=== PATIENT | male | born 1960 | race Caucasian/White ===

== ENCOUNTER 2019-08-02 17:05 | Emergency (ER) | payer OTHER, SELFPAY ==
--- NOTE | ~2019-08-02 | XR_ITS ---
EXAMINATION: XR chest 1V portable 08/02/2019 17:53 INDICATION: Chest pressure. Shortness of breath. PROCEDURE: AP portable chest COMPARISON: 11/22/2011 FINDINGS: The lungs are clear. The cardiomediastinal silhouette is within normal limits. There are no pleural effusions. There is no pneumothorax suspected. IMPRESSION: 1: NO ACUTE CARDIOPULMONARY DISEASE. Reviewed, dictated and finalized at location A.
--- NOTE | 2019-08-02 17:23 | ECG_ITS ---
Measurements Intervals Effort Rate: 68 P: -15 IN: 167 QRS: 16 QRSD: 80 T: 37 QT: 317 QTc: 338 Interpretive Statements SINUS RHYTHM ATRIAL PREMATURE COMPLEX NONSPECIFIC T-WAVE ABNORMALITY- LATERAL LEADS BORDERLINE ECG Electronically Signed On 08-03-2019 7:07:27 CDT by Prashanth Kennedy D.O.
[2019-08-02 17:24] VITALS: BP 177/70; PULSE 75; RESP 18; TEMP 37; O2SAT 20
[2019-08-02 17:35] LABS: Basophils Percent Auto 0.4 % (0.2-1.2); Eosinophils Absolute Auto 0.1 K/mm3 (0-0.3); Eosinophils Percent Auto 1.4 % (0-4.4); Hematocrit 44.1 % (42.0-52.0); Hemoglobin 14.2 g/dL (14.0-18.0); Immature Granulocyte Absolute 0.04 K/mm3 (0.00-0.031); Immature Granulocyte Percent A 0.4 % (0-0.5); Lymphocytes Absolute Auto 2.59 K/mm3 (0.9-3.2); Lymphocytes Percent Auto 28.2 % (18.3-44.2); Mean Corpuscular HGB Conc 32.2 g/dl (32-36); Mean Corpuscular Hemoglobin 26.8 pg (26-34); Mean Corpuscular Volume 83.2 fl (80-100); Monocytes Absolute Auto 0.7 K/mm3 (0.1-0.6); Monocytes Percent Auto 7.7 % (2.6-8.5); Neutrophils Absolute Auto 5.7 K/mm3 (1.3-6.7); Neutrophils Percent Auto 61.9 % (45.5-73.1); Platelet Count Result 248 k/mm3 (150-375); Red Cell Distribution Width 14.7 % (11.5-14.5); White Blood Count 9.2 K/mm3 (4.5-10.0)
[2019-08-02 17:44] LABS: INR 0.9; Prothrombin Time 12.3 Seconds (11.1-14.7)
[2019-08-02 17:45] LABS: Partial Thromboplastin Time 29.2 SECONDS (22.3-36.8)
[2019-08-02] MEDS: ASPIRIN 81 MG CHEWABLE TABLET 324 MG PO (17:46)
[2019-08-02 17:52] LABS: Blood Urea Nitrogen 20 mg/dL (9-20); Calcium 9.7 mg/dL (8.4-10.2); Carbon Dioxide 25 mmol/L (22-30); Chloride 106 mmol/L (98-107); Estimated CRCL calculation 86 ml/min; Estimated Glomerular Filt Rate > 60; Glucose 113 mg/dL (75-110); Potassium 4.1 mmol/L (3.4-5.0); Sodium 139 mmol/L (137-145)
[2019-08-02 18:04] LABS: Troponin I < 0.012 ng/mL (0.000-0.034)
--- NOTE | 2019-08-02 18:58 | ED.CHESTPAIN ---
HPI - Chest Pain General Chief Complaint: Chest Pain Stated Complaint: CHEST CONGESTION Time Seen by Provider: 08/02/19 17:32 Related Data Allergies Allergy/AdvReac Type Severity Reaction Status Date / Time No Known Allergies Allergy Unverified 07/06/16 12:13 [facility] Social History Social History Gender identity (if verbalized by the patient): Male Course Vital Signs Vital signs: Vital Signs Temperature 37.0 C 08/02/19 17:24 Pulse Rate 75 08/02/19 17:24 Respiratory Rate 18 08/02/19 17:24 Blood Pressure 177/70 H 08/02/19 17:24 Pulse Oximetry 20 L 08/02/19 17:24 Temperature 37.0 C 08/02/19 17:24 Pulse Rate 66 08/02/19 20:00 Respiratory Rate 20 08/02/19 20:00 Blood Pressure 124/85 08/02/19 20:00 Pulse Oximetry 98 08/02/19 20:00 MDM - Chest Pain Lab Data Result diagrams: 08/02/19 17:28 08/02/19 17:28 Labs: Lab Results 08/02/19 08/02/19 08/02/19 Range/Units 17:28 17:28 17:28 WBC 9.2 (4.5-10.0) K/mm3 RBC 5.30 (4.6-6.20) M/mm3 Hgb 14.2 (14.0-18.0) g/dL Hct 44.1 (42.0-52.0) % MCV 83.2 (80-100) fl MCH 26.8 (26-34) pg MCHC 32.2 (32-36) g/dl RDW 14.7 H (11.5-14.5) % Plt Count 248 (150-375) k/mm3 MPV 10.0 (7.4-10.4) fl Immature Gran % (Auto) 0.4 (0-0.5) % Neut % (Auto) 61.9 (45.5-73.1) % Lymph % (Auto) 28.2 (18.3-44.2) % [place] % (Auto) 7.7 (2.6-8.5) % Eos % (Auto) 1.4 (0-4.4) % Baso % (Auto) 0.4 (0.2-1.2) % Lymph # (Auto) 2.59 (0.9-3.2) K/mm3 [place] # (Auto) 0.7 H (0.1-0.6) K/mm3 Eos # (Auto) 0.1 (0-0.3) K/mm3 Baso # (Auto) 0.0 (0.0-0.1) K/mm3 Abs Immat Gran (auto) 0.04 H (0.00-0.031) K/mm3 Absolute Neuts (auto) 5.7 (1.3-6.7) K/mm3 Absolute Nucleated RBC 0.0 (0.0-0.012) K/mm3 Nucleated RBC % 0.0 (0.0-0.2) % PT 12.3 (11.1-14.7) Seconds INR 0.9 APTT 29.2 (22.3-36.8) SECONDS Sodium 139 (137-145) mmol/L Potassium 4.1 (3.4-5.0) mmol/L Chloride 106 (98-107) mmol/L Carbon Dioxide 25 (22-30) mmol/L BUN 20 (9-20) mg/dL Creatinine 1.00 (0.7-1.3) mg/dL Estim Creat Clear Calc 86 ml/min Estimated GFR > 60 (59 - ) Glucose 113 H (75-110) mg/dL Calcium 9.7 (8.4-10.2) mg/dL Troponin I < 0.012 (0.000-0.034) ng/mL 08/02/19 Range/Units 20:32 WBC (4.5-10.0) K/mm3 RBC (4.6-6.20) M/mm3 Hgb (14.0-18.0) g/dL Hct (42.0-52.0) % MCV (80-100) fl MCH (26-34) pg MCHC (32-36) g/dl RDW (11.5-14.5) % Plt Count (150-375) k/mm3 MPV (7.4-10.4) fl Immature Gran % (Auto) (0-0.5) % Neut % (Auto) (45.5-73.1) % Lymph % (Auto) (18.3-44.2) % [place] % (Auto) (2.6-8.5) % Eos % (Auto) (0-4.4) % Baso % (Auto) (0.2-1.2) % Lymph # (Auto) (0.9-3.2) K/mm3 [place] # (Auto) (0.1-0.6) K/mm3 Eos # (Auto) (0-0.3) K/mm3 Baso # (Auto) (0.0-0.1) K/mm3 Abs Immat Gran (auto) (0.00-0.031) K/mm3 Absolute Neuts (auto) (1.3-6.7) K/mm3 Absolute Nucleated RBC (0.0-0.012) K/mm3 Nucleated RBC % (0.0-0.2) % PT (11.1-14.7) Seconds INR APTT (22.3-36.8) SECONDS Sodium (137-145) mmol/L Potassium (3.4-5.0) mmol/L Chloride (98-107) mmol/L Carbon Dioxide (22-30) mmol/L BUN (9-20) mg/dL Creatinine (0.7-1.3) mg/dL Estim Creat Clear Calc ml/min Estimated GFR (59 - ) Glucose (75-110) mg/dL Calcium (8.4-10.2) mg/dL Troponin I Pending (0.000-0.034) ng/mL ECG Data EKG #1: EKG Interpretation: normal rate, sinus rhythm, no ectopy, no ST changes, normal QT and NL axis Discharge Plan Discharge Clinical Impression: Nonspecific chest pain Patient Disposition: Home, Self-Care Condition: Stable Instructions: Antibiotic Form, Chest Pain (ED) Additional Instructions: follow up in the office in 3-5 days Follow-up/Referrals: Rui,TIGRE Martinez [Primary Care Provider] - [facility]
[2019-08-02 19:00] VITALS: BP 122/75; PULSE 66; PULSE 67; RESP 22; O2SAT 97
--- NOTE | 2019-08-02 19:51 | PC.NURSE ---
Assumed care of pt at this time. report from Gema FLYNN and RINA muniz
[2019-08-02 20:00] VITALS: BP 124/85; PULSE 66; RESP 20; O2SAT 98
[2019-08-02 21:00] LABS: Troponin I < 0.012 ng/mL (0.000-0.034)
[2019-08-02 21:15] VITALS: BP 129/81; PULSE 62; RESP 19; O2SAT 99
== END 2019-08-02 21:15 | disposition home or self-care (01) ==
PROVIDERS: Emergency Medicine; Emergency Provider Emergency Medicine; PCP Nurse Practitioner Adult Health
DX: R07.9 Chest pain, unspecified (principal); I49.1 Atrial premature depolarization; R94.31 Abnormal electrocardiogram [ECG] [EKG]
CPT/HCPCS: 36415; 71045; 80048; 84484; 85025; 85610; 85730; 93005; 99284; A9270

== ENCOUNTER → 2019-10-16 11:29 | Outpatient (REF) | payer OTHER, SELFPAY | LOC: ANHLAB 11:29 | PROVIDERS: PCP Nurse Practitioner Adult Health; Visit Provider Nurse Practitioner | DX: D49.2 Neoplasm of unspecified behavior of bone, soft tissue, and skin (principal) | CPT/HCPCS: 88305 ==

== ENCOUNTER → 2019-11-27 14:53 | Outpatient (REF) | payer OTHER, SELFPAY | LOC: ANHLAB 14:53 | PROVIDERS: PCP Nurse Practitioner Adult Health; Visit Provider Nurse Practitioner | DX: L98.9 Disorder of the skin and subcutaneous tissue, unspecified (principal) | CPT/HCPCS: 88305 ==

== ENCOUNTER → 2019-12-25 08:20 | Outpatient (REF) | payer OTHER, SELFPAY | LOC: ANHLAB 08:20 | PROVIDERS: PCP Nurse Practitioner Adult Health; Visit Provider Nurse Practitioner | DX: C44.619 Basal cell carcinoma of skin of left upper limb, including shoulder (principal) | CPT/HCPCS: 88305; 88331 ==

== ENCOUNTER 2020-03-20 11:22 | Emergency (ER) | payer OTHER, SELFPAY ==
--- NOTE | ~2020-03-20 | CT_ITS ---
EXAMINATION: CT abdomen pelvis wo con EXAM DATE: 03/20/2020 12:38 INDICATION: right flank pain, UTI TECHNIQUE: Spiral CT of the abdomen and pelvis was performed without contrast. Axial, coronal and sag ittal images were reviewed. The dose-length product (DLP) for this examination was 1297.99 mGy-cm. The exposure was tailored according to patient size (auto mA exposure control), and iterative reconst ruction (ASIR) was used as additional dose reduction technique. Comparison is made to prior examinati on from 01/08/2004. FINDINGS: There is no nephrolithiasis or hydronephrosis. There is an exophytic right renal cyst measu ring 2 cm. The prostate is unremarkable. Some diffuse bladder wall thickening, could indicate chroni c cystitis. Acute cystitis not excludable. The liver, spleen, adrenal glands and pancreas are unrema rkable. Gallbladder is unremarkable. No biliary obstruction. There is no retroperitoneal or pelvic lymphadenopathy. There is mild scattered arteriosclerotic disease. The appendix is normal. The stomach and small bowel are unremarkable. There is expected amount of c olonic stool. No free intraperitoneal gas. The heart is normal in size. There are no pericardial or pleural effusions. The lung bases are unremarkable. There are no osteoblastic or osteolytic les ions identified. There is right hip replacement. IMPRESSION: 1. No nephrolithiasis, hydronephrosis or acute intra-abdominal findings. Reviewed, dictated and finalized at location B. [employer] AGENT
[2020-03-20 11:32] VITALS: BP 186/99; PULSE 68; RESP 18; TEMP 36.6; O2SAT 100
--- NOTE | 2020-03-20 11:58 | ED.BACK ---
HPI - Back Pain/Injury General Chief Complaint: Back Pain/Injury <BRITTNEY Mei Last Filed: 03/20/20 14:16> Stated Complaint: right flank pain - sharp <BRITTNEY Mei Last Filed: 03/20/20 14:16> Time Seen by Provider: 03/20/20 11:36 <BRITTNEY Mei Last Filed: 03/20/20 14:16> Source: patient <BRITTNEY Mei Last Filed: 03/20/20 14:16> Mode of arrival: ambulatory <BRITTNEY Mei Last Filed: 03/20/20 14:16> Limitations: no limitations <BRITTNEY Mei Last Filed: 03/20/20 14:16> History of Present Illness HPI Narrative: This is a 60 year old male that presents to the ER for right sided mid back pain since this morning. Reports the pain is sharp in nature and intermittent. No known injury or trauma. Pain is worse with palpation. Reports he recently had a TURP and subsequently developed renal failure and was admitted to [facility] for weeks. Reports he is on dialysis for this. He was just discharged 2 days ago. He had outpatient dialysis today. Denies fever, chest pain, shortness of breath, abdominal pain, nausea, vomiting, dysuria or hematuria. <BRITTNEY Mei Last Filed: 03/20/20 14:16> Related Data Home Medications: Home Medications Medication Instructions Recorded Confirmed atenolol 25 mg tablet 25 mg PO BID tablet 10/16/19 diclofenac sodium 75 mg tablet PO 10/16/19 tablet,delayed release tamsulosin 0.4 mg capsule ea PO 10/16/19 amlodipine 03/20/20 docusate sodium PO 03/20/20 ferrous sulfate mg DAILY 03/20/20 omeprazole 03/20/20 sevelamer carbonate 03/20/20 <BRITTNEY Mei Last Filed: 03/20/20 14:16> Allergies/Adverse Reactions: Allergies Allergy/AdvReac Type Severity Reaction Status Date / Time No Known Allergies Allergy Verified 03/20/20 11:59 <BRITTNEY Mei Filed: 03/20/20 14:16> Review of Systems Review of Systems: Narrative: CONSTITUTIONAL: Denies fever CARDIOVASCULAR: Denies chest pain, or edema. RESPIRATORY: Denies dyspnea. GASTROINTESTINAL: Denies abdominal pain, nausea, vomiting GENITOURINARY: Denies dysuria or hematuria. SKIN: Denies rash MUSCULOSKELETAL: Reports back pain, and myalgia. NEUROLOGIC: Denies numbness, or weakness. <Jodi Dash PA-C - Last Filed: 03/20/20 14:16> All systems reviewed & are unremarkable except as noted in HPI and below <Jodi Dash PA-C - Last Filed: 03/20/20 14:16> PMFSH Past Medical History Medical History: Medical History (Updated 03/20/20 @ 14:13 by Jodi Dash PA-C) History of end stage renal disease History of hypertension <Jodi Dash PA-C - Last Filed: 03/20/20 14:16> Surgical History Surgical History: Surgical History History of back surgery L4/L5 - 2006 & 2017 History of right hip replacement 2018 Hx of cholecystectomy <Jodi Dash PA-C - Last Filed: 03/20/20 14:16> Social History Social History: Social History Gender identity (if verbalized by the patient): Male <Jodi Dash PA-C - Last Filed: 03/20/20 14:16> Exam Narrative: Exam Narrative: GENERAL: Well-appearing, well-nourished, and in no acute distress. HEAD: Normocephalic, atraumatic. EYES: EOMI. CHEST: Clear to auscultation. No respiratory distress. No wheezes rales or rhonchi HEART: Regular rate and rhythm. No murmur heard. Normal peripheral pulses. ABDOMEN: Soft, nontender, nondistended, normal active bowel sounds. No CVA tenderness BACK: No midline spinal tenderness. Tender to palpation of right latissimus dorsi musculature EXTREMITIES: Normal range of motion. No edema. SKIN: Warm, dry, no rash. NEURO: No focal deficits. Alert and oriented x3. PSYCH: Normal mood and affect <Jodi Dash PA-C - Last Filed: 03/20/20 14:16> Course Vital Signs Vital signs:
[2020-03-20 12:16] LABS: Add Urine Microscopic? YES; Appearance Urine Cloudy (Clear); Bacteria Urine Trace /hpf; Bilirubin Urine Negative (Negative); Blood Urine 3+ (Negative); Color Urine Straw (Yellow); Glucose Urine UA Negative (Negative); Ketones Urine Negative (Negative); Leukocyte Esterase Ur 3+ LEU/UL (Negative); Nitrate Urine Negative (Negative); Protein Urine 2+ mg/dL (Negative); RBC Urine >75 /hpf (0-2); Specific Grav Ur 1.009 (1.001-1.035); Urobilinogen Urine Negative mg/dL (<2.0); WBC Urine 31-50 /hpf
[2020-03-20 12:22] LABS: Basophils Absolute Auto 0.1 K/mm3 (0.0-0.1); Basophils Percent Auto 1.2 % (0.2-1.2); Eosinophils Absolute Auto 0.3 K/mm3 (0-0.3); Eosinophils Percent Auto 3.3 % (0-4.4); Hematocrit 33.5 % (42.0-52.0); Immature Granulocyte Absolute 0.05 K/mm3 (0.00-0.031); Immature Granulocyte Percent A 0.6 % (0-0.5); Lymphocytes Absolute Auto 1.41 K/mm3 (0.9-3.2); Lymphocytes Percent Auto 16.5 % (18.3-44.2); Mean Corpuscular HGB Conc 32.8 g/dl (32-36); Mean Corpuscular Hemoglobin 26.3 pg (26-34); Mean Corpuscular Volume 80.1 fl (80-100); Mean Platelet Volume 9.7 fl (7.4-10.4); Monocytes Absolute Auto 0.8 K/mm3 (0.1-0.6); Monocytes Percent Auto 9.6 % (2.6-8.5); Neutrophils Absolute Auto 5.9 K/mm3 (1.3-6.7); Neutrophils Percent Auto 68.8 % (45.5-73.1); Platelet Count Result 318 k/mm3 (150-375); Red Blood Count 4.18 M/mm3 (4.6-6.20); Red Cell Distribution Width 15.6 % (11.5-14.5); White Blood Count 8.6 K/mm3 (4.5-10.0)
[2020-03-20 12:36] LABS: Anion Gap 13 mmol/L (8-16); Blood Urea Nitrogen 29 mg/dL (9-20); Calcium 8.3 mg/dL (8.4-10.2); Carbon Dioxide 28 mmol/L (22-30); Chloride 98 mmol/L (98-107); Estimated CRCL calculation 14 ml/min; Estimated Glomerular Filt Rate 9; Glucose 102 mg/dL (75-110); Potassium 4.6 mmol/L (3.4-5.0); Sodium 139 mmol/L (137-145)
[2020-03-20 13:14] VITALS: BP 117/66; PULSE 58; RESP 16; O2SAT 100
[2020-03-20 13:29] VITALS: BP 135/64; PULSE 63; O2SAT 100
[2020-03-20 14:30] VITALS: BP 133/81; PULSE 88; RESP 16; TEMP 36.6; O2SAT 97
[2020-03-20 14:40] VITALS: BP 133/81; PULSE 88; RESP 16; TEMP 36.6; O2SAT 98
== END 2020-03-20 14:40 | disposition home or self-care (01) ==
PROVIDERS: Physician Assistant; Emergency Provider Emergency Medicine; PCP Nurse Practitioner Adult Health
DX: N39.0 Urinary tract infection, site not specified (principal); I12.0 Hypertensive chronic kidney disease with stage 5 chronic kidney disease or end stage renal disease; N18.6 End stage renal disease; Z99.2 Dependence on renal dialysis; Z96.641 Presence of right artificial hip joint
CPT/HCPCS: 36415; 74176; 80048; 81001; 85025; 87086; 96365; 96375; 99284; J0131; J0696

== ENCOUNTER 2020-04-01 19:26 | Emergency (ER) | payer OTHER, SELFPAY ==
--- NOTE | ~2020-04-01 | CT_ITS ---
EXAMINATION: CT abdomen pelvis wo con DATE: 04/01/2020 20:51 INDICATION: Left-sided abdominal pain TECHNIQUE: Computed tomography (CT) of the abdomen and pelvis was performed without intravenous contr ast. The dose-length product (DLP) was 1225.17 mGy-cm. Automated exposure control and iterative recon struction technique were employed. COMPARISON: 03/20/2020 FINDINGS: The lung bases are clear. The heart size is normal. There is a partially imaged dialysis ca theter ending with its tip in the distal superior vena cava. The gallbladder is surgically absent. Th ere is mild enlargement of the common bile duct and central intrahepatic ducts which is likely due to post cholecystectomy state. The liver, spleen, pancreas, and adrenal glands are normal. Cysts of the kidneys measure up to 2.6 cm on the right. There is no free intraperitoneal gas or evidence of bowel obstruction. No pathologically enlarged abdominal or pelvic lymph nodes are identified. There is mil d inflammatory change seen anterior to the junction of the descending and sigmoid colon. No definite diverticula is noted. There are changes of right total hip arthroplasty. There is moderate lumbar spo ndylosis. IMPRESSION: 1. Left lower quadrant inflammatory change which appears to represent epiploic appendagitis given the absence of a corresponding diverticulum in this region. Reviewed, dictated and finalized at location A. [employer]
[2020-04-01 19:33] VITALS: BP 163/88; PULSE 81; RESP 16; TEMP 36.2; O2SAT 100
[2020-04-01 19:59] LABS: Basophils Absolute Auto 0.1 K/mm3 (0.0-0.1); Basophils Percent Auto 0.7 % (0.2-1.2); Eosinophils Absolute Auto 0.3 K/mm3 (0-0.3); Eosinophils Percent Auto 3.2 % (0-4.4); Hematocrit 35.5 % (42.0-52.0); Hemoglobin 11.3 g/dL (14.0-18.0); Immature Granulocyte Absolute 0.03 K/mm3 (0.00-0.031); Immature Granulocyte Percent A 0.4 % (0-0.5); Lymphocytes Absolute Auto 1.59 K/mm3 (0.9-3.2); Lymphocytes Percent Auto 19.7 % (18.3-44.2); Mean Corpuscular HGB Conc 31.8 g/dl (32-36); Mean Corpuscular Hemoglobin 26.5 pg (26-34); Mean Corpuscular Volume 83.3 fl (80-100); Mean Platelet Volume 8.9 fl (7.4-10.4); Monocytes Absolute Auto 0.7 K/mm3 (0.1-0.6); Monocytes Percent Auto 8.5 % (2.6-8.5); Neutrophils Absolute Auto 5.5 K/mm3 (1.3-6.7); Neutrophils Percent Auto 67.5 % (45.5-73.1); Platelet Count Result 245 k/mm3 (150-375); Red Blood Count 4.26 M/mm3 (4.6-6.20); Red Cell Distribution Width 15.3 % (11.5-14.5); White Blood Count 8.1 K/mm3 (4.5-10.0)
[2020-04-01 20:11] LABS: Alanine Aminotransferase 35 U/L (4-50); Albumin Level 4.5 g/dL (3.5-5.1); Alkaline Phosphatase 86 U/L (38-126); Anion Gap 15 mmol/L (8-16); Aspartate Amino Transferase 24 U/L (17-59); Bilirubin,Total 0.4 mg/dL (0.2-1.3); Blood Urea Nitrogen 63 mg/dL (9-20); Calcium 9.4 mg/dL (8.4-10.2); Carbon Dioxide 25 mmol/L (22-30); Chloride 100 mmol/L (98-107); Estimated CRCL calculation 8 ml/min; Estimated Glomerular Filt Rate 4; Glucose 112 mg/dL (75-110); Lipase 98 U/L (23-300); Potassium 4.7 mmol/L (3.4-5.0); Sodium 140 mmol/L (137-145)
[2020-04-01] MEDS: MORPHINE SULFATE (*CRX) 4 MG/ML INJ IV PUSH (20:13)
--- NOTE | 2020-04-01 20:45 | ED.GENADULT ---
HPI - General Adult General Chief complaint: Abdominal Pain Stated complaint: abdominal pain Time Seen by Provider: 04/01/20 19:47 History of Present Illness HPI narrative: Patient is a 60-year-old male who presents to the ER with left-sided abdominal pain. Ongoing for the last day. Sharp and nonradiating. Worse with palpation. No history of diverticulitis. Reports he has loose stools due to taking a stool softener. He has been having some nausea with this. Reports history of hemodialysis due to developing kidney failure after having a TURP procedure performed at [facility]. Sees nephrology as well as urology at that location. Related Data Home Medications Medication Instructions Recorded Confirmed atenolol 25 mg tablet 25 mg PO BID tablet 10/16/19 diclofenac sodium 75 mg tablet PO 10/16/19 tablet,delayed release tamsulosin 0.4 mg capsule ea PO 10/16/19 amlodipine 03/20/20 docusate sodium PO 03/20/20 ferrous sulfate mg DAILY 03/20/20 omeprazole 03/20/20 sevelamer carbonate 03/20/20 Allergies Allergy/AdvReac Type Severity Reaction Status Date / Time No Known Allergies Allergy Verified 03/20/20 11:59 Review of Systems Review of Systems: All systems reviewed & are unremarkable except as noted in HPI and below Constitutional: Constitutional: Reports chills, Denies fever(s) and Denies weakness Gastrointestinal: Gastrointestinal: Reports abdominal pain, Reports diarrhea, Reports nausea and Denies vomiting Musculoskeletal: Musculoskeletal: Denies back pain and Denies muscle cramps PMFSH Past Medical History Medical History (Updated 04/01/20 @ 21:42 by Adonis Christiansen MD) History of end stage renal disease History of hypertension Surgical History Surgical History (Updated 04/01/20 @ 20:49 by Adonis Christiansen MD) History of back surgery L4/L5 - 2006 & 2017 History of right hip replacement 2018 History of transurethral resection of prostate Hx of cholecystectomy Social History Social History Gender identity (if verbalized by the patient): Male Exam Narrative: Exam Narrative: GENERAL: Well-appearing, well-nourished, and in no acute distress. HEAD: Normocephalic, atraumatic. CHEST: Clear to auscultation. No respiratory distress. HEART: Regular rate and rhythm. Normal peripheral pulses. ABDOMEN: Soft, mild tenderness left mid and upper quadrant of the abdomen, no guarding, nondistended. EXTREMITIES: Normal range of motion. No edema. SKIN: Warm, dry, no rash. NEURO: Alert and oriented x3. PSYCH: Normal mood and affect. Course Course Emergency Course: Informed of results. Discharge home. Vital Signs Vital signs: Vital Signs Temperature 97.1 F L 04/01/20 19:33 Pulse Rate 81 04/01/20 19:33 Respiratory Rate 16 04/01/20 19:33 Blood Pressure 163/88 H 04/01/20 19:33 Pulse Oximetry 100 04/01/20 19:33 Temperature 97.1 F L 04/01/20 19:33 Pulse Rate 81 04/01/20 19:33 Respiratory Rate 16 04/01/20 19:33 Blood Pressure 163/88 H 04/01/20 19:33 Pulse Oximetry 100 04/01/20 19:33 Medical Decision Making Vital Signs Vital Signs: Vital Signs Temperature 97.1 F L 04/01/20 19:33 Pulse Rate 81 04/01/20 19:33 Respiratory Rate 16 04/01/20 19:33 Blood Pressure 163/88 H 04/01/20 19:33 Pulse Oximetry 100 04/01/20 19:33 Temperature 97.1 F L 04/01/20 19:33 Pulse Rate 81 04/01/20 19:33 Respiratory Rate 16 04/01/20 19:33 Blood Pressure 163/88 H 04/01/20 19:33 Pulse Oximetry 100 04/01/20 19:33 Lab Data Result diagrams: 04/01/20 19:53 04/01/20 19:53 Labs: Lab Results 04/01/20 04/01/20 Range/Units 19:53 19:53 WBC 8.1 (4.5-10.0) K/mm3 RBC 4.26 L (4.6-6.20) M/mm3 Hgb 11.3 L (14.0-18.0) g/dL Hct 35.5 L (42.0-52.0) % MCV 83.3 (80-100) fl MCH 26.5 (26-34) pg MCHC 31.8 L (32-36) g/dl RDW 15.3
[2020-04-01 22:00] VITALS: BP 120/75; PULSE 88; RESP 19; O2SAT 100
[2020-04-01] MEDS: MORPHINE SULFATE (*CRX) 2 MG/ML INJ IV PUSH (22:00)
== END 2020-04-01 22:00 | disposition home or self-care (01) ==
PROVIDERS: Emergency Medicine; Emergency Provider Emergency Medicine; PCP Nurse Practitioner Adult Health
DX: K63.89 Other specified diseases of intestine (principal); I12.0 Hypertensive chronic kidney disease with stage 5 chronic kidney disease or end stage renal disease; N18.6 End stage renal disease; Z99.2 Dependence on renal dialysis
CPT/HCPCS: 36415; 74176; 80053; 83690; 85025; 96374; 96376; 99284; J2270

== ENCOUNTER → 2020-11-18 15:13 | Outpatient (REF) | payer OTHER, SELFPAY | LOC: ANHLAB 15:13 | PROVIDERS: PCP Nurse Practitioner Adult Health; Visit Provider Nurse Practitioner | DX: D49.2 Neoplasm of unspecified behavior of bone, soft tissue, and skin (principal) | CPT/HCPCS: 88305 ==

== ENCOUNTER → 2021-01-20 07:16 | Outpatient (REF) | payer OTHER, SELFPAY | LOC: ANHLAB 07:16 | PROVIDERS: PCP Nurse Practitioner Adult Health; Visit Provider Nurse Practitioner | DX: C44.329 Squamous cell carcinoma of skin of other parts of face (principal) | CPT/HCPCS: 88305; 88331 ==

== ENCOUNTER → 2021-02-14 08:08 | Outpatient (CLI) | payer OTHER, SELFPAY ==
[2021-02-14 16:43] LABS: SARS-CoV-2 RNA PCR Negative
== END ==
PROVIDERS: PCP Nurse Practitioner Adult Health; Visit Provider Nurse Practitioner Adult Health
DX: Z20.822 Contact with and (suspected) exposure to COVID-19 (principal); R09.81 Nasal congestion
CPT/HCPCS: C9803; U0003; U0005

== ENCOUNTER → 2021-05-09 00:46 | Outpatient (CLI) | payer OTHER, SELFPAY ==
[2021-05-10 18:18] LABS: SARS-CoV-2 RNA PCR Negative
== END ==
PROVIDERS: PCP Nurse Practitioner Adult Health; Visit Provider Internal Medicine Gastroenterology
DX: Z01.812 Encounter for preprocedural laboratory examination (principal); Z20.822 Contact with and (suspected) exposure to COVID-19
CPT/HCPCS: C9803; U0003; U0005

== ENCOUNTER 2021-05-12 00:28 | Day surgery (SDC) | payer OTHER, SELFPAY ==
[2021-04-30 13:50] VITALS: BMI 32.8
[2021-05-12 06:35] VITALS: BP 139/78; PULSE 60; RESP 18; TEMP 36.1; O2SAT 99
[2021-05-12] MEDS: LACTATED RINGERS 1,000 ML 150 ML IV CONT (06:38)
--- NOTE | 2021-05-12 07:09 | WPDANESEPPF ---
Anes - Initial Pre Proc Eval Procedure: Operation Date: 05/12/21 08:00 Proposed Procedures p Esophagogastroduodenoscopy & Colonoscopy - Mekhi Covington MD Date/Time: 05/12/21 07:09 Surgeon: Mekhi Covington MD Pre Op Diagnosis: abnormal CAT scan Patient Data Age: 61 Gender: M Height: 1.8 m Weight: 106.7 kg Last Vital Signs Temp 36.1 C L 05/12/21 06:35 Pulse 60 05/12/21 06:35 Resp 18 05/12/21 06:35 BP 139/78 05/12/21 06:35 Pulse Ox 99 05/12/21 06:35 Allergies Allergy/AdvReac Type Severity Reaction Status Date / Time No Known Allergies Allergy Verified 05/12/21 06:32 Home Medications Medication Instructions Recorded Confirmed Type atenolol 25 mg tablet 25 mg PO BID tablet 10/16/19 04/30/21 History amlodipine 5 mg PO DAILY 03/20/20 04/30/21 History famotidine 20 mg PO DAILY 04/30/21 04/30/21 History fluoxetine 20 mg PO DAILY 04/30/21 04/30/21 History furosemide 40 mg PO DAILY 04/30/21 04/30/21 History pravastatin 20 mg PO DAILY 04/30/21 04/30/21 History Patient hx anesthesia problems: none Family hx anesthesia problems: none Results Review: All pre-operative results and documents have been reviewed as part of the pre-operative evaluation. [facility] Past Medical History Medical History History of end stage renal disease History of hypertension Surgical History Surgical History History of back surgery L4/L5 - 2006 & 2017 History of right hip replacement 2018 History of transurethral resection of prostate Hx of cholecystectomy Social History Social History Smoking status: Never smoker Alcohol intake: never Substance use: never Substance use type: does not use Living arrangements: with family Gender identity (if verbalized by the patient): Male Spiritual care concerns: No Anes - Eval Final PreProcedure Day of Procedure 05/12/21 07:09 Patient weight: obese Heart: regular rate and rhythm Lungs: clear to auscultation Airway: Mallampati scale class II Neurological: alert and oriented Last oral intake: >/= 8 hours ASA classification: III Emergent: no Anesthetic plan: proceed Anesthesia type and monitoring: general GIVS and standard monitoring Results Review: All pre-operative results and documents have been reviewed as part of the pre-operative evaluation. Informed Consent: The patient's anesthetic plan and its attendant risks and benefits were discussed with the patient/family/POA. Questions were solicited and answers provided to the satisfaction of the patient/family/POA.
--- NOTE | 2021-05-12 08:04 | PM.HPGS ---
History of Present Illness History of Present Illness Consent: Risks, benefits, and alternatives have been discussed and questions answered. Patient agrees to proceed with procedure. Chief complaint: abnormal CAT scan Narrative: Junior Rand II is a 61 year old male with intermittent abdominal pain for 3 months, h/o GERD using omeprazole as needed, last colonoscopy about [address] scan showed thickening rectosigmoid and stomach. Review of Systems Constitutional: Constitutional: Denies headache(s) and Denies weakness Eyes: Eyes: Denies blurry vision ENT: Reports Normal hearing present, Denies headache(s) and Denies neck pain Cardiovascular: Cardiovascular: Denies chest pain and Denies dyspnea Respiratory: Respiratory: Denies dyspnea Gastrointestinal: Gastrointestinal: Reports no additional gastrointestinal complaints Genitourinary: Genitourinary: Denies dysuria Musculoskeletal: Musculoskeletal: Denies neck pain Integumentary/Breasts: Skin/Breast: Denies dry skin Neurologic: Reports Normal hearing present, Denies headache(s) and Denies weakness Psychiatric: Psychiatric: Denies anxiety Endocrine: Endocrine: Denies change in body appearance Hematologic/Lymphatic: Hematologic/Lymphatic: Denies easy bleeding Allergic/Immunologic: Allergic/Immunologic: Denies urticaria PMFSH Past Medical History Medical History (Updated 05/12/21 @ 08:12 by Mekhi Covington MD) Abdominal pain Abnormal CT of the abdomen History of end stage renal disease History of hypertension Surgical History Surgical History History of back surgery L4/L5 - 2006 & 2017 History of right hip replacement 2018 History of transurethral resection of prostate Hx of cholecystectomy Social History Social History Smoking status: Never smoker Alcohol intake: never Substance use: never Substance use type: does not use Living arrangements: with family Gender identity (if verbalized by the patient): Male Spiritual care concerns: No Meds Home Medications and Allergies Home Medications Medication Instructions Recorded Confirmed Type atenolol 25 mg tablet 25 mg PO BID tablet 10/16/19 04/30/21 History amlodipine 5 mg PO DAILY 03/20/20 04/30/21 History famotidine 20 mg PO DAILY 04/30/21 04/30/21 History fluoxetine 20 mg PO DAILY 04/30/21 04/30/21 History furosemide 40 mg PO DAILY 04/30/21 04/30/21 History pravastatin 20 mg PO DAILY 04/30/21 04/30/21 History Allergies Allergy/AdvReac Type Severity Reaction Status Date / Time No Known Allergies Allergy Verified 05/12/21 06:32 Vital Signs Vital Signs - 24 hr 05/12/21 06:35 Temperature 97.0 F L Pulse Rate 60 Respiratory Rate 18 Blood Pressure 139/78 Pulse Oximetry 99 Exam Const: General: comfortable and no acute distress HENMT: General nose exam: Normal nares present Eyes: General: appearance normal, both eyes and all related structures Neck: Neck: no JVD Resp: Auscultation: clear to auscultation bilaterally Cardio: Rate: regular rate Rhythm: regular rhythm GI: Inspection: non-distended GI Palp: Yes Soft to palpation Skin: General skin exam: normal color Neuro: General: gait normal Speech: normal speech Extrem: General: normal to inspection Psych: Mental Status: mental status grossly normal Assessment and Plan Assessment and plan (1) Abnormal CT of the abdomen: Code(s): R93.5 - Abnormal findings on diagnostic imaging of other abdominal regions, including retroperitoneum Status: Acute Assessment and Plan: egd and colonoscopy (2) Abdominal pain: Code(s): R10.9 - Unspecified abdominal pain Status: Acute
--- NOTE | 2021-05-12 08:16 | SUR.OPER ---
EGD end 811 Colonoscopy start 815
[2021-05-12 08:29] VITALS: BP 106/54; BP 107/59; PULSE 60; PULSE 62; RESP 14; RESP 20; O2SAT 100; O2SAT 97
[2021-05-12 08:39] VITALS: BP 102/51; PULSE 58; RESP 18; O2SAT 100
== END 2021-05-12 08:56 | disposition home or self-care (01) ==
PROVIDERS: PCP Nurse Practitioner Adult Health; Visit Provider Internal Medicine Gastroenterology
PROC: 0DJ08ZZ Inspection of Upper Intestinal Tract, Via Natural or Artificial Opening Endoscopic (ICD-10-PCS; CPT 43235; principal; 2021-05-12 08:00)
DX: K63.5 Polyp of colon (principal); D12.0 Benign neoplasm of cecum; R10.84 Generalized abdominal pain; K44.9 Diaphragmatic hernia without obstruction or gangrene; K29.70 Gastritis, unspecified, without bleeding; E66.9 Obesity, unspecified; Z68.32 Body mass index [BMI] 32.0-32.9, adult
CPT/HCPCS: 45385; 45380; 43239; 88305; J2001; J2704; J7120

== ENCOUNTER → 2021-06-17 01:29 | Outpatient (CLI) | payer OTHER, SELFPAY ==
[2021-06-17 11:52] LABS: SARS-CoV-2 RNA PCR Positive
== END ==
PROVIDERS: PCP Nurse Practitioner Adult Health; Visit Provider Internal Medicine Gastroenterology
DX: Z01.812 Encounter for preprocedural laboratory examination (principal); U07.1 COVID-19
CPT/HCPCS: C9803; U0003; U0005

== ENCOUNTER 2021-07-23 09:25 | Outpatient (CLI) | payer OTHER, SELFPAY ==
--- NOTE | ~2021-07-23 | CT_ITS ---
EXAMINATION: CT abdomen pelvis wo con DATE: 07/23/2021 10:07 INDICATION: Retroperitoneal lymphadenopathy. TECHNIQUE: Computed tomography (CT) of the abdomen and pelvis was performed without intravenous contr ast. Automated exposure control and iterative reconstruction technique were employed. The dose-length product was 1128.12 mGy-cm. COMPARISON: CT abdomen and pelvis 04/01/2020 FINDINGS: The visualized portions of the lung bases demonstrate a stable 7 mm nodule in left lower lo be, likely benign. No pleural effusion. The heart size is normal. There are coronary artery calcifica tions. No pericardial effusion. The liver and spleen are normal. There are changes of cholecystectomy . The pancreas and adrenal glands are normal. There is a 3.5 cm cyst in right kidney. Left kidney is normal. There is no urolithiasis. There are no dilated loops of bowel. The appendix is normal. There are no pathologically enlarged lymph nodes. There is a total right hip arthroplasty. There is moderat e thoracolumbar spondylosis. IMPRESSION: 1. No lymphadenopathy. Reviewed, dictated and finalized at location A. IMPRESSION: 1. No lymphadenopathy.
[2021-07-23 09:45] LABS: Estimated Glomerular Filt Rate 26
== END 2021-07-23 09:26 | disposition home or self-care (01) ==
LOC: ANHIMG 09:29
PROVIDERS: PCP Nurse Practitioner Adult Health; Visit Provider Internal Medicine Hematology & Oncology
DX: R59.0 Localized enlarged lymph nodes (principal); I25.10 Atherosclerotic heart disease of native coronary artery without angina pectoris; N28.1 Cyst of kidney, acquired; M47.815 Spondylosis without myelopathy or radiculopathy, thoracolumbar region; Z96.651 Presence of right artificial knee joint
CPT/HCPCS: 74176

== ENCOUNTER 2022-01-21 14:36 | Emergency (ER) | payer OTHER, SELFPAY ==
[2022-01-21 14:42] VITALS: BP 145/79; PULSE 67; RESP 18; TEMP 36.4; O2SAT 98
--- NOTE | 2022-01-21 14:54 | ED.WOUNDLAC ---
HPI - Wound/Laceration General Chief Complaint: Wound/Laceration Stated Complaint: Cut Pinky Finger Lt Hand Time Seen by Provider: 01/21/22 14:54 History of Present Illness HPI narrative: Junior Rand is a 61-year-old male with a PMH of high blood pressure, ADD, GERD, depression, high cholesterol, past kidney disease, who [facility] a fingertip amputation of skin that occurred yesterday at work. Patient cut his tip of left fifth finger with a knife and it has not totally quit bleeding. His tetanus shot is up-to-date Related Data Home Medications Medication Instructions Recorded Confirmed atenolol 25 mg tablet 25 mg PO BID 10/16/19 01/21/22 pravastatin 20 mg tablet 20 mg PO DAILY 04/30/21 01/21/22 dextroamphetamine-amphetamine 10 10 mg PO DAILY 11/21/21 01/21/22 mg tablet fluticasone propionate 50 2 spray intranasal DAILY 01/21/22 01/21/22 mcg/actuation nasal spray,suspension Allergies Allergy/AdvReac Type Severity Reaction Status Date / Time No Known Allergies Allergy Verified 01/21/22 14:38 Review of Systems Review of Systems: CONSTITUTIONAL: Denies fever, chills, sweats. EYES: Denies visual changes, redness, discharge. ENT: Denies rhinorrhea, congestion, sore throat, otalgia. CARDIOVASCULAR: Denies chest pain, palpitations, edema. RESPIRATORY: Denies dyspnea, wheezing, cough GASTROINTESTINAL: Denies abdominal pain, nausea, vomiting, diarrhea. GENITOURINARY: Denies dysuria, hematuria, abnormal discharge SKIN: Denies rash or itching. NEUROLOGIC: Denies numbness, or focal weakness. PSYCHIATRIC: Denies anxiety or depression. Small skin amputation of left fifth finger at the tip PMFSH Past Medical History Medical History Abdominal pain Abnormal CT of the abdomen History of end stage renal disease History of hypertension Surgical History Surgical History History of back surgery L4/L5 - 2006 & 2017 History of right hip replacement 2018 History of transurethral resection of prostate Hx of cholecystectomy Social History Social History Smoking status: Never smoker Alcohol intake: never Substance use: never Substance use type: does not use Gender identity (if verbalized by the patient): Male Spiritual care concerns: No Comments At time of signature, I agree with nursing past medical, surgical, social and family history. There is no relevant family history pertinent to the presenting complaint. Exam Narrative: GENERAL: This is a well-nourished, well-developed patient, in mild distress. HEAD: normocephalic, atraumatic. EYES: . Sclera clear/white. Vision is grossly intact. EARS: External ears normal, Hearing grossly intact. NOSE: External nose normal without nasal discharge, nares without redness, no rhinorrhea. THROAT: Mucous membranes moist, NECK: Neck supple, non-tender CARDIOVASCULAR: Regular rate and rhythm without murmurs, gallops, or rubs. RESPIRATORY: Clear to auscultation. Breath sounds equal bilaterally. No wheezes, rales, or rhonchi. GASTROINTESTINAL: Not done SKIN: warm, intact with no suspicious lesions or rash, good texture and turgor. Has small left fifth finger tip skin amputation that measures about 1 cm around NEURO: awake, alert, and oriented to person, place and time. There were no obvious focal neurologic abnormalities. Steady gait EXTREMITIES: Normal range of motion. BACK: Nontender without deformity Course Course Emergency Course: Patient's finger of the left hand fifth finger fingertip amputated skin yesterday while working Has been unable to get adequate bleeding Patient's hand is cleaned and Surgicel applied and wrapped given directions about how to manage removal Surgicel, keep finger dry, finger plint place. Remove in 1 week Level of Care: Express Care Visit Vital Signs
== END 2022-01-21 15:15 | disposition home or self-care (01) ==
PROVIDERS: Emergency Provider Nurse Practitioner; PCP Nurse Practitioner Adult Health
DX: S61.207A Unspecified open wound of left little finger without damage to nail, initial encounter (principal); W26.0XXA Contact with knife, initial encounter; Y99.0 Civilian activity done for income or pay; I10 Essential (primary) hypertension; K21.9 Gastro-esophageal reflux disease without esophagitis; F98.8 Other specified behavioral and emotional disorders with onset usually occurring in childhood and adolescence; E78.00 Pure hypercholesterolemia, unspecified
CPT/HCPCS: 29130; 99212; G0463

== ENCOUNTER 2022-05-11 08:25 | Outpatient (CLI) | payer OTHER, SELFPAY ==
--- NOTE | ~2022-05-11 | CT_ITS ---
EXAMINATION: CT abdomen pelvis wo con DATE: 05/11/2022 09:26 INDICATION: Enlarged lymph nodes TECHNIQUE: Computed tomography (CT) of the abdomen and pelvis was performed without intravenous contr ast. Automated exposure control and iterative reconstruction technique were employed. Exam dose: 134 8.96 mGy-cm total exam DLP. COMPARISON: 07/23/2021 CT abdomen pelvis FINDINGS: The lung bases are clear of infiltrate or consolidation. Normal heart size. Coronary artery calcifications. Status post cholecystectomy. The liver, spleen, pancreas, and adrenal glands are unremarkable. 3.4 cm lateral lower pole right renal exophytic cyst. The kidneys are otherwise unremarkable on this limited noncontrast examination. No urinary tract calculus or hydroureteronephrosis. Normal caliber of the abdominal aorta. No intraperitoneal or retroperitoneal or pelvic mass lesion or adenopathy or ascites. Normal appendix. No bowel obstruction, bowel wall thickening, pneumatosis or intraperitoneal free air . Urinary bladder and prostate gland appear unremarkable. Small bilateral fat-containing inguinal herni as and small fat-containing umbilical hernia. Status post right total hip arthroplasty Degenerative changes of the lower thoracic and lumbar spine. No suspicious osteolytic or osteoblastic lesions are noted. IMPRESSION: No adenopathy is detected Status post cholecystectomy Right renal cyst Reviewed, dictated and finalized at [facility]. Reviewed, dictated and finalized at [facility]. GNMENT DESK ASSISTANT
[2022-05-11 09:06] LABS: Estimated Glomerular Filt Rate 25
== END 2022-05-11 08:26 | disposition home or self-care (01) ==
PROVIDERS: PCP Family Medicine; Visit Provider Internal Medicine Hematology & Oncology
DX: R59.9 Enlarged lymph nodes, unspecified (principal); N28.1 Cyst of kidney, acquired
CPT/HCPCS: 74176

== ENCOUNTER 2022-05-18 13:38 | Outpatient (CLI) | payer OTHER, SELFPAY ==
[2022-05-18 14:07] LABS: Basophils Absolute Auto 0.1 K/mm3 (0.0-0.1); Basophils Percent Auto 0.6 % (0.2-1.2); Eosinophils Absolute Auto 0.1 K/mm3 (0-0.3); Eosinophils Percent Auto 0.4 % (0-4.4); Hematocrit 41.8 % (42.0-52.0); Hemoglobin 13.5 g/dL (14.0-18.0); Immature Granulocyte Absolute 0.23 K/mm3 (0.00-0.031); Immature Granulocyte Percent A 1.9 % (0-0.5); Lymphocytes Absolute Auto 1.72 K/mm3 (0.9-3.2); Lymphocytes Percent Auto 14.5 % (18.3-44.2); Mean Corpuscular HGB Conc 32.3 g/dl (32-36); Mean Corpuscular Hemoglobin 27.8 pg (26-34); Mean Corpuscular Volume 86.2 fl (80-100); Mean Platelet Volume 9.2 fl (7.4-10.4); Monocytes Absolute Auto 0.7 K/mm3 (0.1-0.6); Monocytes Percent Auto 6.1 % (2.6-8.5); Neutrophils Absolute Auto 9.1 K/mm3 (1.3-6.7); Neutrophils Percent Auto 76.5 % (45.5-73.1); Platelet Count Result 279 k/mm3 (150-375); Red Blood Count 4.85 M/mm3 (4.6-6.20); Red Cell Distribution Width 14.9 % (11.5-14.5); White Blood Count 11.9 K/mm3 (4.5-10.0)
[2022-05-18 15:38] LABS: Alanine Aminotransferase 28 U/L (6-50); Albumin Level 4.1 g/dL (3.5-5.1); Alkaline Phosphatase 77 U/L (38-126); Anion Gap 10 mmol/L (8-16); Aspartate Amino Transferase 21 U/L (17-59); Bilirubin,Total 0.3 mg/dL (0.2-1.3); Blood Urea Nitrogen 41 mg/dL (9-20); Calcium 8.5 mg/dL (8.4-10.2); Carbon Dioxide 18 mmol/L (22-30); Chloride 112 mmol/L (98-107); Estimated Glomerular Filt Rate 29; Glucose 135 mg/dL (65-110); Lactate Dehydrogenase 165 U/L (120-246); Sodium 140 mmol/L (137-145)
== END 2022-05-18 13:39 | disposition home or self-care (01) ==
LOC: ANHLAB 13:39
PROVIDERS: PCP Family Medicine; Visit Provider Internal Medicine Hematology & Oncology
DX: R59.0 Localized enlarged lymph nodes (principal)
CPT/HCPCS: 36415; 80053; 83615; 85025

== ENCOUNTER 2022-07-16 11:00 | Emergency (ER) | payer OTHER, SELFPAY ==
--- NOTE | ~2022-07-16 | XR_ITS ---
Clinical Indication: Shortness of breath PA and lateral views of the chest: Comparison: 08/02/2019 Findings: The lungs are clear, without evidence of focal consolidation or pleural effusion. Cardiome diastinal silhouette is within normal limits. Bones and soft tissues are unremarkable. Impression: Normal chest. Reviewed, dictated and finalized at [facility]. Impression: Normal chest.
--- NOTE | 2022-07-16 11:16 | ECG_ITS ---
Measurements Intervals [place] Rate: 72 P: 34 CO: 166 QRS: 11 QRSD: 86 T: 84 QT: 348 QTc: 383 Interpretive Statements SINUS RHYTHM ATRIAL PREMATURE COMPLEX NONSPECIFIC T-WAVE ABNORMALITY- LAT/HIGH LAT LEADS BASELINE ARTIFACT- I, II, III, AVR, AVL, AVF BORDERLINE ECG COMPARED TO ECG 08/02/2019 17:41:50 T-WAVE ABNORMALITY NOW PRESENT Electronically Signed On 07-16-2022 11:53:26 CDT by Prashanth Kennedy D.O.
[2022-07-16 11:17] VITALS: BP 140/96; PULSE 73; RESP 20; TEMP 36.6; O2SAT 98
[2022-07-16 11:38] LABS: Basophils Absolute Auto 0.1 K/mm3 (0.0-0.1); Basophils Percent Auto 0.9 % (0.2-1.2); Eosinophils Absolute Auto 0.2 K/mm3 (0-0.3); Eosinophils Percent Auto 1.9 % (0-4.4); Hematocrit 43.3 % (42.0-52.0); Hemoglobin 14.3 g/dL (14.0-18.0); Immature Granulocyte Absolute 0.47 K/mm3 (0.00-0.031); Immature Granulocyte Percent A 4.1 % (0-0.5); Lymphocytes Absolute Auto 2.71 K/mm3 (0.9-3.2); Lymphocytes Percent Auto 23.4 % (18.3-44.2); Mean Corpuscular Hemoglobin 28.7 pg (26-34); Mean Corpuscular Volume 86.8 fl (80-100); Mean Platelet Volume 9.2 fl (7.4-10.4); Monocytes Absolute Auto 0.8 K/mm3 (0.1-0.6); Monocytes Percent Auto 6.8 % (2.6-8.5); Neutrophils Absolute Auto 7.3 K/mm3 (1.3-6.7); Neutrophils Percent Auto 62.9 % (45.5-73.1); Platelet Count Result 289 k/mm3 (150-375); Red Blood Count 4.99 M/mm3 (4.6-6.20); Red Cell Distribution Width 15.6 % (11.5-14.5); White Blood Count 11.6 K/mm3 (4.5-10.0)
[2022-07-16 12:01] LABS: Alanine Aminotransferase 29 U/L (6-50); Albumin Level 4.3 g/dL (3.5-5.1); Alkaline Phosphatase 73 U/L (38-126); Anion Gap 10 mmol/L (8-16); Aspartate Amino Transferase 21 U/L (17-59); Bilirubin,Total 0.5 mg/dL (0.2-1.3); Blood Urea Nitrogen 47 mg/dL (9-20); Calcium 8.7 mg/dL (8.4-10.2); Carbon Dioxide 20 mmol/L (22-30); Chloride 111 mmol/L (98-107); Estimated CRCL calculation 30 ml/min; Estimated Glomerular Filt Rate 32; Glucose 148 mg/dL (65-110); Potassium 3.7 mmol/L (3.4-5.0); Sodium 141 mmol/L (137-145)
--- NOTE | 2022-07-16 14:30 | ED.SOB ---
HPI - SOB/Dyspnea General Chief Complaint: Shortness of Breath/Dyspnea Stated Complaint: shortness breath Time Seen by Provider: 07/16/22 14:16 History of Present Illness HPI Narrative: Patient is a 62-year-old male with a history of CKD here for evaluation of dyspnea over the past month. Patient states he seen his primary care doctor for this issue, has been placed on 2 rounds of steroids, 1 round of antibiotics. These interventions have transiently improved his symptoms but he states they have gradually returned over the past several days. Reports a productive cough and wheezing. No history of COPD or asthma. Contacted his PCP about his symptoms today who recommended ED evaluation. He denies any leg swelling, chest pain, syncope, palpitations, sick contacts. Reportedly he has not been tested for COVID or flu yet. Related Data Home Medications Medication Instructions Recorded Confirmed atenolol 25 mg tablet 25 mg PO BID 10/16/19 01/21/22 pravastatin 20 mg tablet 20 mg PO DAILY 04/30/21 01/21/22 fluticasone propionate 50 2 spray intranasal DAILY 01/21/22 01/21/22 mcg/actuation nasal spray,suspension sodium bicarbonate-sodium chloride ea miscellaneous 06/01/22 powder cholecalciferol (vitamin D3) 25 25 mcg PO DAILY 06/25/22 mcg (1,000 unit) capsule Allergies Allergy/AdvReac Type Severity Reaction Status Date / Time No Known Allergies Allergy Verified 06/01/22 10:05 Review of Systems Review of Systems: Gen.: Denies fevers or chills Eyes: Denies eye pain or visual change ENT: Denies congestion Respiratory: Reports shortness of breath and cough CV: Denies chest pain or palpitations GI: Denies abdominal pain nausea, emesis or diarrhea denies burning, urgency, frequency or hematuria Musculoskeletal: Denies back pain or muscle pain Neuro: Denies numbness, tingling, weakness or focal weakness Skin: Denies rash Except as documented, all other systems reviewed and negative [facility] Past Medical History Medical History Abdominal pain Abnormal CT of the abdomen History of end stage renal disease History of hypertension Surgical History Surgical History History of back surgery L4/L5 - 2006 & 2017 History of right hip replacement 2018 History of transurethral resection of prostate Hx of cholecystectomy Social History Social History Smoking status: Never smoker Alcohol intake: never Substance use: never Substance use type: does not use Lack of Transportation: No Lack of Food: Never True Current Housing: I Have Housing Concerned About Future Housing: No Difficulty Paying Gas/Electric Bills: No Difficulty Paying for Meds: YES Currently Unemployed: No Education: Trade/Vocational Certificate Living arrangements: with family Gender identity (if verbalized by the patient): Male Spiritual care concerns: No Exam Narrative: APPEARANCE: Well appearing, no pain in distress, well-nourished. Head: Normocephalic and atraumatic. EYES: PERRLA/EOMI, conjunctivae clear NOSE: No nasal drainage EARS: External ear normal in appearance THROAT: Oropharynx is clear. Mucous membranes are moist. NECK: Supple. No adenopathy, no masses. RESPIRATORY: Airway patent, respirations nonlabored. Clear to auscultation bilaterally, no rales, rhonchi, wheezing. CARDIOVASCULAR: Regular rate and rhythm without murmurs, rubs, or gallops. ABDOMINAL: Normoactive bowel sounds. Soft, nontender, nondistended. No rebound tenderness or guarding. MUSCULOSKELETAL: Extremities are warm and well-perfused. Moves all extremities well. No edema. NEURO: Normal speech. No focal neurologic deficits. SKIN: Skin is warm and dry. No rashes. PSYCHIATRIC: Normal affect/mood. Course Vital Signs Vital signs: Vital Signs Temperature 97.8 F
[2022-07-16 15:29] LABS: D Dimer 0.39 ug/mL (<0.48)
[2022-07-16 16:33] VITALS: BP 145/70; PULSE 90; RESP 12; O2SAT 98
[2022-07-16 16:34] VITALS: O2SAT 98
[2022-07-16 17:06] LABS: NT Pro B Type Natriuretic Pept 48 pg/mL (19.9-100)
[2022-07-16 17:22] LABS: Influenza A QL RT-PCR Negative (Negative); Influenza B QL RT-PCR Negative (Negative); SARS-CoV-2 RNA PCR Negative
[2022-07-16 17:34] VITALS: BP 152/72; PULSE 78; RESP 12; O2SAT 98
== END 2022-07-16 17:35 | disposition home or self-care (01) ==
PROVIDERS: Emergency Medicine; Emergency Provider Physician Assistant; PCP Family Medicine
DX: R06.02 Shortness of breath (principal); Z20.822 Contact with and (suspected) exposure to COVID-19; I12.0 Hypertensive chronic kidney disease with stage 5 chronic kidney disease or end stage renal disease; N18.6 End stage renal disease
CPT/HCPCS: 36415; 71046; 80053; 83880; 85025; 85380; 87636; 93005; 99283

== ENCOUNTER 2024-07-04 08:32 | Outpatient (CLI) | payer MEDICARE, SELFPAY ==
--- NOTE | ~2024-07-04 | CT_ITS ---
EXAMINATION: CT chest abdomen pelvis wo con DATE: 07/04/2024 09:17 INDICATION: Lymphadenopathy. TECHNIQUE: Computed tomography (CT) of the chest, abdomen, and pelvis was performed without intraveno us contrast. Automated exposure control and iterative reconstruction technique were employed. The dos e-length product was 1796.09 mGy-cm. COMPARISON: CT abdomen pelvis 05/11/2022 FINDINGS: CHEST CT: The lungs demonstrate minimal atelectasis. No pleural effusion. The heart size is normal. There are c oronary artery calcifications. No pericardial effusion. There is ectasia of ascending aorta measuring 4.7 cm. There are no pathologically enlarged lymph nodes. There is mild chronic height loss of mult iple vertebral bodies. There is moderate thoracic spondylosis. ABDOMEN/PELVIS CT: There is diffuse hepatic steatosis. There are changes of cholecystectomy. The spleen, pancreas, adren al glands, and left kidney are normal. There is a 3.4 cm cyst in right kidney. There is an umbilical hernia containing fat. The prostate is mildly enlarged. There is a left inguinal hernia containing fa t. There are no dilated loops of bowel. The appendix is normal. There are no pathologically enlarged lymph nodes. There is no free intraperitoneal fluid. There is a total right hip arthroplasty. There i s severe lumbar spondylosis. IMPRESSION: 1. No lymphadenopathy. Reviewed, dictated and finalized at location B. IMPRESSION: 1. No lymphadenopathy.
--- OUTSIDE RECORDS SUMMARY | 2024-07-04 08:54 | XMS_ITS | Clinical Summary ---
Author Organization [facility] [employer] Address [address] [place] [address] Care Team Providers Care Distillery Miller Name Role Phone Elliscesar Michelle JARAD-FRENCH TUTOR Primary Care Provider + Source Comments [facility],non-owned Affiliates and Associated Physician Practices is amultiple site organization consisting of ambulatory clinics and hospital sitesin [place], [place], [place] and [place]. This disclosure is being madepursuant to the Care Everywhere program and may not contain all information available regarding this patient. Last updated 18.[facility] [employer] Allergies No known active allergies Medications * Be aware that medications may not be up to date on this document. Alwaysverify current medications with the patient. Medication Sig Dispensed Refills Start Date End Date Status atenolol (TENORMIN) 25 MG tablet Take 25 mg by mouth 2 times daily 09/02/2014 Active omeprazole (PRILOSEC) 20 MG capsule Take 20 mg by mouth as needed 10/16/2019 Active ferrous sulfate 325 (65 FE) MG tabletIndications: Iron Deficiency Anemia Take 1 tablet by mouth once daily Reasons: Anemia From Inadequate Iron in the Body 100 tablet 4 03/16/2020 Active neomycin-bacitraci n-polymyxin (NEOSPORIN) 400-5-5000 topical ointment Apply to affected area 3 times daily Affected area: opening of your urethra 30 g 2 03/16/2020 Active Additional Information Patient not taking.Reported on 04/09/2020 cephalexin (KEFLEX) 500 MG tablet Take 1 (one) tablet by mouth 2 times daily 14 tablet 06/25/2020 Active Active Problems Problem Noted Date Diagnosed Date Acute kidney injury 04/01/2020 Left lower quadrant abdominal pain 04/01/2020 Essential hypertension, benign 04/01/2020 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 Family History Medical History Relation Name Comments Emphysema Brother 2 Lung Cancer Father Breast Cancer after age 50 or unknown Mother X3 Relation Name Status Comments Brother 1 (Age 51) Brother 2 Father (Age 74) Mother (Age 72) Social History Tobacco Use Types Packs/Day Years Used Date Smoking Tobacco: Former Smokeless Tobacco: Never Tobacco Cessation:Counseling Given: Yes Alcohol Use Standard Drinks/Week Comments Not Currently 1.7 (1 standard drink = 0.6 oz p ure alcohol) Sex and Gender Information Value Date Recorded Sex Assigned at Not on file Gender Identity Not on file Sexual Orientation Not on file Last Filed Vital Signs Vital Sign Reading Time Taken Comments Blood Pressure 151/90 04/09/2020 10:46 AM HOTEL MAINTENANCE WORKER Pulse 74 04/09/2020 10:46 AM HOTEL MAINTENANCE WORKER Temperature 36.1 C (97 F) 04/09/2020 10:46 AM HOTEL MAINTENANCE WORKER Respiratory Rate 18 04/09/2020 10:4 6 AM HOTEL MAINTENANCE WORKER Oxygen Saturation 99% 04/09/2020 10: 46 AM HOTEL MAINTENANCE WORKER Inhaled Oxygen Concentration - - Weight 107.2 kg (236 lb 6.4 oz) 020 10:46 AM HOTEL MAINTENANCE WORKER Height 180.3 cm (5' 11 ) 04/09/2020 10: 46 AM HOTEL MAINTENANCE WORKER Body Mass Index 32.97 04/09/2020 10:46 AM HOTEL MAINTENANCE WORKER Plan of Treatment Health Maintenance Due Date Last Done Comments COLOGUARD (AGES 45-75) - COLON CA SCREENING [address] COLONOGRAPHY - COLON CA SCREENING 1960 FIT - COLON CA SCREENING 1960 FLEX SIG - COLON CA SCREENING 1958 LIPID TESTING 1958 DTAP/TDAP/TD VACCINES (1 - Tdap) 1977 PNEUMOCOCCAL VACCINE 50+ (1 of 1 - PCV) 2008 ZOSTER VACCINE (1 of 2) 2008 AAA SCREENING 2023 SCREENING FOR DIABETES 04/15/2023 0, 04/01/2020, 03/16/2020, Additional history exists COVID-19 VACCINE ( - 2023- season) 2023 INFLUENZA VACCINE (#1) 2023 0, 02/13/2020, 03/04/2018, Additional history exists DEPRESSION SCREENING 04/26/2024 COLONOSCOPY - COLON CA SCREENING 09/09/2028 09/09/2018 Colorectal Cancer Screening 09/09/2028 Respiratory Syncytial Virus (RSV) Vaccine Pt: or over 60 yrs (1 - 1-dose 75+ series) 2033 HEPATITIS C SCREENING Completed 03/12/2020, 020 HEPATITIS B VACCINE Aged Out No longe r eligible based on patient's age to complete this topic HIB VACCINE Aged Out No longer eligi ble based on patient's age to complete this topic HPV VACCINE Aged Out No longer eligi ble based on patient's age to complete this topic MENINGOCOCCAL (Group B) VACCINE Aged Out No longer eligible based on patient's age to complete this topic MENINGOCOCCAL VACCINE Aged Out No pravin ulysses eligible based on patient's age to complete this topic Medical Devices Implanted Type Area Model Maker Plastic Device Identifier Shelf Expiration Date Model / Serial / Lot Kit Nima Drflw Embosafe Chrnc Dlys Implanted:Qty: 1 on 03/07/2020 at [facility] [employer] 03/25/2022 [id number] / / [id number] Procedures Procedure Name Priority Date/Time Associated Diagnosis Comments RENAL FUNCTION PANEL Routine 04/15/2020 12:54 PM HOTEL MAINTENANCE WORKER Acute kidney injury (HCC) HEPATITIS C AB SCREEN RFLX NAAT QUANT Routine 03/12/2020 1:33 PM HOTEL MAINTENANCE WORKER from Last 3 Months or Most Recently Relevant to Health Maintenance Results * (ABNORMAL) RENAL FUNCTION PANEL (04/15/2020 12:54 PM HOTEL MAINTENANCE WORKER) Glucose 96 65 - 99 mg/dL [facility] Comment: Fasting reference interval BUN 58(H) 7 - 25 mg/dL [facility] Creatinine 7.29(H) 0.70 - 1.25 mg/dL [facility] Comment: For patients >49 years of age, the reference limit for Creatinine is approximately 13% higher for people identified as -[place]. eGFR by MDRD 7(L) > OR = 60 mL/min/1. 73m2 [facility] eGFR by MDRD 8(L) > OR = 60 mL/min/1. 73m2 [facility] BUN/Creatinine Ratio 8 6 - 22 (calc) [facility] Sodium 141 135 - 146 mmol/L [facility] Potassium 3.9 3.5 - 5.3 mmol/L [facility] Chloride 101 98 - 110 mmol/L [facility] CO2 28 20 - 32 mmol/L [facility] Calcium 9.6 8.6 - 10.3 mg/dL [facility] Phosphorus 5.8(H) 2.5 - 4.5 mg/dL [facility] Albumin 4.5 3.6 - 5.1 g/dL [facility] Comment: Test Performed at: [facility] [address] [place] [address] HAMLET LAU DO,MPH Blood BLOOD SPECIMEN / Unknown 04/15/2020 12:54 PM HOTEL MAINTENANCE WORKER 04/15/2020 12:56 PM HOTEL MAINTENANCE WORKER Jermaine Yost MD LAB - CHEMISTRY AYW SIDDIQUI Performing Organization Address City/[facility]/ZIP Co de Phone Number [facility] [address] [place] [phone] * HEPATITIS C AB SCREEN RFLX NAAT QUANT (03/12/2020 1:33 PM HOTEL MAINTENANCE WORKER) Hepatitis C Antibody Non-react viji Non-reac tive 03/12/2020 2:53 PM HOTEL MAINTENANCE WORKER [facility] Comment:Hepatitis C Antibody screen indicates no serologic evidence of past or current infection with Hepatitis C Virus. Patients with unexplained liver disease who are immunocompromised or suspected of having acute Hepatitis C infection may benefit from Nucleic Acid Test (ZAID) for Hepatitis C Viral RNA to confirm Hepatitis C status. Blood BLOOD SPECIMEN / Unknown Lab Venipuncture / Unknown 03/12/2020 1:33 PM HOTEL MAINTENANCE WORKER 03/12/2020 2:53 PM HOTEL MAINTENANCE WORKER Jose Garcia MD LAB - CHEMISTRY YAW SIDDIQUI [facility] [id number] [place] [address], [facility] [phone] from Last 3 Months or Most Recently Relevant to Health Maintenance Advance Directives * Full Code (Latest Code Status on File) Date Activated Date Inactivated Comments 03/04/2020 4:49 PM 03/16/2020 4:19 PM Care Teams Distillery Miller Relationship Specialty Start Date End Date Michelle Fabian APRN-FRENCH TUTOR [address] [phone] PCP - General 03/29/19
--- OUTSIDE RECORDS SUMMARY | 2024-07-04 08:54 | XMS_ITS | Clinical Summary ---
Author Organization [facility] Rashard Bhatti Address [address] [place] [address] Care Team Providers Care Sludge Filtration Operator Name Role Phone Michelle Fabian Primary Care Provider [phone] Allergies No known active allergies Medications atenoloL (TENORMIN) 25 mg tablet Take by mouth 2 times daily. 9 Active omeprazole (PriLOSEC) 20 mg Capsule, Delayed Release(E.C.) Take by mouth. 9 Active pravastatin (PRAVACHOL) 20 mg tablet pravastatin 20 mg tablet Active azithromycin (ZITHROMAX) 250 mg tablet 3 Active predniSONE (DELTASONE) 10 mg tablet 3 Active benzonatate (TESSALON) 200 mg capsule every 8 hours. Acti ve Active Problems Problem Noted Date Diagnosed Date Lymphadenopathy, retroperitoneal 06/04/2021 Encounters Date Type Department Care Team Description 05/24/2024 External Device Data [facility] ABSTRACTION Provider, Abstract 05/18/2024 External Device Data [facility] ABSTRACTION Provider, Abstract from Last 3 Months Family History Medical History Relation Name Comments Prostate Cancer Brother 2 Colon Cancer Father Breast Cancer Mother Liver Disease Sister 1 Relation Name Status Comments Brother 1 Brother 2 Alive Daughter Alive Father Mother Sister 1 Sister 2 Alive Sister 3 Alive Son Alive Social History Tobacco Use Types Packs/Day Years Used Date Smoking Tobacco: Never Smokeless Tobacco: Never Tobacco Cessation:Counseling Given: Not Answered Alcohol Use Standard Drinks/Week Comments Never 0 (1 standard drink = 0.6 oz pur e alcohol) Sex and Gender Information Value Date Recorded Sex Assigned at Not on file Legal Sex Male 10:56 AM VALET PARKER Gender Identity Not on file Sexual Orientation Not on file Last Filed Vital Signs Vital Sign Reading Time Taken Comments Blood Pressure 158/78 05/18/2022 2:11 PM VALET PARKER Pulse 78 05/18/2022 2:08 PM VALET PARKER Temperature 36.4 C (97.6 F) 05/18/2022 2:08 PM VALET PARKER Respiratory Rate 16 05/18/2022 2:08 PM VALET PARKER Oxygen Saturation 96% 05/18/2022 2:08 PM VALET PARKER Inhaled Oxygen Concentration - - Weight 112.7 kg (248 lb 6.4 oz) 05/18/2022 2:08 PM VALET PARKER Height 180.3 cm (5' 11 ) 02/16/2022 11: 19 AM CDT Body Mass Index 34.64 02/16/2022 11:19 AM CDT Plan of Treatment Upcoming Encounters Date Type Department Care Team (Late st Contact Info) Description 07/11/2024 2:45 PM CDT Office Visit [facility] Oncology and Hematology [facility] [address] [facility] [facility] [address] [place] [address] Fito Guerra MD [address] [place] [address] Health Maintenance Due Date Last Done Comments Pre-Diabetes and Diabetes Screening 1958 COLORECTAL SCREENING 2003 Colorectal Cancer Screening 2003 FIT-DNA Q 3 years 2003 FIT/FOBT Q 1 year 2003 Flex Sig/CT Colonography Q 5 years 2003 PNEUMOCOCCAL VACCINE 50+ YEA RS (1 of 1 - PCV) 2008 ZOSTER VACCINE (1 of 2) 2008 RSV VACCINE (60+ or ) (1 - Risk 60-74 years 1-dose series) 2018 INFLUENZA VACCINE (#1) 2023 2, 02/11/2021, 02/25/2020, Additional history exists DTAP/TDAP/TD VACCINES (3 - T d or Tdap) 10/06/2025 10/07/2015, 12/04/2014 Insurance [facility] MEDICAID Care Teams Sludge Filtration Operator Relationship Specialty Start Date End Date Michelle Fabian ANP [address] [phone] PCP - General Nurse Practitioner Adult Health 06/04/21
--- OUTSIDE RECORDS SUMMARY | 2024-07-04 08:54 | XMS_ITS | Referral Summary ---
Author Organization [facility] [employer] Address [address] [facility] [place] [address] Care Team Providers Care Regulatory Compliance Coordinator Name Role Phone Elliscesar Michelle ABRAHAM-PHOTOGRAPHIC MACHINE OPERATOR Primary Care Provider + Source Comments [facility],non-owned Affiliates and Associated Physician Practices is amultiple site organization consisting of ambulatory clinics and hospital sitesin [place], [place], [place] and [place]. This disclosure is being madepursuant to the Care Everywhere program and may not contain all information available regarding this patient. Last updated 18.[facility] [employer] Allergies No known active allergies Medications * [...] with obstruction/lower urinary tract symptom s 03/04/2020 Social History Tobacco Use Types Packs/Day Years [...] Comments Blood Pressure 151/90 04/09/2020 10:46 AM ACCOUNT ADVISOR Pulse 74 04/09/2020 10:46 AM ACCOUNT ADVISOR Temperature 36.1 C (97 F) 04/09/2020 10:46 AM ACCOUNT ADVISOR Respiratory Rate 18 04/09/2020 10:4 6 AM ACCOUNT ADVISOR Oxygen Saturation 99% 04/09/2020 10: 46 AM ACCOUNT ADVISOR Inhaled Oxygen Concentration - - Weight 107.2 kg (236 lb 6.4 oz) 020 10:46 AM ACCOUNT ADVISOR Height 180.3 cm (5' 11 ) 04/09/2020 10: 46 AM ACCOUNT ADVISOR Body Mass Index 32.97 04/09/2020 10:46 AM ACCOUNT ADVISOR Functional Status Functional Status Response Date of Assess ment Is person deaf or have serious hearing difficult y? No 03/16/2020 Is person blind or have serious difficulty seein g? No 03/16/2020 Does person have serious dif ficulty walking/climbing stairs? No 03/16/2020 Does person have difficulty dressing/bathing? No 03/16/2020 Does person have difficulty doing errands alone? No 03/16/2020 Cognitive Status Response Date of Assessm ent Does person have difficulty concentrating/remembering/making decisions? No 03/16/2020 Plan of Treatment Not on file Medical Devices Implanted Type Area Manager Philosophy Device Identifier Shelf Expiration Date Model / Serial / Lot Kit Durathane Drflw Embosafe Chrnc Dlys Implanted:Qty: 1 on 03/07/2020 at [facility] [employer] 03/25/2022 [id number] / / [id number] Procedures Procedure Name Priority Date/Time Associated Diagnosis Comments RENAL FUNCTION PANEL Routine 04/15/2020 12:54 PM ACCOUNT ADVISOR Acute kidney injury (HCC) HEPATITIS C AB SCREEN RFLX NAAT QUANT Routine 03/12/2020 1:33 PM ACCOUNT ADVISOR from Last 3 Months or Most Recently Relevant to Health Maintenance Results * (ABNORMAL) RENAL FUNCTION PANEL (04/15/2020 12:54 PM ACCOUNT ADVISOR) Glucose 96 65 - 99 mg/dL [facility] Comment: Fasting reference interval BUN 58(H) 7 - 25 mg/dL [facility] Creatinine 7.29(H) 0.70 - 1.25 mg/dL [facility] Comment: For patients >49 years of age, the reference limit for Creatinine is approximately 13% higher for people identified as -Macedonian. eGFR by MDRD 7(L) > OR = [...] 5.1 g/dL [facility] Comment: Test Performed at: [facility] [address] [place] [address] HAMLET LAU DO,MPH Blood BLOOD SPECIMEN / Unknown 04/15/2020 12:54 PM ACCOUNT ADVISOR 04/15/2020 12:56 PM ACCOUNT ADVISOR Jermaine Yost MD LAB - CHEMISTRY ORDE [facility] [address] [place] [address] * HEPATITIS C AB SCREEN RFLX NAAT QUANT (03/12/2020 1:33 PM ACCOUNT ADVISOR) Hepatitis C Antibody Non-react viji Non-reac tive 03/12/2020 2:53 PM ACCOUNT ADVISOR [facility] Comment:Hepatitis C Antibody screen indicates [...] Lab Venipuncture / Unknown 03/12/2020 1:33 PM ACCOUNT ADVISOR 03/12/2020 2:53 PM ACCOUNT ADVISOR Jose Garcia MD LAB - CHEMISTRY YAW [facility] [address] [place] [address], [facility] [phone] from Last 3 Months or Most Recently Relevant to Health Maintenance Advance Directives * Full Code (Latest Code Status on File) Date Activated Date Inactivated Comments 03/04/2020 4:49 PM 03/16/2020 4:19 PM Care Teams Regulatory Compliance Coordinator Relationship Specialty Start Date End Date Michelle Fabian APRN-MIHAI [address] [phone] PCP - General 03/29/19
--- OUTSIDE RECORDS SUMMARY | 2024-07-04 08:54 | XMS_ITS | Clinical Summary ---
Author Organization [facility] Address [address] [place] [address] Care Team Providers Care Insulation Mechanic Name Role Phone Andre Rosales MD Unavailable [phone] Foster Padilla MD Primary Care Provider [phone] Allergies No known active allergies Medications atenoloL (TENORMIN) 25 mg tabletIndicatio ns:hypertension Take 25 mg by mouth 2 (two) times a day 0 Active pravastatin (PRAVACHOL) 20 mg tablet 2 Active losartan (COZAAR) 25 mg tablet TAKE 1 TABLET BY MOUTH 1 TIME EACH DAY. 2 Active omeprazole (PriLOSEC) 20 mg capsule Take by mouth daily 9 Active fluticasone propionate (FLONASE) 50 mcg/actuation nasal spray Administer 2 sprays into each nostril daily 3 Active fluorouraciL (EFUDEX) 5 % cream Apply once daily to pre-cancers for 2-3 weeks 40 g 1 3 Active Active Problems Problem Noted Date Diagnosed Date Chronic midline thoracic back pain 08/07/2021 CKD (chronic kidney disease) stage 4, GFR 15-29 ml/min 11/01/2020 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 urethral s tricture 08/21/2020 Overview (08/21/2020): Added automatically from request for surgery [id number] Lower urinary tract symptoms (LUTS) 07/24/2020 Stricture of anterior urethra in male 07/24/2020 Immunizations Immunization Administration Dates Next Due Influenza, Quadrivalent, Split, Intramuscular Influenza, Trivalent, IM (MDV) 02/25/2020 Surgical History Surgery Date Site/Laterality Comments TRANSURETHRAL RESECTION OF PROSTATE 03/04/2020 BACK SURGERY KNEE SURGERY CHOLECYSTECTOMY COLONOSCOPY TOTAL HIP ARTHROPLASTY Right PROSTATE BIOPSY 02/16/2020 OTHER SURGICAL HISTORY 07/14/2020 IR Central Line Removal Medical History Medical History Date Comments Skin cancer Hypertension Chronic kidney disease Delayed emergence from gener al anesthesia 2017 Slow to wake up after Spine surgery (L4-L5) at [facility] Postoperative delirium 02/2020 Wild act ing waking up from anesthesia given for TURP (SLU) Family History Medical History Relation Name Comments Alcohol abuse Father Family history of alcoholism - (Added by TW Conv) Cancer Father Family history of malignant neoplasm - (Added by TW Conv) Breast cancer Mother Cancer Mother Family history of malignant neoplasm - (Added by TW Conv) Hypertension Mother Family history of hypertension - (Added by TW Conv) Kidney disease Mother Family histor y of kidney disease - (Added by TW Conv) Relation Name Status Comments Father Mother Social History Tobacco Use Types Packs/Day Years Used Date Smoking Tobacco: Former Cigarettes Q uit: 09/05/1980 Smokeless Tobacco: Never Alcohol Use Standard Drinks/Week Comments Not Currently 0 (1 standard drink = 0.6 oz pur e alcohol) Very Rare AUDIT-C Answer Date Recorded Q1: How often do you have a drink containing alc ohol? 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 Gender Identity Not on file Sexual Orientation Not on file Obstetrics History Last Filed Vital Signs Vital Sign Reading Time Taken Comments Blood Pressure 128/79 08/07/2021 9:59 AM CDT Pulse 59 08/07/2021 9:59 AM CDT Temperature 36.3 C (97.4 F) 09/18/2020 9:00 AM CDT Respiratory Rate 12 09/10/2020 2:30 PM CDT Oxygen Saturation 97% 09/10/2020 2:30 PM CDT Inhaled Oxygen Concentration - - Weight 108.9 kg (240 lb) 08/04/2022 9:44 AM CDT Height 180.3 cm (5' 11 ) 08/04/2022 9:44 AM CDT Body Mass Index 33.47 08/04/2022 9:44 AM CDT Plan of Treatment Health Maintenance Due Date Last Done Comments Colon Cancer Screening-Colonoscopy 1960 Depression Screening 1960 Hepatitis C Screening 1960 DTaP/Tdap/Td Vaccine (1 - Tdap) 1969 Hepatitis B Screening 1976 Pneumococcal vaccine 65+ (1 of 1 - PCV) 2008 Zoster Vaccine (1 of 2) 2008 Fall Risk Assessment 09/10/2021 09/10/2020 Abdominal Aortic Aneurysm (A AA) Screen 2023 09/08/2012 Well Visit 65+ 2023 Influenza Vaccine (#1) 2023 2, 02/11/2021, 02/25/2020, Additional history exists Prostate Cancer Screening-PSA 08/27/2024 08/27/2022, 05/06/2020 Procedures Procedure Name Priority Date/Time Associated Diagnosis Comments PSA SCREEN Routine 08/27/2022 9:[address] ABDOMEN W CONTRAST Routine 09/08/2012 3:30 PM CDT from Last 3 Months or Most Recently Relevant to Health Maintenance Results * PSA screen (08/27/2022 9:42 AM CDT) PSA 0.77 < OR = 4.00 ng/mL [facility] Comment: The total PSA value from this assay system is standardized against the WHO standard. The test result will be approximately 20% lower when compared to the equimolar-standardized total PSA ([place]). Comparison of serial PSA results should be interpreted with this fact in mind. This test was performed using the Siemens chemiluminescent method. Values obtained from different assay methods cannot be used interchangeably. PSA levels, regardless of value, should not be interpreted as absolute evidence of the presence or absence of disease. 08/27/2022 9:42 AM CDT 08/27/2022 9:43 AM CDT Jose Gusman MD LAB BLOOD ORDERABLES Final Resul t [facility] [employer] [facility] [address] [place] [phone] * CT Abdomen W Contrast (09/08/2012 3:30 PM CDT) Anatomical Region Laterality Modality Body N/A Computed Tomogra phy 09/08/2012 3:30 PM CDT Narrative 09/10/2012 1:59 PM CDT EXAMINATION: CT CHEST AND ABDOMEN WITH CONTRAST HISTORY: Right-sided chest pain. Abdominal pain. Status post cholecystectomy January 05, 2012. TECHNIQUE: Contrast enhanced helical CT of the chest and abdomen was performed. 100 mL of Omnipaque-350 was administered uneventfully via the right antecubital vein. COMPARISON: None available CT CHEST FINDINGS: Support Devices: None. Heart/Pericardium/Great Vessels: Cardiac size is normal. There is no pericardial effusion. The great vessels of the chest are normal in caliber. Pleural Spaces: The pleural spaces are clear. Mediastinum/Promise: There is no mediastinal or hilar lymph node enlargement. Neck Base/Chest Wall/Diaphragm: There is no supraclavicular or axillary lymph node enlargement. Mild degenerative spondylosis is present in the spine. Lungs/Central Airways: The central airways are patent. Minimal dependent atelectasis is present in the lung bases. There is no evidence of focal consolidation, mass or pneumothorax. CT ABDOMEN FINDINGS: Liver/Gallbladder/Bile Ducts: No focal liver lesions are identified. There is diffuse hepatic hypoattenuation compatible with hepatic steatosis. The gallbladder is surgically absent. There is no bile duct dilatation. Spleen/Pancreas/Kidneys/Adrenal Glands: The spleen, pancreas, kidneys, and adrenal glands are normal. A sub-centimeter cyst is seen off the inferior pole of the right kidney exophytically. Vasculature: Calcific aortoiliac atherosclerosis is present. Lymph Nodes/Peritoneum/Mesentery/Omentum: There is no upper abdominal free fluid, free air, or lymph node enlargement. Stomach and Bowel: There are no dilated small bowel loops to suggest small bowel obstruction. Body Wall: Degenerative disc disease is present in the spine. Support Devices: None. COMBINED CONCLUSIONS: 1. No acute findings identified within the chest or abdomen to suggest etiology at the patient's abdominal pain. 2. Diffuse hepatic steatosis. 3. Cholecystectomy. THIS IS AN ELECTRONICALLY VERIFIED REPORT 09/10/2012 1:52 PM: Kenyon Suero M.D. Kenyon Suero M.D. JA:merna D: 01:33 PM [EOD] Procedure Note Provider, MD Baldo - 09/09/2020 EXAMINATION: CT CHEST AND ABDOMEN WITH CONTRAST HISTORY: Right-sided chest pain. Abdominal pain. Status post cholecystectomy January 05, 2012. TECHNIQUE: Contrast enhanced helical CT of the chest and abdomen was performed. 100 mL of Omnipaque-350 was administered uneventfully via theright antecubital vein. COMPARISON: None available CT CHEST FINDINGS: Support Devices: None. Heart/Pericardium/Great Vessels: Cardiac size is normal. There is no pericardial effusion. The great vessels of the chest are normal incaliber. Pleural Spaces: The pleural spaces are clear. Mediastinum/Promise: There is no mediastinal or hilar lymph nodeenlargement. Neck Base/Chest Wall/Diaphragm: There is no supraclavicular or axillarylymph node enlargement. Mild degenerative spondylosis is present in the spine. Lungs/Central Airways: The central airways are patent. Minimal dependent atelectasis is present in the lung bases. There is no evidence of focal consolidation, mass or pneumothorax. CT ABDOMEN FINDINGS: Liver/Gallbladder/Bile Ducts: No focal liver lesions are identified.There is diffuse hepatic hypoattenuation compatible with hepatic steatosis. The gallbladder is surgically absent. There is no bile duct dilatation. Spleen/Pancreas/Kidneys/Adrenal Glands: The spleen, pancreas, kidneys,and adrenal glands are normal. A sub-centimeter cyst is seen off the inferiorpole of the right kidney exophytically. Vasculature: Calcific aortoiliac atherosclerosis is present. Lymph Nodes/Peritoneum/Mesentery/Omentum: There is no upper abdominalfree fluid, free air, or lymph node enlargement. Stomach and Bowel: There are no dilated small bowel loops to suggestsmall bowel obstruction. Body Wall: Degenerative disc disease is present in the spine. Support Devices: None. COMBINED CONCLUSIONS: 1. No acute findings identified within the chest or abdomen to suggest etiology at the patient's abdominal pain. 2. Diffuse hepatic steatosis. 3. Cholecystectomy. THIS IS AN ELECTRONICALLY VERIFIED REPORT 09/10/2012 1:52 PM: Kenyon Suero M.D. Kenyon Suero M.D. JA:merna D: 01:33 PM [EOD] Stacey Kimble MD IMG CT PROCEDURES Final Result from Last 3 Months or Most Recently Relevant to Health Maintenance Insurance [facility] Care Teams Insulation Mechanic Relationship Specialty Start Date End Date Foster Padilla MD [address] [facility] [place] [place] [address] PCP - General Family Medicine 04/29/22 Andre Rosales MD Referring Physician Nephrology 05/06/20
--- OUTSIDE RECORDS SUMMARY | 2024-07-04 08:54 | XMS_ITS | CONTINUITY OF CARE DOCUMENT ---
Author Name ilan talavera Address Unknown Organization [facility] Address [address] [place] [address] Phone [phone] Care Team Providers Care Director Consumer Affairs Name Role Phone Waldo Caicedo MD Unavailable [phone] JAMAR HOOPER Unavailable [phone] JAMAR HOOPER Unavailable PROBLEMS Condition Status Date Provider Notes Cardiology examination active Waldo Caicedo MD Family History of Hypertension: active Emilia Caicedo MD Palpitations active Waldo Caicedo MD PAT active Waldo Caicedo MD ENCOUNTERS Date Type Provider Location Encounter Diag nosis - In-person encounter Office Visit Waldo Caicedo MD [place] [facility] - In-person encounter Office Visit Waldo Caicedo MD [place] [facility] Cardiology examinationFamily History of Hypertension:Palpitation sPAT VITAL SIGNS Date Observation Value Provider Body Mass Index (Ratio) 35.87 kg/m2 Emilia Caicedo MD blood pressure, resting No Calvin a Caitlin blood pressure, diastolic 78 mm[Hg] Er ica Caitlin blood pressure, systolic 130 mm[Hg] Rachel ca Caitlin oxygen saturation, oximetry 97 % Maegan Tucker pulse rate 69 /min Maegan Mcknight weight E&M 250 [lb_av] Maegan Mcknight height E&M 70 [in_i] Maegan Mcknight Body Mass Index (Ratio) 35.44 kg/m2 Emilia Caicedo MD blood pressure, cuff size regular Cy maricel Osuna blood pressure, diastolic 82 mm[Hg] Bill connelly Osuna blood pressure, systolic 134 mm[Hg] Gilma Osuna oxygen saturation, oximetry 97 % Destiny Osuna respiratory rate E&M 16 /min Destiny Osuna pulse rate 74 /min Destinybaudilio Crockerbe martinez height E&M 70 [in_i] Destinydavid martinez weight E&M 247 [lb_av] Destiny martinez ALLERGIES No Known Drug Allergies HISTORY OF MEDICATION USE Medication Status Instructions Dates Provider Indications Com ments OMEPRAZOLE 20 MG ORAL CAPSULE DELAYED RELEASE active take 1 cap daily Destiny Osuna GABAPENTIN 300 MG ORAL CAPSULE active take 1 tab three times daily Destiny Osuna DICLOFENAC SODIUM 75 MG ORAL TABLET DELAYED RELEASE active take 1 tab twice a day as needed Destiny Osuna ATENOLOL 25 MG ORAL TABLET active take 1 tab twice a day Destiny Osuna SOCIAL HISTORY Date Observation Value Provider social history E&M S moking History: Francisca gallagher has never smoked. Waldo Caicedo MD smoking status Never smoker Maegan King social history reviewed E&M revi ewed - no changes required Maegan Tucker number of grandchildren Waldo Caicdeo MD U laila Caicedo MD drug use, illicit, d rug of choice marijuana Waldo Caicedo MD drug use yes Waldo Caicedo MD alcohol use, average drinks per day social Waldo Caicedo MD alcohol use yes Waldo Caicedo MD social history E&M S moking History: Francisca gallagher has never smoked. Waldo Caicedo MD social history reviewed E&M revi ewed - no changes required Waldo Caicedo MD smoking status Never smoker Destiny flores FAMILY HISTORY Family Member Condition Mother Family History of Hy pertension: INSURANCE PROVIDERS Payer name Policy type / Coverage type [employer]ad red green party ID [employer] MEDICAID (2) Medicaid [id number] ADVANCE DIRECTIVES Name Date POWER OF [employer] CONSULTANT TREATMENT PLAN Date Name Performer Cardiology:Continue atenolol. Us odalis Caicedo MD Cardiology:32 short runs of AT noted on 48 Hr Holter monitor 12/2018. Continue atenolol. Will repeat 48 hour Holter prior to next visit. Waldo Caicedo MD Cardiology New Patient : above . Waldo Caicedo MD Cardiology New Patie nt :32 short runs of AT noted on 48 Hr Holter monitor 12/2018. Is already on atenolol 25 mg BID and see if that reduces the number of SVE's. Will also check an echo. Waldo Caicedo MD Date Name Holter Monitor 48 hr Complete Echo HISTORY OF PROCEDURES Procedure Date Procedure Name Provider Procedure Notes S tatus EKG Waldo Caicedo MD completed
--- OUTSIDE RECORDS SUMMARY | 2024-07-04 08:54 | XMS_ITS ---
Author Organization [facility] ([facility] Address [address] [place] [address] Care Team Providers Care Stationary Engineer Supervisor Name Role Phone Unavailable Unavailable Unavailable Allergies, Adverse Reactions, Alerts This patient has no known allergies or adverse reactions. Problems This patient has no known problems.
--- OUTSIDE RECORDS SUMMARY | 2024-07-04 08:54 | XMS_ITS | Patient Health Summary ---
Author Organization [facility] Address [address] [place] [address] Care Team Providers Care Community Health Worker Name Role Phone Michelle Fabian JARAD-LINER REROLL TENDER Primary Care Provider + Note from [facility],non-owned Affiliates and Associated Physician Practices is amultiple site organization consisting of ambulatory clinics and hospital sitesin [place], [place], [place] and [place]. This disclosure is being madepursuant to the Care Everywhere program and may not contain all information available regarding this patient. Last updated 18.[facility] Allergies No known active allergies Medications * Be aware that medications may not be up to date on this document. Alwaysverify current medications with the patient. * atenolol (TENORMIN) 25 MG tablet(Started 09/02/2014) Take 25 mg by mouth 2 times daily * omeprazole (PRILOSEC) 20 MG capsule(Started 10/16/2019) Take 20 mg by mouth as needed * ferrous sulfate 325 (65 FE) MG tablet(Started 03/16/2020) Take 1 tablet by mouth once daily Reasons: Anemia From Inadequate Iron in the Body 4 refills by 03/16/2021 * mzxifmhu-pzdjrvlpcp-wejggjejl (NEOSPORIN) 400-5-5000 topical ointment(Started 03/16/2020) Apply to affected area 3 times daily Affected area: opening of your urethra 2 refills by 03/16/2021 * cephalexin (KEFLEX) 500 MG tablet(Started 06/25/2020) Take 1 (one) tablet by mouth 2 times daily Active Problems Problem Noted Date Diagnosed Date [...] Comments Blood Pressure 151/90 04/09/2020 10:46 AM GASKET FORMER Pulse 74 04/09/2020 10:46 AM GASKET FORMER Temperature 36.1 C (97 F) 04/09/2020 10:46 AM GASKET FORMER Respiratory Rate 18 04/09/2020 10:4 6 AM GASKET FORMER Oxygen Saturation 99% 04/09/2020 10: 46 AM GASKET FORMER Inhaled Oxygen Concentration - - Weight 107.2 kg (236 lb 6.4 oz) 020 10:46 AM GASKET FORMER Height 180.3 cm (5' 11 ) 04/09/2020 10: 46 AM GASKET FORMER Body Mass Index 32.97 04/09/2020 10:46 AM GASKET FORMER Medical Devices Implanted Type Area Library Acquisitions Technician Device Identifier Shelf Expiration Date Model / Serial / Lot Kit Durathane Drflw Embosafe Chrnc Dlys Implanted:Qty: 1 on 03/07/2020 at [facility] [employer] 03/25/2022 [id number] Procedures * IR CENTRAL LINE REMOVAL(Performed 06/25/2020) Performed for End stage renal disease (HCC) * RENAL FUNCTION PANEL(Performed 04/15/2020) Performed for Acute kidney injury (HCC) * LIPASE BLOOD(Performed 04/01/2020) * COMPREHENSIVE METABOLIC PANEL(Performed 04/01/2020) * CBC W AUTO DIFFERENTIAL(Performed 04/01/2020) * HIV-1 HIV-2 ANTIGEN/ANTIBODY(Performed 04/01/2020) * MAGNESIUM BLOOD(Performed 03/16/2020) * RENAL FUNCTION PANEL(Performed 03/16/2020) * CBC W/O DIFFERENTIAL(Performed 03/16/2020) Performed for BPH with obstruction/lower urinary tract symptoms * MAGNESIUM BLOOD(Performed 03/15/2020) * RENAL FUNCTION PANEL(Performed 03/15/2020) * CBC W/O DIFFERENTIAL(Performed 03/15/2020) Performed for BPH with obstruction/lower urinary tract symptoms * HEMODIALYSIS INPATIENT(Performed 03/14/2020) * RENAL FUNCTION PANEL(Performed 03/14/2020) * CBC W/O DIFFERENTIAL(Performed 03/14/2020) Performed for BPH with obstruction/lower urinary tract symptoms * ALBUMIN BLOOD(Performed 03/13/2020) * URIC ACID BLOOD(Performed 03/13/2020) * CK BLOOD(Performed 03/13/2020) * PHOSPHORUS BLOOD(Performed 03/13/2020) * FOLATE(Performed 03/13/2020) * VITAMIN B12(Performed 03/13/2020) * TRANSFERRIN(Performed 03/13/2020) * FERRITIN(Performed 03/13/2020) * IRON BLOOD(Performed 03/13/2020) * CBC W/O DIFFERENTIAL(Performed 03/13/2020) Performed for BPH with obstruction/lower urinary tract symptoms * BASIC METABOLIC PANEL (CALCIUM TOTAL)(Performed 03/13/2020) Performed for BPH with obstruction/lower urinary tract symptoms * HEMODIALYSIS INPATIENT(Performed 03/12/2020) * XR CHEST 2VW(Performed 03/12/2020) Performed for Dependence on renal dialysis (HCC) * HEPATITIS B CORE ANTIBODY TOTAL(Performed 03/12/2020) * HEPATITIS B CORE ANTIBODY IGM(Performed 03/12/2020) * HEPATITIS B SURFACE ANTIGEN W RFLX CONFIRMATION(Performed 03/12/2020) * HEPATITIS B SURFACE ANTIBODY(Performed 03/12/2020) * HEPATITIS C RNA QUANTITATIVE(Performed 03/12/2020) * HEPATITIS C AB SCREEN RFLX NAAT QUANT(Performed 03/12/2020) * PT EVAL AND TREAT(Performed 03/12/2020) * OT EVAL AND TREAT(Performed 03/12/2020) * CBC W/O DIFFERENTIAL(Performed 03/12/2020) Performed for BPH with obstruction/lower urinary tract symptoms * BASIC METABOLIC PANEL (CALCIUM TOTAL)(Performed 03/12/2020) Performed for BPH with obstruction/lower urinary tract symptoms * CBC W/O DIFFERENTIAL(Performed 03/11/2020) Performed for BPH with obstruction/lower urinary tract symptoms * BASIC METABOLIC PANEL (CALCIUM TOTAL)(Performed 03/11/2020) Performed for BPH with obstruction/lower urinary tract symptoms * HEMODIALYSIS INPATIENT(Performed 03/10/2020) * CBC W/O DIFFERENTIAL(Performed 03/10/2020) Performed for BPH with obstruction/lower urinary tract symptoms * BASIC METABOLIC PANEL (CALCIUM TOTAL)(Performed 03/10/2020) Performed for BPH with obstruction/lower urinary tract symptoms * CBC W/O DIFFERENTIAL(Performed 03/09/2020) Performed for BPH with obstruction/lower urinary tract symptoms * BASIC METABOLIC PANEL (CALCIUM TOTAL)(Performed 03/09/2020) Performed for BPH with obstruction/lower urinary tract symptoms * HEMODIALYSIS INPATIENT(Performed 03/08/2020) * GLUCOSE - POINT OF CARE(Performed 03/08/2020) * HEMODIALYSIS INPATIENT(Performed 03/08/2020) * HEMODIALYSIS INPATIENT(Performed 03/08/2020) * CBC W/O DIFFERENTIAL(Performed 03/08/2020) Performed for BPH with obstruction/lower urinary tract symptoms * BASIC METABOLIC PANEL (CALCIUM TOTAL)(Performed 03/08/2020) Performed for BPH with obstruction/lower urinary tract symptoms * HEPATITIS B SURFACE ANTIBODY QUANT(Performed 03/07/2020) * HEPATITIS B SURFACE ANTIGEN W RFLX CONFIRMATION(Performed 03/07/2020) * IR CENTRAL LINE INSERT TUNNEL(Performed 03/07/2020) Performed for Acute kidney injury (HCC) * CK BLOOD(Performed 03/07/2020) * US KIDNEY WITH DOPPLER(Performed 03/07/2020) Performed for Acute kidney injury (HCC) * HEMODIALYSIS INPATIENT(Performed 03/07/2020) * CBC W/O DIFFERENTIAL(Performed 03/07/2020) Performed for BPH with obstruction/lower urinary tract symptoms * BASIC METABOLIC PANEL (CALCIUM TOTAL)(Performed 03/07/2020) Performed for BPH with obstruction/lower urinary tract symptoms * OSMOLALITY URINE(Performed 03/06/2020) * POTASSIUM URINE RANDOM(Performed 03/06/2020) Performed for Acute kidney injury (HCC) * SODIUM URINE RANDOM(Performed 03/06/2020) Performed for Acute kidney injury (HCC) * CREATININE URINE RANDOM(Performed 03/06/2020) Performed for Acute kidney injury (HCC) * UREA NITROGEN URINE RANDOM(Performed 03/06/2020) Performed for Creatinine elevation * CULTURE URINE(Performed 03/06/2020) * CT CYSTOGRAM(Performed 03/06/2020) Performed for Creatinine elevation * CT ABDOMEN PELVIS WO CONTRAST(Performed 03/06/2020) Performed for BPH with obstruction/lower urinary tract symptoms, Creatinine elevation, Acute kidneyinjury (HCC) * CREATININE URINE RANDOM(Performed 03/06/2020) Performed for Creatinine elevation * SODIUM URINE RANDOM(Performed 03/06/2020) Performed for Creatinine elevation * BASIC METABOLIC PANEL (CALCIUM TOTAL)(Performed 03/06/2020) Performed for Creatinine elevation * CBC W/O DIFFERENTIAL(Performed 03/06/2020) Performed for BPH with obstruction/lower urinary tract symptoms * BASIC METABOLIC PANEL (CALCIUM TOTAL)(Performed 03/06/2020) Performed for BPH with obstruction/lower urinary tract symptoms * US RETROPERITONEAL COMPLETE(Performed 03/05/2020) Performed for Creatinine elevation * BASIC METABOLIC PANEL (CALCIUM TOTAL)(Performed 03/05/2020) Performed for BPH with obstruction/lower urinary tract symptoms * CBC W/O DIFFERENTIAL(Performed 03/05/2020) Performed for BPH with obstruction/lower urinary tract symptoms * CBC W/O DIFFERENTIAL(Performed 03/05/2020) Performed for BPH with obstruction/lower urinary tract symptoms * BASIC METABOLIC PANEL (CALCIUM TOTAL)(Performed 03/05/2020) Performed for BPH with obstruction/lower urinary tract symptoms * POTASSIUM WHOLE BLD(Performed 03/04/2020) Performed for BPH with obstruction/lower urinary tract symptoms * BASIC METABOLIC PANEL (CALCIUM TOTAL)(Performed 03/04/2020) Performed for BPH with obstruction/lower urinary tract symptoms * PATHOLOGY TISSUE(Performed 03/04/2020) Performed for BPH with obstruction/lower urinary tract symptoms * DIFFERENTIAL MANUAL(Performed 03/04/2020) * CBC W AUTO DIFFERENTIAL(Performed 03/04/2020) * TRANSURETHRAL RESECTION PROSTATE (TURP)(Performed 03/04/2020) Performed for BPH with obstruction/lower urinary tract symptoms * AR CYSTOURETHROSCOPY(Performed 03/04/2020) Performed for BPH with obstruction/lower urinary tract symptoms * ENDOTRACHEAL TUBE NOTE(Performed 03/04/2020) * SARS-COV-2 (COVID-19) IN HOUSE(Performed 03/01/2020) Performed for Pre-op testing * CULTURE URINE(Performed 02/17/2020) * AR US GUIDED NEEDLE PLACEMENT(Performed 02/16/2020) Performed for Elevated PSA * AR BIOPSY OF PROSTATE,NEEDLE/PUNCH(Performed 02/16/2020) Performed for Elevated PSA * PATHOLOGY TISSUE(Performed 02/16/2020) Performed for Elevated PSA * URINALYSIS AUTO - POINT OF CARE (AMB) [facility]U(Performed 02/16/2020) Performed for Elevated PSA * MRI PELVIS RECTAL PROTOCOL WWO CONT(Performed 01/21/2020) Performed for Elevated PSA * CREATININE - POCT INTERFACED(Performed 01/21/2020) * LAB RESULTS ORDER(Performed 11/24/2019) * LAB RESULTS ORDER(Performed 11/22/2019) * LAB RESULTS ORDER(Performed 11/10/2019) * AR CYSTOURETHROSCOPY(Performed 11/06/2019) Performed for Benign prostatic hyperplasia without lower urinary tract symptoms * CULTURE URINE(Performed 11/01/2019) Performed for Benign prostatic hyperplasia without lower urinary tract symptoms * URINALYSIS AUTO - POINT OF CARE (AMB) [facility](Performed 11/01/2019) Performed for Benign prostatic hyperplasia without lower urinary tract symptoms * URINALYSIS AUTO - POINT OF CARE (AMB) [facility](Performed 10/17/2019) Performed for Benign prostatic hyperplasia without lower urinary tract symptoms * STREP A SCREEN - POINT OF CARE (AMB) [facility](Performed 06/25/2019) Performed for Upper respiratory tract infection, unspecified type * AR MSR PVR U&/BLADD CAPCTY US NON(Performed 03/31/2019) Performed for Benign prostatic hyperplasia with weak urinary stream * URINALYSIS AUTO - POINT OF CARE (AMB) [facility](Performed 03/30/2019) Performed for Benign prostatic hyperplasia with weak urinary stream * DERMATOPATHOLOGY(Performed 01/27/2012) Results * IR CENTRAL LINE REMOVAL (06/25/2020 11:34 AM GASKET FORMER) Anatomical Region Laterality Modality X-Ray Angiograph y Narrative 06/25/2020 6:30 PM GASKET FORMER Gibson Cancino MD 06/25/2020 6:48 PM Junior Palm II [id number] Interventional Nephrology Procedure Date: 06/25/2020 Attending Surgeon and performing the procedure: Gibson Cancino MD Brief history and physical and medical indication for the procedure: This is a 60-year-old man with acute kidney injury secondary to obstructive kidney disease status post TURP. The patient was renal replacement therapy dependent and was dialyzing through a right internal jugular vein tunneled dialysis catheter. EXAM: There were no vitals taken for this visit. General appearance: alert, cooperative, no distress Chest: As the patient has a 19 cm tip to cuff, Duraflow hemodialysis catheter. The exit site is in the subclavicular space along the right midclavicular line. The tunnel is nontender, the exit site is without drainage or erythema. Heart: Regular rate, normal S1 and S2, without murmurs Lungs: breath sounds normal and symmetric; no wheezes Extremities: no cyanosis or edema Indications for the procedure: 1. Acute kidney injury is resolved is on CKD. Procedures Performed: 1. CATHETER PLACEMENT: REMOVAL OF TUNNELED CENTRALLY INSERTED CVC; 79246 2. ANGIOGRAPHIC PROCEDURES: VASCULAR MAPPING OF THE UPPER EXTREMITY FOR HEMODIALYSIS ACCESS; 16606 Findings: 1. A 19 cm tip to cuff glide path catheter was recovered in its entirety and intact. 2. See detailed description of the vascular mapping using ultrasound with rosas scale and color below. Description of the procedure: After informed consent was obtained the patient was placed in the supine position. Prior to beginning the procedure, universal protocol and time-out were performed to confirm the patient's identity and the planned procedure. Maximum sterile barriers including cap, mask, hand hygiene, sterile gloves, sterile gown, large sterile drape, sterile gel, sterile ultrasound probe cover, and 2% chlorhexidine for cutaneous antisepsis were used.The chest, neck, and catheter were prepared with chlorhexadine and draped in appropriate sterile fashion. The cuff was located by palpation. The exit site and tunnel tract up to the cuff were infiltrated with 1% lidocaine. Blunt dissection was used to release the cuff from the fibrous sheath and the catheter was removed. Pressure was applied for 5 min over the right internal jugular vein venotomy and hemostasis obtained. Mr. Junior Palm II tolerated the procedure well with 1% lidacaine for local anesthesia. EXAMINATION: Attention was turned to the left upper extremity vein mapping Date: 06/25/2020 History: Junior Palm II is a 60 year old male with history of acute kidney injury due to obstructive nephropathy on CKD. The patient's precision honer is Dr. Andre Rosales MD. Technique: Limited grayscale, color, and spectral images of the left upper extremity vasculature were obtained for the purposes of endovascular arteriovenous fistula creation. Findings: Within the left upper arm, the cephalic vein diameter/depth measurements are 6.5 mm/4 mm proximally, 5.7 mm/5.4 mm within the midportion, and 8 mm/3.7 mm distally. The perforating vein extending from the cephalic vein is present and measures 4.8 mm in diameter. The perforating vein communicates with the deep venous system, has straight shot to the lateral radial vein. On the longitudinal view the radial artery below the perforating vein is 2.9 mm in diameter. A the left upper arm basilic in general the basilic vein appeared without stenosis and greater than 4 mm in diameter along the upper. The medial brachial vein at the mid upper arm he is very small in caliber. The lateral brachial vein at the mid upper arm measures 4.2 mm in diameter. The brachial artery diameter within the mid upper arm is 4.2 mm. The brachial artery bifurcates below the elbow and demonstrates a triphasic waveform. Flow volume within the brachial artery is 93 mL/min. At the target zone, the common ulnar arterial diameter is 5.4 mm. The medial ulnar vein is very small in caliber and the lateral ulnar vein diameter is 4.2 mm at the target zone. The the cephalic vein along the forearm measures 2.8 mm at the wrist and is 3.5 mm from the skin surface, at the snuffbox the cephalic vein measures 3.1 mm and; in the mid forearm it measures 3.1 mm history is/4.9 mm; in the proximal forearm the the cephalic vein measures 3.1 mm/4.1 mm. The radial artery measures at the wrist 3.4 mm at the snuffbox 2.4 mm. The ulnar artery measures 3.2 mm at the wrist. IMPRESSION: Limited left upper extremity vein mapping, as described above. This patient is a candidate for left upper extremity the reason for dialysis AV fistula creation with either technology Ellipsys or Wavelinq. However the patient is also good candidate for a distal radial artery cephalic vein AV fistula creation. PLAN: There is no indication for creation at this time. I discussed the findings with the patient have given him a wrist band in order to avoid any blood draws, blood pressure measurements, and IV lines along the left upper extremity. Zahraa Cancino M.D. Interventional Neprology [facility] [phone] Dr. Andre Rosales MD Andre Rosales MD IR ORDERABLES * (ABNORMAL) RENAL FUNCTION PANEL (04/15/2020 12:54 PM GASKET FORMER) Only the most recent of4 resultswithin the time period is included. Pathologist [facility] Glucose 96 65 - 99 mg/dL [facility] Comment: Fasting reference interval BUN 58(H) 7 - 25 mg/dL [facility] Creatinine 7.29(H) 0.70 - 1.25 mg/dL [facility] Comment: For patients >49 years of age, the reference limit for Creatinine is approximately 13% higher for people identified as -Peruvian. eGFR by MDRD 7(L) > OR = [...] 5.1 g/dL [facility] Comment: Test Performed at: [facility] [address] [place] [address] HAMLET LAU DO,MPH Blood BLOOD SPECIMEN / Unknown 04/15/2020 12:54 PM GASKET FORMER 04/15/2020 12:56 PM GASKET FORMER Jermaine Yost MD LAB - CHEMISTRY YAW S[facility]DI[facility] [address] [place] [address] * HIV-1 HIV-2 ANTIGEN/ANTIBODY (04/01/2020 1:10 PM GASKET FORMER) [facility] HIV Antigen/Antibod y 1 & 2 Non-reacti ve Non-react viji 04/01/2020 2:11 PM [facility] Comment:Neither HIV-1 p24 An tigen nor HIV-1/HIV-2 Antibodies are detected. Blood BLOOD SPECIMEN / Unknown Venipuncture / Unknown 04/01/2020 1:10 PM GASKET FORMER 04/01/2020 1:20 PM GASKET FORMER Matt Eng MD LAB - HEMATOLOGY ORD ERABLES [facility] [address] [place] [address], [facility] [phone] * (ABNORMAL) CBC W AUTO DIFFERENTIAL (04/01/2020 1:10 PM GASKET FORMER) Only the most recent of2 resultswithin the time period is included. WBC 9.4 3.5 - 10.5 10 3/uL 04/01/2020 1:28 PM [facility] RBC 4.36 4.30 - 5.70 10 6/uL 04/01/2020 1:28 PM [facility] Hemoglobin 11.3(L) 13.5 - 17.5 g/dL 04/01/2020 1:28 PM [facility] Hematocrit 36.4(L) 39.0 - 50.0 % 04/01/2020 1:28 PM [facility] MCV 83.5 81.0 - 97.0 fL 04/01/2020 1:28 PM [facility] MCH 25.9(L) 28.0 - 34.0 pg 04/01/2020 1:28 PM [facility] MCHC 31.0(L) 32.0 - 36.0 g/dL 04/01/2020 1:28 PM [facility] Platelet Count 311 150 - 400 10 3/uL 04/01/2020 1:28 PM [facility] RDW-SD 45.9 36.0 - 50.0 fL 04/01/2020 1:28 PM [facility] RDW-CV 15.3(H) 11.2 - 14.8 % 04/01/2020 1:28 PM [facility] MPV 9.5 9.3 - 12.8 fL 04/01/2020 1:28 PM [facility] nRBC Absolute 0.00 0 10 3/uL 04/01/2020 1:28 PM [facility] nRBC Auto 0.0 0 /100 WBC 04/01/2020 1:28 PM [facility] Neutrophils % 67.2 35.0 - 70.0 % 04/01/2020 1:28 PM [facility] Lymphocytes % 18.1(L) 19.7 - 55.1 % 04/01/2020 1:28 PM [facility] Monocytes % 9.4 3.0 - 15.0 % 04/01/2020 1:28 PM [facility] Eosinophils % 3.8 0.0 - 6.0 % 04/01/2020 1:28 PM [facility] Basophil % 1.0 0.0 - 1.5 % 04/01/2020 1:28 PM [facility] Neutrophils Absolute 6.3 1.6 - 7.0 10 3/uL 04/01/2020 1:28 PM [facility] Lymphocyte Absolute 1.7 0.8 - 2.9 10 3/uL 04/01/2020 1:28 PM [facility] Monocytes Absolute 0.89(H) 0.14 - 0.66 10 3/uL 04/01/2020 1:28 PM [facility] Eosinophils Absolute 0.36 0.00 - 0.45 10 3/uL 04/01/2020 1:28 PM [facility] Basophils Absolute 0.09(H) 0.00 - 0.06 10 3/uL 04/01/2020 1:28 PM [facility] Immature Granulocytes % 0.5 0.0 - 1.0 % 04/01/2020 1:28 PM [facility] Blood BLOOD SPECIMEN / Unknown Venipuncture / Unknown 04/01/2020 1:10 PM GASKET FORMER 04/01/2020 1:20 PM GASKET FORMER Matt Eng MD LAB - HEMATOLOGY ORD ERABLES [facility] [address] [place] [address], [facility] [phone] * (ABNORMAL) COMPREHENSIVE METABOLIC PANEL (04/01/2020 1:10 PM GASKET FORMER) BUN 63(H) 7 - 26 mg/dL 04/01/2020 1:51 PM [facility] Creatinine 10.8(H) 0.6 - 1.2 mg/dL 04/01/2020 1:51 PM [facility] Sodium 141 136 - 145 mmol/L 04/01/2020 1:51 PM [facility] Potassium 4.4 3.5 - 4.5 mmol/L 04/01/2020 1:51 PM [facility] Chloride 102 98 - 107 mmol/L 04/01/2020 1:51 PM [facility] CO2 23 22 - 29 mmol/L 04/01/2020 1:51 PM [facility] Glucose 89 70 - 115 mg/dL 04/01/2020 1:51 PM [facility] Calcium 9.2 8.4 - 10.2 mg/dL 04/01/2020 1:51 PM [facility] Protein Total 8.0 6.0 - 8.3 g/dL 04/01/2020 1:51 PM [facility] Albumin 4.0 3.4 - 5.0 g/dL 04/01/2020 1:51 PM [facility] Bilirubin Total 0.4 0.2 - 1.2 mg/dL 04/01/2020 1:51 PM [facility] Alkaline Phosphatase 96 40 - 150 Units/L 04/01/2020 1:51 PM [facility] ALT 33 0 - 55 Units/L 04/01/2020 1:51 PM [facility] AST 18 5 - 34 Units/L 04/01/2020 1:51 PM [facility] Anion Gap 20(H) 8 - 18 04/01/2020 1:51 PM [facility] BUN/Creatinine Ratio 6(L) 7 - 23 04/01/2020 1:51 PM [facility] Osmolality Calculated 309(H) 270 - 300 mOsm/kg 04/01/2020 1:51 PM [facility] Albumin/Globulin Ratio 1.0(L) 1.1 - 2.3 04/01/2020 1:51 PM [facility] eGFR 5(L) >60 mL/min/1.7 3 m2 04/01/2020 1:51 PM [facility] Blood BLOOD SPECIMEN / Unknown Venipuncture / Unknown 04/01/2020 1:10 PM GASKET FORMER 04/01/2020 1:20 PM GASKET FORMER Matt Eng MD LAB - CHEMISTRY YAW SIDDIQUI [address] [address], [facility] [phone] * LIPASE BLOOD (04/01/2020 1:10 PM GASKET FORMER) Pathologist [facility] Lipase 38 8 - 78 Units/L 04/01/2020 1:51 PM [facility] Blood BLOOD SPECIMEN / Unknown Venipuncture / Unknown 04/01/2020 1:10 PM GASKET FORMER 04/01/2020 1:20 PM GASKET FORMER Matt Eng MD LAB - CHEMISTRY YAW SIDDIQUI Performing Organization Address [facility]/ZIP Co de Phone Number [address] [address], [facility] [phone] * (ABNORMAL) CBC W/O DIFFERENTIAL (03/16/2020 4:15 AM GASKET FORMER) Only the most recent of13 resultswithin the time period is included. [facility] WBC 10.3 3.5 - 10.5 10 3/uL 03/16/2020 5:44 AM [facility] RBC 4.00(L) 4.30 - 5.70 10 6/uL 03/16/2020 5:44 AM [facility] Hemoglobin 10.3(L) 13.5 - 17.5 g/dL 03/16/2020 5:44 AM [facility] Hematocrit 32.8(L) 39.0 - 50.0 % 03/16/2020 5:44 AM [facility] MCV 82.0 81.0 - 97.0 fL 03/16/2020 5:44 AM [facility] MCH 25.8(L) 28.0 - 34.0 pg 03/16/2020 5:44 AM [facility] MCHC 31.4(L) 32.0 - 36.0 g/dL 03/16/2020 5:44 AM [facility] Platelet Count 293 150 - 400 10 3/uL 03/16/2020 5:44 AM [facility] RDW-SD 46.6 36.0 - 50.0 fL 03/16/2020 5:44 AM [facility] RDW-CV 15.6(H) 11.2 - 14.8 % 03/16/2020 5:44 AM [facility] MPV 9.9 9.3 - 12.8 fL 03/16/2020 5:44 AM [facility] nRBC Absolute 0.00 0 10 3/uL 03/16/2020 5:44 AM [facility] nRBC Auto 0.0 0 /100 WBC 03/16/2020 5:44 AM [facility] Blood BLOOD SPECIMEN / Unknown Lab Venipuncture / Unknown 03/16/2020 4:15 AM GASKET FORMER 03/16/2020 5:36 AM GASKET FORMER Colton Nguyen MD LAB - HEMATOLOGY ORD ERABLES [address] [address], [place] [phone] * MAGNESIUM BLOOD (03/16/2020 4:15 AM GASKET FORMER) Only the most recent of2 resultswithin the time period is included. Magnesium 2.1 1.6 - 2.6 mg/dL 03/16/2020 6:06 AM [facility] Blood BLOOD SPECIMEN / Unknown Lab Venipuncture / Unknown 03/16/2020 4:15 AM GASKET FORMER 03/16/2020 5:36 AM GASKET FORMER Areli Dixon MD LAB - CHEMISTRY [facility]AW [facility]I [address] [address], [place] [phone] * (ABNORMAL) URIC ACID BLOOD (03/13/2020 5:11 AM GASKET FORMER) Uric Acid 8.0(H) 2.6 - 7.2 mg/dL 03/13/2020 6:07 AM [facility] Blood BLOOD SPECIMEN / Unknown Lab Venipuncture / Unknown 03/13/2020 5:11 AM GASKET FORMER 03/13/2020 5:33 AM GASKET FORMER Ladarius Mcmahon MD LAB - CHEMISTRY YAW SIDDIQUI Performing Organization Address City/[facility]/ZIP Co de Phone Number [facility] [address] [place] [address], [place] [phone] * (ABNORMAL) TRANSFERRIN (03/13/2020 5:11 AM GASKET FORMER) Transferrin 156(L) 174 - 382 mg/dL 03/13/2020 5:57 AM [facility] Transferrin Saturation % 19 16 - 50 % 03/13/2020 5:57 AM [facility] Blood BLOOD SPECIMEN / Unknown Lab Venipuncture / Unknown 03/13/2020 5:11 AM GASKET FORMER 03/13/2020 5:31 AM GASKET FORMER Ladarius Mcmahon MD LAB - CHEMISTRY YAW SIDDIQUI Performing Organization Address [facility]/ZIP Co de Phone Number [address] [address], [place] [phone] * (ABNORMAL) BASIC METABOLIC PANEL (CALCIUM TOTAL) (03/13/2020 5:11 AM GASKET FORMER) Only the most recent of12 resultswithin the time period is included. BUN 56(H) 7 - 26 mg/dL 03/13/2020 6:07 AM [facility] Creatinine 10.9(H) 0.6 - 1.2 mg/dL 03/13/2020 6:07 AM [facility] Sodium 140 136 - 145 mmol/L 03/13/2020 6:07 AM [facility] Potassium 4.4 3.5 - 4.5 mmol/L 03/13/2020 6:07 AM [facility] Chloride 100 98 - 107 mmol/L 03/13/2020 6:07 AM [facility] CO2 24 22 - 29 mmol/L 03/13/2020 6:07 AM [facility] Glucose 102 70 - 115 mg/dL 03/13/2020 6:07 AM [facility] Calcium 8.8 8.4 - 10.2 mg/dL 03/13/2020 6:07 AM [facility] Anion Gap 20(H) 8 - 18 03/13/2020 6:07 AM [facility] BUN/Creatinine Ratio 5(L) 7 - 23 03/13/2020 6:07 AM [facility] Osmolality Calculated 306(H) 270 - 300 mOsm/kg 03/13/2020 6:07 AM [facility] eGFR 5(L) >60 mL/min/1.7 3 m2 03/13/2020 6:07 AM [facility] Blood BLOOD SPECIMEN / Unknown Lab Venipuncture / Unknown 03/13/2020 5:11 AM GASKET FORMER 03/13/2020 5:33 AM GASKET FORMER Colton Nguyen MD LAB - CHEMISTRY YAW SIDDIQUI Performing Organization Address City/[facility]/ZIP Co de Phone Number [address] [address], [facility] [phone] * (ABNORMAL) PHOSPHORUS BLOOD (03/13/2020 5:11 AM GASKET FORMER) Phosphorus 7.0(H) 2.3 - 4.7 mg/dL 03/13/2020 6:07 AM [facility] Blood BLOOD SPECIMEN / Unknown Lab Venipuncture / Unknown 03/13/2020 5:11 AM GASKET FORMER 03/13/2020 5:33 AM GASKET FORMER Ladarius Mcmahon MD LAB - CHEMISTRY YAW ISDDIQUI [address] [address], [facility] [phone] * (ABNORMAL) IRON BLOOD (03/13/2020 5:11 AM GASKET FORMER) Iron 37(L) 50 - 175 mcg/dL 03/13/2020 5:57 AM [facility] Blood BLOOD SPECIMEN / Unknown Lab Venipuncture / Unknown 03/13/2020 5:11 AM GASKET FORMER 03/13/2020 5:31 AM GASKET FORMER Ladarius Mcmahon MD LAB - CHEMISTRY YAW SIDDIQUI [address] [address], [place] [phone] * (ABNORMAL) FOLATE (03/13/2020 5:11 AM GASKET FORMER) Folate 4.8(L) 7.0 - 31.4 ng/mL 03/13/2020 6:37 AM GASKET FORMER [facility] Blood BLOOD SPECIMEN / Unknown Lab Venipuncture / Unknown 03/13/2020 5:11 AM GASKET FORMER 03/13/2020 5:33 AM GASKET FORMER Ladarius Mcmahon MD LAB - CHEMISTRY YAW SIDDIQUI Performing Organization Address City/[facility]/ZIP Co de Phone Number [address] [address], [place] [phone] * CK BLOOD (03/13/2020 5:11 AM GASKET FORMER) Only the most recent of2 resultswithin the time period is included. CK Total 30 30 - 200 Units/L 03/13/2020 6:07 AM GASKET FORMER [facility] Blood BLOOD SPECIMEN / Unknown Lab Venipuncture / Unknown 03/13/2020 5:11 AM GASKET FORMER 03/13/2020 5:33 AM GASKET FORMER Ladarius Mcmahon MD LAB - CHEMISTRY YAW SIDDIQUI [address] [address], [place] [phone] * VITAMIN B12 (03/13/2020 5:11 AM GASKET FORMER) Vitamin B12 448 213 - 816 pg/mL 03/13/2020 6:37 AM [facility]ET FORMER [facility] Blood BLOOD SPECIMEN / Unknown Lab Venipuncture / Unknown 03/13/2020 5:11 AM GASKET FORMER 03/13/2020 5:33 AM GASKET FORMER Ladarius Mcmahon MD LAB - CHEMISTRY ORDE RABLES Performing Organization Address City/[facility]/ZIP Co de Phone Number [address] [address], [place] [phone] * (ABNORMAL) ALBUMIN BLOOD (03/13/2020 5:11 AM GASKET FORMER) Albumin 2.5(L) 3.4 - 5.0 g/dL 03/13/2020 6:07 AM [facility]ET FORMER [facility] Blood BLOOD SPECIMEN / Unknown Lab Venipuncture / Unknown 03/13/2020 5:11 AM GASKET FORMER 03/13/2020 5:33 AM GASKET FORMER Ladarius Mcmahon MD LAB - CHEMISTRY YAW SIDDIQUI Performing Organization Address [facility] Co de Phone Number [address] [address], [place] [phone] * FERRITIN (03/13/2020 5:11 AM GASKET FORMER) Pathologist [facility] Ferritin 186 22 - 275 ng/mL 03/13/2020 6:15 AM GASKET FORMER [facility] Blood BLOOD SPECIMEN / Unknown Lab Venipuncture / Unknown 03/13/2020 5:11 AM GASKET FORMER 03/13/2020 5:31 AM GASKET FORMER Ladarius Mcmahon MD LAB - CHEMISTRY YAW SIDDIQUI Performing Organization Address [facility] Co de Phone Number [address] [address], [place] [phone] * XR CHEST 2VW (03/12/2020 3:22 PM GASKET FORMER) Anatomical Region Laterality Modality Chest Radiographic Daniela ging 03/12/2020 3:26 PM GASKET FORMER Impressions 03/12/2020 3:50 PM GASKET FORMER FINDINGS/IMPRESSION: Right IJ approach hemodialysis catheter, tip terminates in the cavoatrial junction. There is no focal consolidation, pleural effusion, or pneumothorax. The cardiomediastinal silhouette is normal. The visible bony thorax is intact. Report dictated by Tatianna Rowe MD (radiology asst). I, Dr. YVROSE DALY have personally reviewed and interpreted this examination/study. This report was electronically signed by YVROSE DALY on 03/12/2020 3:50 PM . Narrative 03/12/2020 3:50 PM GASKET FORMER EXAMINATION: XR CHEST 2VW, 03/12/2020 3:23 PM HISTORY: Z99.2: Dependence on renal dialysis COMPARISON: No prior study is available for comparison. Procedure Note Yvrose Daly MD - 03/12/2020 EXAMINATION: XR CHEST 2VW, 03/12/2020 3:23 PM HISTORY: Z99.2: Dependence on renal dialysis COMPARISON: No prior study is available for comparison. FINDINGS/IMPRESSION: Right IJ approach hemodialysis catheter, tip terminates in thecavoatrial junction. There is no focal consolidation, pleural effusion, or pneumothorax. The cardiomediastinal silhouette is normal. The visiblebony thorax is intact. Report dictated by Tatianna Rowe MD (radiology asst). I, Dr. YVROSE DALY have personally reviewed and interpreted this examination/study. This report was electronically signed by YVROSE DALY on 03/12/2020 3:50 PM . Jose Garcia MD DIAGNOSTIC IMAGING O RDERABLES * HEPATITIS C AB SCREEN RFLX NAAT QUANT (03/12/2020 1:33 PM GASKET FORMER) Hepatitis C Antibody Non-react viji Non-reac tive 03/12/2020 2:53 PM GASKET FORMER [facility] Comment:Hepatitis C Antibody screen [...] Lab Venipuncture / Unknown 03/12/2020 1:33 PM GASKET FORMER 03/12/2020 2:53 PM GASKET FORMER Jose Garcia MD LAB - CHEMISTRY YAW SIDDIQUI [address] [address], [facility] [phone] * HEPATITIS C RNA QUANTITATIVE (03/12/2020 1:33 PM GASKET FORMER) Pathologist [facility] Hepatitis C RNA PCR, Interp Not Detected Not Detected 03/15/2020 5:24 PM GASKET FORMER [facility] Blood BLOOD SPECIMEN / Unknown Lab Venipuncture / Unknown 03/12/2020 1:33 PM GASKET FORMER 03/12/2020 2:08 PM GASKET FORMER Narrative [facility] - 03/15/2020 5:24 PM GASKET FORMER The Hepatitis C viral (HCV) RNA analysis utilized a serum sample, real-time reverse senior grant writer PCR, and is reported as Not Detected, Detected (<12 IU/mL), Quantity (IU/mL) or >100,000,000 IU/mL. The limit of quantitation of the assay is 12 IU/mL (100% of samples with this HCV RNA level were detected). The linear range is from 12 IU/mL to 100,000,000 IU/mL. Values less than 12 IU/mL are reported as Detected (<12 IU/mL). Values greater than 100,000,000 IU/mL are reported as > 100,000,000 IU/mL. The detection/quantitation of HCV RNA in serum is based on the isolation of HCV RNA with reverse senior grant writer of genomic HCV RNA followed by real-time PCR in the presence of an unrelated RNA internal control. The internal control ensures that RNA is isolated, and that no general significant inhibitors of the RT-PCR process are present. The analysis was performed using a U.S. FDA approved test methodology (Dhaliwal Real Time HCV). Jose Garcia MD LAB - CHEMISTRY YAW SIDDIQUI [facility] Organization Address City/State/ZIP Co de Phone Number [facility] [address] [facility] [place], [place] [id number] [place] [address] * HEPATITIS B SURFACE ANTIBODY (03/12/2020 1:33 PM GASKET FORMER) [facility] Hepatitis B Virus Surface Antibody Non-react viji Non-react viji 03/12/2020 2:54 PM GASKET FORMER [facility] Comment: < 8 mIU/mL Hepatitis B surface Antibody (HBsAb). Nonreactive for HBsAb - individual is considered not immune to Hepatitis B Virus infection. Hepatitis B Surface Antibody Quantitative 0.1 <8.0 mIU/mL 03/12/2020 2:54 PM GASKET FORMER [facility] Comment: Hepatitis B Surface Antibody Numeric Result Interpretation: Nonreactive: <8.0 mIU/mL Indeterminate: 8.0 - 12.0 mIU/mL Reactive: >12.0 mIU/mL Blood BLOOD SPECIMEN / Unknown Lab Venipuncture / Unknown 03/12/2020 1:33 PM GASKET FORMER 03/12/2020 2:03 PM GASKET FORMER Jose Garcia MD LAB - CHEMISTRY YAW SIDDIQUI [address] [address], [place] [phone] * HEPATITIS B CORE ANTIBODY (03/12/2020 1:33 PM GASKET FORMER) HBc Antibody Total Non-reacti ve Non-reacti ve 03/12/2020 2:53 PM GASKET FORMER [facility] Blood BLOOD SPECIMEN / Unknown Lab Venipuncture / Unknown 03/12/2020 1:33 PM GASKET FORMER 03/12/2020 2:53 PM GASKET FORMER Jose Garcia MD LAB - CHEMISTRY YAW SIDDIQUI Performing Organization Address [facility] Co de Phone Number [address] [address], [place] [phone] * HEPATITIS B SURFACE ANTIGEN W RFLX CONFIRMATION (03/12/2020 1:33 PM GASKET FORMER) Only the most recent of2 resultswithin the time period is included. Hepatitis B Virus Surface Antigen Non-reacti ve Non-reacti ve 03/12/2020 2:53 PM GASKET FORMER [facility] Blood BLOOD SPECIMEN / Unknown Lab Venipuncture / Unknown 03/12/2020 1:33 PM GASKET FORMER 03/12/2020 2:53 PM GASKET FORMER Jose Garcia MD LAB - CHEMISTRY YAW SIDDIQUI Performing Organization Address City/[facility]/ZIP Co de Phone Number [address] [address], [place] [phone] * HEPATITIS B CORE ANTIBODY IGM (03/12/2020 1:33 PM GASKET FORMER) Pathologist [facility] Hepatitis B Core Virus Antibody IgM Non-reacti ve Non-reacti ve 03/12/2020 2:54 PM GASKET FORMER [facility] Blood BLOOD SPECIMEN / Unknown Lab Venipuncture / Unknown 03/12/2020 1:33 PM GASKET FORMER 03/12/2020 2:03 PM GASKET FORMER Jose Garcia MD LAB - CHEMISTRY YAW SIDDIQUI [facility] [address] [place] [address], [place] [phone] * (ABNORMAL) GLUCOSE - POINT OF CARE (03/08/2020 11:28 AM GASKET FORMER) [facility] Glucose WB/POC 117(H) 70 - 115 mg/dL 03/08/2020 11:28 AM GASKET FORMER [facility] Specimen Type Venous 03/08/2020 11:28 AM GASKET FORMER [facility] Blood BLOOD SPECIMEN / Unknown 03/08/2020 11:28 AM GASKET FORMER 03/08/2020 11:28 AM GASKET FORMER Lacey Medrano DO LAB - POINT OF CAR E ORDERABLES Performing Organization Address [facility]/ZIP Co de Phone Number [address] [address], [place] [phone] * HEPATITIS B SURFACE ANTIBODY QUANT (03/07/2020 3:15 PM GASKET FORMER) [facility] Hepatitis B Virus Surface Antibody <3.10 IU/L 03/09/2020 11:12 AM GASKET FORMER [facility] ([facility]) Comment: The anti-HBs is less than 10 IU/L and is therefore negative. There is no evidence of recovery from hepatitis B infection or evidence of antibody response to HBV vaccination. An anti-HBs result greater than or equal to 10 IU/L implies immunity. For post-vaccination antibody testing guidelines for the general public refer to MMWR April 17, 2005/Vol. 54(No. 16);-23, and for healthcare workers refer to MMWR April 14, 2013/Vol. 62(No. 10);1-19. Reference Interval: anti-HBs 9.99 IU/L or less ....... Negative 10.00 IU/L or greater .... Positive Results greater than 1,000.00 IU/L are reported as greater than 1,000.00 IU/L. This assay should not be used for blood donor screening, associated re-entry protocols, or for screening Human Cell, Tissues and Cellular and Tissue-Based Products (HCT/P). Performed By: [employer] [address] [place] [address] Cable Stretcher And Tester: Laly Shelton MD Blood BLOOD SPECIMEN / Unknown Lab Venipuncture / Unknown 03/07/2020 3:15 PM GASKET FORMER 03/07/2020 3:24 PM GASKET FORMER Ladarius Mcmahon MD LAB - SEROLOGY ORDER CATE [facility] ([facility]) [address] [place] [address], [facility] * IR CENTRAL LINE INSERT TUNNEL (03/07/2020 1:41 PM GASKET FORMER) Anatomical Region Laterality Modality Chest, Upper Extremity X-Ray Ang iography 03/07/2020 3:22 PM GASKET FORMER Narrative 03/07/2020 3:23 PM GASKET FORMER This is an Interventional Nephrology procedure performed on March 07, 2020 Acoustic Engineer: Javy Burk Attending: Javy Burk Procedures performed: 1. Insertion of tunneled dialysis access catheter 2. Fluoroscopic guidance for central venous catheter procedure. 3. Ultrasound guidance for vascular access with permanent recording. 4. Conscious sedation Following informed consent the patient was taken to the angiography suite and placed on the fluoroscopy table. The skin of the right neck and chest was prepared with chlorhexidine and sterile drapes were applied. Moderate sedation on this adult patient was ordered by me, administered intravenously in my presence, and monitored by the procedure nurse as an independent trained observer who was present throughout the procedure. The following parameters were monitored: oxygen saturation, heart rate, blood pressure, and response to care. Intra-service sedation start time was 13:23 and end time was 18:45 during which I was present. Total physician intra-service sedation time was 22 minutes. For details on pre-moderate sedation and post-moderate sedation patient evaluation, please review the evaluation forms in EPIC. For details on monitored clinical parameters during the intra-service sedation time, please review the procedure nurse documentation in [facility]. Under real time ultrasound guidance, the right internal jugular vein was accessed with a micropuncture needle, a lindsey scale image was recorded and a microfilament wire was advanced to the central veins under fluoroscopic guidance. This allowed the placement of a 5 Bahraini trocar which in turn allowed the placement of a 0.035 guidewire which was manipulated into the IVC. An exit site was chosen on the chest wall and anesthetized with lidocaine. Using a metal tunneling device, a 28 cm Duraflow 2 dialysis access catheter was brought through a subcutaneous tunnel to the venotomy incision and prepared for insertion. Serial dilators were utilized to create a track to the jugular vein sufficient to accommodate a peel-away sheath which was inserted over the guidewire and the inner stylet was removed. The catheter was inserted through the sheath which was then removed. The catheter was adjusted for length under fluoroscopy such that the tip was at the junction of the SVC and RA. Both lumens flushed easily and were locked with heparin. The catheter was sutured in place with 2-0 nylon and a CHG dressing was placed. The venotomy incision was closed with a 2-0 nylon suture. I was present for the entire procedure. This report was electronically signed by JAVY BURK M.D. on 03/07/2020 3:23 PM . Procedure Note Javy Burk MD - 03/07/2020 This is an Interventional Nephrology procedure performed on March 07, 2020 Acoustic Engineer: Javy Burk Attending: Javy Burk Procedures performed: 1. Insertion of tunneled dialysis access catheter 2. Fluoroscopic guidance for central venous catheter procedure. 3. Ultrasound guidance for vascular access with permanent recording. 4. Conscious sedation Following informed consent [facility] table. The skin of the right neck andchest was prepared with chlorhexidine and sterile drapes were applied. Moderate sedation on this adult patient was ordered by me, administered intravenously in my presence, and monitored by the procedure nurse as an independent trained observer who was present throughout the procedure.The following parameters were monitored: oxygen saturation, heart rate,blood pressure, and response to care. Intra-service sedation start time was 13:23 and end time was 18:45 during which I was present. Totalphysician intra-service sedation time was 22 minutes. For details on pre-moderate sedation and post-moderate sedation patient evaluation, please reviewthe evaluation forms in [facility]. For details on monitored clinical parameters during the intra-service sedation time, please review the procedurenurse documentation in [facility]. Under real time ultrasound guidance, the right internal jugular vein was accessed with a micropuncture needle, a lindsey scale image was recordedand a microfilament wire was advanced to the central veins underfluoroscopic guidance. This allowed the placement of a 5 Bahraini trocar which in turn allowed the placement of a 0.035 guidewire which was manipulated intothe IVC. An exit site was chosen on the chest wall and anesthetized with lidocaine. Using a metal tunneling device, a 28 cm Duraflow 2 dialysis access catheter was brought through a subcutaneous tunnel to thevenotomy incision and prepared for insertion. Serial dilators were utilized to create a track to the jugular vein sufficient to accommodate a peel-away sheath which was inserted over the guidewire and the inner stylet was removed. The catheter was inserted through the sheath which was then removed. The catheter was adjusted for length under fluoroscopy suchthat the tip was at the junction of the SVC and RA. Both lumens flushedeasily and were locked with heparin. The catheter was sutured in place with2-0 nylon and a CHG dressing was placed. The venotomy incision was closed with a 2-0 nylon suture. I was present for the entire procedure. This report was electronically signed by JAVY BURK M.D. on03/07/2020 3:23 PM . Ladarius Mcmahon MD IR ORDERABLES * US KIDNEY WITH DOPPLER COMPLETE (03/07/2020 11:02 AM GASKET FORMER) Anatomical Region Laterality Modality Abdomen Ultrasound 03/07/2020 10:3 4 AM GASKET FORMER Impressions 03/07/2020 11:28 AM GASKET FORMER IMPRESSION: 1. Normal renal size. No evidence of nephrolithiasis, hydronephrosis, or solid renal mass. 2. Increased resistive indices, which may be due to renal parenchymal disease. Dictated by Yanna Yeager MD (resident). I, Dr. CHIKIS SAMULES M.D. have personally reviewed and interpreted this examination/study. This report was electronically signed by CHIKIS SAMUELS M.D. on 03/07/2020 11:28 AM . Narrative 03/07/2020 11:28 AM GASKET FORMER EXAMINATION: 1. Complete retroperitoneal sonogram 2. Color and spectral Doppler evaluation of the renal vasculature HISTORY: N17.9: Acute kidney injury COMPARISON: Renal ultrasound dated 03/05/[address] abdomen pelvis dated 03/06/2020 FINDINGS: Retroperitoneum: Right kidney: 12.6 x 6.4 x 6.0 cm Left kidney: 11.9 x 6.3 x 5.1 cm Renal parenchymal echogenicity is normal. The right kidney cyst is again seen. There is no evidence of a solid renal mass, renal calculi, or hydronephrosis. The bladder is decompressed with a Lawson catheter in place.. Renal Doppler: Arcuate and segmental arterial waveforms in both kidneys demonstrate brisk systolic upstrokes. While the renal arteries were not interrogated in their entirety, the visible portions display normal arterial waveforms and velocities. Resistive indices: Right superior kidney: 0. 77 Right mid kidney: 0. 75 Right inferior kidney: 0. 79 Right renal artery: 0. 87 Left superior kidney: 0. 70 Left mid kidney: 0. 72 Left inferior kidney: 0. 85 Left renal artery: 0.89 Procedure Note Chikis Samuels MD - 03/07/2020 EXAMINATION: 1. Complete retroperitoneal sonogram 2. Color and spectral Doppler evaluation of the renal vasculature HISTORY: N17.9: Acute kidney injury COMPARISON: Renal ultrasound dated 03/05/[address] abdomen pelvisdated 03/06/2020 FINDINGS: Retroperitoneum: Right kidney: 12.6 x 6.4 x 6.0 cm Left kidney: 11.9 x 6.3 x 5.1 cm Renal parenchymal echogenicity is normal. The right kidney cyst is again seen. There is no evidence of a solid renal mass, renal calculi, or hydronephrosis. The bladder is decompressed with a Lawson catheter in place.. Renal Doppler: Arcuate and segmental arterial waveforms in both kidneys demonstratebrisk systolic upstrokes. While the renal arteries were not interrogated in their entirety, the visible portions display normal arterial waveformsand velocities. Resistive indices: Right superior kidney: 0. 77 Right mid kidney: 0. 75 Right inferior kidney: 0. 79 Right renal artery: 0. 87 Left superior kidney: 0. 70 Left mid kidney: 0. 72 Left inferior kidney: 0. 85 Left renal artery: 0.89 IMPRESSION: 1. Normal renal size. No evidence of nephrolithiasis, hydronephrosis, or solid renal mass. 2. Increased resistive indices, which may be due to renal parenchymal disease. Dictated by Yanna Yeager MD (resident). I, Dr. CHIKIS SAMUELS M.D. have personally reviewed and interpreted this examination/study. This report was electronically signed by CHIKIS SAMUELS M.D. on03/07/2020 11:28 AM . Ladarius Mcmahon MD US ORDERABLES * CULTURE URINE (03/06/2020 5:28 PM GASKET FORMER) Only the most recent of3 resultswithin the time period is included. Culture Urine No growth (<100 CFU/mL) FLORENCIO 03/08/2020 12:28 PM GASKET FORMER [facility]CRO[facility] Urine URINE SPECIMEN OBTAINED VIA [employer]WELL[employer] URINARY CATHETER / Unknown Collection / Unknown 03/06/2020 5:28 PM GASKET FORMER 03/06/2020 6:59 PM GASKET FORMER Chelsi Trujillo APRN-LINER REROLL TENDER LAB - MICROBIOL OGY ORDERABLES [facility]CRO[facility] [address] [place] [address], [facility] [phone] * SODIUM URINE RANDOM (03/06/2020 5:28 PM GASKET FORMER) Only the most recent of2 resultswithin the time period is included. Sodium Urine 141 Not Established mmol/L 03/06/2020 6:41 PM GASKET FORMER [facility] Urine URINE SPECIMEN OBTAINED BY CLEAN CATCH PROCEDURE / Unknown Collection / Unknown 03/06/2020 5:28 PM GASKET FORMER 03/06/2020 5:34 PM GASKET FORMER Adilene Peralta MD LAB - URINE CHEMISTR Y ORDERABLES Performing Organization Address City/[facility]/ZIP Co de Phone Number [facility] [address] [place] [address], [place] [phone] * UREA NITROGEN URINE RANDOM (03/06/2020 5:28 PM GASKET FORMER) Urea Nitrogen Random Urine <5 Not Established mg/dL 03/06/2020 6:41 PM GASKET FORMER [facility] Urine URINE SPECIMEN OBTAINED BY CLEAN CATCH PROCEDURE / Unknown Collection / Unknown 03/06/2020 5:28 PM GASKET FORMER 03/06/2020 5:34 PM GASKET FORMER Adilene Peralta MD LAB - URINE CHEMISTR Y ORDERABLES [address] [address], [place] [phone] * POTASSIUM URINE RANDOM (03/06/2020 5:28 PM GASKET FORMER) Potassium Urine 1 Not Established mmol/L 03/06/2020 6:41 PM GASKET FORMER [facility] Urine URINE SPECIMEN OBTAINED BY CLEAN CATCH PROCEDURE / Unknown Collection / Unknown 03/06/2020 5:28 PM GASKET FORMER 03/06/2020 5:34 PM GASKET FORMER Adilene Peralta MD LAB - URINE CHEMISTR Y ORDERABLES Performing Organization Address [facility]/ZIP Co de Phone Number [address] [address], [place] [phone] * OSMOLALITY URINE (03/06/2020 5:28 PM GASKET FORMER) Osmolality Urine 301 50-1,200 mOsm/kg 03/06/2020 7:38 PM GASKET FORMER [facility] Urine URINE SPECIMEN OBTAINED BY CLEAN CATCH PROCEDURE / Unknown Collection / Unknown 03/06/2020 5:28 PM GASKET FORMER 03/06/2020 5:34 PM GASKET FORMER Chelsi Trujillo APRN-[employer]ER REROLL TENDER LAB - URINE LANCE GOPI ORDERABLES Performing Organization Address City/[facility] [facility]ZIP Co de Phone Number [address] [address], [place] [phone] * CREATININE URINE RANDOM (03/06/2020 5:28 PM GASKET FORMER) Only the most recent of2 resultswithin the time period is included. Creatinine Urine <3 Not Established mg/dL 03/06/2020 6:41 PM GASKET FORMER [facility] Urine URINE SPECIMEN OBTAINED BY CLEAN CATCH PROCEDURE / Unknown Collection / Unknown 03/06/2020 5:28 PM GASKET FORMER 03/06/2020 5:34 PM GASKET FORMER Adilene Peralta MD LAB - URINE CHEMISTR Y ORDERABLES [facility] [address] [place] [id number], [facility] [phone] * CT CYSTOGRAM (03/06/2020 3:36 PM GASKET FORMER) Anatomical Region Laterality Modality Pelvis Computed Tomogra phy 03/06/2020 3:11 PM GASKET FORMER Impressions 03/06/2020 4:19 PM GASKET FORMER Impression: 1.No filling defect is seen within the opacified urinary bladder. 2.The kidneys appear normal. No hydronephrosis or hydroureter. 3.Prostatectomy. Report dictated by João Portillo MD (radiology asst). I, Dr. TANJA COLBERT have personally reviewed and interpreted this examination/study. This report was electronically signed by TANJA COLBERT on 03/06/2020 4:19 PM . Narrative 03/06/2020 4:19 PM GASKET FORMER Procedure Information DATE: 03/06/2020 3:12 PM EXAMINATION: Computed tomography (CT) of the abdomen and pelvis without contrast TECHNIQUE: CT of the abdomen and pelvis was performed without contrast according to standard protocol. CT cystogram following the uneventful administration of 100 mL mixture of 40mL Isovue-370 contrast with normal saline via the urinary catheter according to a cystography protocol. 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 Lower Chest: The lung bases are clear. Liver: Normal. Gallbladder and Bile Ducts: The gallbladder is surgically absent. The bile ducts are nondilated. Kidneys: Aside from a right renal cyst, the kidneys are normal. No hydronephrosis or hydroureter. Adrenals: Normal. Spleen: Normal. Pancreas: Normal. Gastrointestinal: The distal esophagus and stomach are normal. The small and large bowel are nondilated without wall thickening. The appendix appears normal. Mesentery/Peritoneum: No intra-abdominal free fluid or pneumoperitoneum. Retroperitoneum: Normal. Pelvic Structures: The pelvic structures are obscured by a right hip arthroplasty. No filling defect is seen within the urinary bladder while distended with contrast. A small amount contrast is seen in the urinary outflow tract. The prostate is surgically absent. Nodes: Scattered small nodes but no adenopathy. Vasculature: Scattered atherosclerotic vasculature changes. Bones: Bone windows demonstrate no suspicious lytic or blastic lesions. Postoperative appearance of right hip arthroplasty. The visible osseous structures are otherwise intact. Degenerative changes are seen in the spine. Soft tissues: Normal. Procedure Note Tanja Colbert MD - 03/06/2020 Procedure Information DATE: 03/06/2020 3:12 PM EXAMINATION: Computed tomography (CT) of the abdomen and pelvis without contrast TECHNIQUE: CT of the abdomen and pelvis was performed without contrast according to standard protocol. CT cystogram following the uneventful administrationof 100 mL mixture of 40mL Isovue-370 contrast with normal saline via the urinary catheter according to a cystography protocol. Clinical Information HISTORY: N40.1: BPH with obstruction/lower urinary tract symptoms N13.8: BPH with obstruction/lower urinary tract symptoms R79.89: Creatinine elevation N17.9: Acute kidney injury COMPARISON: MRI Pelvis 01/21/2020 Findings Evaluation of visceral and vascular structures is degraded due to lackof intravenous contrast administration. Lower Chest: The lung bases are clear. Liver: Normal. Gallbladder and Bile Ducts: The gallbladder is surgically absent. The bile ducts are nondilated. Kidneys: Aside from a right renal cyst, the kidneys are normal. No hydronephrosis or hydroureter. Adrenals: Normal. Spleen: Normal. Pancreas: Normal. Gastrointestinal: The distal esophagus and stomach are normal. The small and large bowelare nondilated without wall thickening. The appendix appears normal. Mesentery/Peritoneum: No intra-abdominal free fluid or pneumoperitoneum. Retroperitoneum: Normal. Pelvic Structures: The pelvic structures are obscured by a right hip arthroplasty. Nofilling defect is seen within the urinary bladder while distended with contrast.A small amount contrast is seen in the urinary outflow tract. The prostate is surgically absent. Nodes: Scattered small nodes but no adenopathy. Vasculature: Scattered atherosclerotic vasculature changes. Bones: Bone windows demonstrate no suspicious lytic or blastic lesions. Postoperative appearance of right hip arthroplasty. The visible osseous structures are otherwise intact. Degenerative changes are seen in the spine. Soft tissues: Normal. Impression: 1.No filling defect is seen within the opacified urinary bladder. 2.The kidneys appear normal. No hydronephrosis or hydroureter. 3.Prostatectomy. Report dictated by João Portillo MD (radiology asst). Dr. TANJA Lawson have personally reviewed and interpreted this examination/study. This report was electronically signed by TANJA COLBERT on 03/06/20204:19 PM . Chelsi Trujillo HOUSE PIPING INSPECTOR-LINER REROLL TENDER CT ORDERABLES * CT ABDOMEN PELVIS WO CONTRAST (03/06/2020 3:36 PM GASKET FORMER) Anatomical Region Laterality Modality Abdomen, Pelvis Computed Tomogra phy 03/06/2020 3:11 PM GASKET FORMER Impressions 03/06/2020 4:19 PM GASKET FORMER Impression: 1.No filling defect is seen within the opacified urinary bladder. 2.The kidneys appear normal. No hydronephrosis or hydroureter. 3.Prostatectomy. Report dictated by João Portillo MD (radiology asst). Dr. TANJA Lawson have personally reviewed and interpreted this examination/study. This report was electronically signed by TANJA COLBERT on 03/06/2020 4:19 PM . Narrative 03/06/2020 4:19 PM GASKET FORMER Procedure Information DATE: 03/06/2020 3:12 PM EXAMINATION: Computed tomography (CT) of the abdomen and pelvis without contrast TECHNIQUE: CT of the abdomen and pelvis was performed without contrast according to standard protocol. CT cystogram following the uneventful administration of 100 mL mixture of 40mL Isovue-370 contrast with normal saline via the urinary catheter according to a cystography protocol. 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 Lower Chest: The lung bases are clear. Liver: Normal. Gallbladder and Bile Ducts: The gallbladder is surgically absent. The bile ducts are nondilated. Kidneys: Aside from a right renal cyst, the kidneys are normal. No hydronephrosis or hydroureter. Adrenals: Normal. Spleen: Normal. Pancreas: Normal. Gastrointestinal: The distal esophagus and stomach are normal. The small and large bowel are nondilated without wall thickening. The appendix appears normal. Mesentery/Peritoneum: No intra-abdominal free fluid or pneumoperitoneum. Retroperitoneum: Normal. Pelvic Structures: The pelvic structures are obscured by a right hip arthroplasty. No filling defect is seen within the urinary bladder while distended with contrast. A small amount contrast is seen in the urinary outflow tract. The prostate is surgically absent. Nodes: Scattered small nodes but no adenopathy. Vasculature: Scattered atherosclerotic vasculature changes. Bones: Bone windows demonstrate no suspicious lytic or blastic lesions. Postoperative appearance of right hip arthroplasty. The visible osseous structures are otherwise intact. Degenerative changes are seen in the spine. Soft tissues: Normal. Procedure Note Tanja Colbert MD - 03/06/2020 Procedure Information DATE: 03/06/2020 3:12 PM EXAMINATION: Computed tomography (CT) of the abdomen and pelvis without contrast TECHNIQUE: CT of the abdomen and pelvis was performed without contrast according to standard protocol. CT cystogram following the uneventful administrationof 100 mL mixture of 40mL Isovue-370 contrast with normal saline via the urinary catheter according to a cystography protocol. Clinical Information HISTORY: N40.1: BPH with obstruction/lower urinary tract symptoms N13.8: BPH with obstruction/lower urinary tract symptoms R79.89: Creatinine elevation N17.9: Acute kidney injury COMPARISON: MRI Pelvis 01/21/2020 Findings Evaluation of visceral and vascular structures is degraded due to lackof intravenous contrast administration. Lower Chest: The lung bases are clear. Liver: Normal. Gallbladder and Bile Ducts: The gallbladder is surgically absent. The bile ducts are nondilated. Kidneys: Aside from a right renal cyst, the kidneys are normal. No hydronephrosis or hydroureter. Adrenals: Normal. Spleen: Normal. Pancreas: Normal. Gastrointestinal: The distal esophagus and stomach are normal. The small and large bowelare nondilated without wall thickening. The appendix appears normal. Mesentery/Peritoneum: No intra-abdominal free fluid or pneumoperitoneum. Retroperitoneum: Normal. Pelvic Structures: The pelvic structures are obscured by a right hip arthroplasty. Nofilling defect is seen within the urinary bladder while distended with contrast.A small amount contrast is seen in the urinary outflow tract. The prostate is surgically absent. Nodes: Scattered small nodes but no adenopathy. Vasculature: Scattered atherosclerotic vasculature changes. Bones: Bone windows demonstrate no suspicious lytic or blastic lesions. Postoperative appearance of right hip arthroplasty. The visible osseous structures are otherwise intact. Degenerative changes are seen in the spine. Soft tissues: Normal. Impression: 1.No filling defect is seen within the opacified urinary bladder. 2.The kidneys appear normal. No hydronephrosis or hydroureter. 3.Prostatectomy. Report dictated by João Portillo MD (radiology asst). Dr. TANJA Lawson have personally reviewed and interpreted this examination/study. This report was electronically signed by TANJA COLBERT on 03/06/20204:19 PM . Ladarius Mcmahon MD CT ORDERABLES * US RETROPERITONEAL COMPLETE (03/05/2020 7:58 PM GASKET FORMER) Anatomical Region Laterality Modality Abdomen Ultrasound 03/06/2020 8:10 AM GASKET FORMER Impressions 03/06/2020 8:55 AM GASKET FORMER IMPRESSION: 1. No hydronephrosis. 2. There is trace perihepatic fluid, of uncertain etiology. Dictated by Yanna Yeager MD (resident). Dr. MARGO Laswon have personally reviewed and interpreted this examination/study. This report was electronically signed by MARGO GONZALEZ on 03/06/2020 8:55 AM . Narrative 03/06/2020 8:55 AM GASKET FORMER EXAMINATION: Complete retroperitoneal sonogram HISTORY: R79.89: Creatinine elevation COMPARISON: None FINDINGS: Right kidney: 10.5 x 5.5 x 5.3 cm Left kidney: 11.3 x 6.3 x 5.2 cm Renal parenchymal echogenicity is normal. There is a 2.7 cm cyst in the right kidney. There is no evidence of hydronephrosis. There is no evidence of a solid renal mass or stone. Blood flow is seen within the renal arteries and veins. The bladder is decompressed with a Lawson catheter in place.. There is trace perihepatic fluid. Procedure Note Margo Gonzalez MD - 03/06/2020 EXAMINATION: Complete retroperitoneal sonogram HISTORY: R79.89: Creatinine elevation COMPARISON: None FINDINGS: Right kidney: 10.5 x 5.5 x 5.3 cm Left kidney: 11.3 x 6.3 x 5.2 cm Renal parenchymal echogenicity is normal. There is a 2.7 cm cyst in the right kidney. There is no evidence of hydronephrosis. There is noevidence of a solid renal mass or stone. Blood flow is seen within the renal arteries and veins. The bladder is decompressed with a Lawson catheter in place.. There is trace perihepatic fluid. IMPRESSION: 1. No hydronephrosis. 2. There is trace perihepatic fluid, of uncertain etiology. Dictated by Yanna Yeager MD (resident). I, Dr. MARGO GONZALEZ have personally reviewed and interpreted this examination/study. This report was electronically signed by MARGO OGNZALEZ on 03/06/2020 8:55 AM . Chelsi Trujillo HOUSE PIPING INSPECTOR-LINER REROLL TENDER US ORDERABLES * POTASSIUM WHOLE BLD (03/04/2020 10:18 PM GASKET FORMER) Potassium Whole Blood 4.9 3.5 - 5.5 mmol/L 03/04/2020 10:23 PM GASKET FORMER [facility] Blood WHOLE BLOOD SPECIMEN / Unknown Lab Venipuncture / Unknown 03/04/2020 10:18 PM GASKET FORMER 03/04/2020 10:21 PM GASKET FORMER Lacey Medrano DO LAB - CHEMISTRY OR DERABLES [facility] [address] [place] [id number], [place] [phone] * PATHOLOGY TISSUE (03/04/2020 3:00 PM GASKET FORMER) Only the most recent of2 resultswithin the time period is included. Case Report Surgical Pathology Report Case: [id number] Authorizing Provider: Lacey Medrano DO Collected: 03/04/2020 03:00 PM Ordering Location: [facility] OP Received: 03/04/2020 03:38 PM Pathologist: Charisse Powell MD Specimen: Prostate TUR, Prostate Chips 03/06/2020 6:11 PM [facility] Final Diagnosis Prostate, transurethral resection (TURP) (A): - Stromal and glandular hyperplasia with focal calcification 03/06/2020 6:11 PM [facility] Microscopic Description and Comment Microscopic examination substantiates the final diagnosis. 03/06/2020 6:11 PM [facility] Clinical History 60 yo M with symptomatic BPH. Negative prostate bx's 01/2020 ([id number]) 03/06/2020 6:11 PM [facility] Gross Description The requisition and specimen label(s) are identified with the patient's name, Junior Palm II. Received in formalin, specimen A , are multiple henderson-pink fragments ranging in size from 0.2-1.5 cm with an aggregate measurement 3.5 x 2.5 x 0.2 cm and weighing 14 g. The specimen is entirely submitted in cassette A1-A4. 03/06/2020 6:11 PM [facility] Disclaimer The performance characteristics of all immunohistochemical and indirect immunofluorescence stains (if any) cited in this report were determined by the Histopathology Laboratory of [facility]. Some of these tests were developed by our own laboratory and have not been cleared or approved by the US Food and Drug Administration. The FDA does not require this test to go through premarket FDA review. These tests are used for clinical purposes. They should not be regarded as investigational or for research. This laboratory is certified under the Clinical Laboratory Improvement Amendments (CLIA) as qualified to perform high complexity clinical laboratory testing. This case has been personally reviewed and interpreted by the attending (teaching) pathologist. 03/06/2020 6:11 PM [facility] Embedded Images 03/06/2020 6:11 PM [facility] Gross only TRANSURETHRAL PROSTATECTOMY / Unknown 03/04/2020 3:00 PM GASKET FORMER 03/04/2020 3:38 PM GASKET FORMER Comment:Pre-op diagnosis: BPH with obstruction/lower urinary tract symptoms Lacey Montes Marcela RICCI LAB - PATHOLOGY/IRASEMA CARDENASY ORDERABLES [facility] [address] [place] [address], [facility] [phone] * (ABNORMAL) DIFFERENTIAL MANUAL (03/04/2020 2:20 PM GASKET FORMER) WBC (corrected for NRBC) 20.9 10 3/uL 03/04/2020 3:22 PM [facility] Total Cell Count 100 03/04/20 20 3:22 PM [facility] Neutrophils Absolute Manual 14.00(H) 1.60 - 7.00 10 3/uL 03/04/2020 3:22 PM [facility] Comment:(BANDS+SEGS) x WBC = NEUT # (ANC) Lymphocyte Absolute Manual 5.64(H) 0.80 - 2.90 10 3/uL 03/04/2020 3:22 PM [facility] Monocytes Absolute Manual 0.63 0.14 - 0.66 10 3/uL 03/04/2020 3:22 PM [facility] Eosinophils Absolute Manual 0.63(H) 0.00 - 0.22 10 3/uL 03/04/2020 3:22 PM [facility] Neutrophil % Manual 67(H) 30 - 60 % 03/04/2020 3:22 PM [facility] Lymphocyte % Manual 27 20 - 45 % 03/04/2020 3:22 PM [facility] Monocytes % Manual 3 2 - 10 % 03/04/2020 3:22 PM [facility] Eosinophils % Manual 3 1 - 6 % 03/04/2020 3:22 PM [facility] Platelet Estimate Adequate Adequate 03/04/2020 3:22 PM [facility] Anisocytosis 1+(A) None 03/04/2020 3:22 PM [facility] Target Cells 1+(A) None 03/04/2020 3:22 PM [facility] [place] Cells 1+(A) None 03/04/2020 3:22 PM GASKET FORMER [facility] Blood BLOOD SPECIMEN / Unknown Venipuncture / Unknown 03/04/2020 2:20 PM GASKET FORMER 03/04/2020 2:37 PM GASKET FORMER Colton Nguyen MD LAB - HEMATOLOGY ORD ERABLES [facility] [address] [place] [address], [facility] [phone] * ETT LINE PERFORMABLE (03/04/2020 12:29 PM GASKET FORMER) Narrative Harini Rodriguez MD - 03/04/2020 12:29 PM GASKET FORMER Dianelys Morel APRN-CRNA 03/04/2020 12:30 PM Endotracheal Tube Placement: Patient Location: OR. Intubation Event Date/Time: 03/04/2020 12:24 PM Procedure: intubation ([id number]). Procedure Section: Sedation: under general anesthesia. Indications for Airway Management: anesthesia Induction: standard IV Patient Position: supine Mask Ventilation: easy with oral airway. Blade Type: Jennifer Blade Size: 4 Laryngoscopy View: grade 1 (full cords) Intubation Adjuncts: cricoid pressure Tube: endotracheal tube Placement: oral Tube type: cuff - inflated Tube Size (MM): 8 Depth of Insertion (CM): 23 Measured From: teeth Cuff volume (mL): 5 Cuff Inflated With: air Number of Attempts: 1. Ventilation between attempts: No. Placement Verified By: direct visualization, bilateral breath sounds, chest auscultation and CO2 monitor Tube secured with: adhesive tape. Dentition unchanged? Yes Difficult Airway? No. Procedure Start Time: 03/04/2020 12:24 PM. Staff Section Anesthesia Provider: Dianelys Morel APRN-CRNA, Performed the procedure Harini Rodriguez MD GENERAL ANESTHESIA ORDERABLES * SARS-COV-2 (COVID-19) PRE-SURICAL/PROCEDURE (03/01/2020 2:19 PM GASKET FORMER) COVID-19 PCR Not detected Not detected 03/01/2020 9:23 PM GASKET FORMER [facility] Microbiology SPECIMEN FROM NASOPHARYNGEAL STRUCTURE / Unknown Collection / Unknown 03/01/2020 2:19 PM GASKET FORMER 03/01/2020 2:19 PM GASKET FORMER Narrative [facility] - 03/01/2020 9:23 PM GASKET FORMER This nucleic acid amplification assay performance was validated by [facility]. This test has been authorized by the Food and Drug administration (FDA)under an Emergency Use Authorization (EUA). This test has been validated in accordance with the FDA's guidance document Policy for Diagnostic Testing in Laboratories Certified to perform High Complexity Testing under CLIA prior to Emergency Use Authorization for Coronavirus Disease-2019 during the Public Health Emergency issued on June 24, 2019. FDA independent review of this validation is pending. This test is only authorized for the duration of time the declaration that circumstances exist justifying the authorization of emergency use of in vitro diagnostic tests for detection of SARS-CoV-2 virus and/or diagnosis of COVID-19 infection under section 564(b)(1) of the Act, 21 U.S.C 360bbb-3 (b)(1), unless the authorization is terminated or revoked sooner. Fact Sheets for this EUA assay are available upon request. Lacey Medrano DO LAB - MICROBIOLOGY ORDERABLES [facility] [address] [place], [place] [address], [facility] [phone] * AR BIOPSY OF PROSTATE,NEEDLE/PUNCH, AR US GUIDED NEEDLE PLACEMENT (02/16/2020 10:23 AM CDT) Narrative Lacey Medrano DO - 02/16/2020 10:23 AM CDT Lacey Medrano DO 02/16/2020 5:43 PM DATE OF PROCEDURE: 02/16/2020 DIAGNOSIS: Elevated PSA PROCEDURE: TransRectal UltraSound and Prostate Needle Biopsy x 13 SURGEON/ATTENDING: Marcela ANESTHESIA: 1% lidocaine injected FINDINGS: Testes bilaterally descended and of normal contour and consistency. ANIBAL is 40 grams with no nodules, slight induration on right side. PSA: 11/22/2019: 6.1 11/09/2019: 21.3 (patient had infection at this time) TRUS prostate measurements: Width: 5.13cm Height: 2.6cm Length: 4.72cm Volume: 32.85 grams EBL: Minimal COMPLICATIONS: None apparent. SPECIMEN: 12 needle cores of approximately 1cm each with 2 from each site as: - Right lateral base, right lateral mid, right lateral apex - Right medial base, right medial mid, right medial apex - Left lateral base*, left lateral mid, left lateral apex - Left medial base, left medial mid, left medial apex *This core was repeated as first specimen did not appear to contain much prostatic tissue. DRAINS: None COUNTS: Not applicable. INDICATIONS: The patient is a 59 yo male with a h/o an elevated PSA of 6.1. Had an MRI which showed a PI-RADS 3 lesion (more diffuse than focal). Given lack of focal ATILIO, TRUS Bx was recommended. He provided consent understanding the risks of: blood loss, pain and infection as well as apossibility of seeing blood in his urine and stool for 3 weeks and this may include clots as well as having hemoejaculate up to 30 times. He received a Fleets enema and gentamicin 80mg IM with ciprofloxacin preoperatively x two doses. He wishes to proceed. He has confirmed cessation of NSAIDs for at least one week. PROCEDURE: The patient was brought into the TRUS suite and placed into the left lateral decubitus position. The rectral ultrasound probe was gently inserted into the rectum until the prostate was visualized. Lidocaine was injected. Measurements were taken. Under ultrasound guidance the twelve cores were taken. The patient tolerated the procedure well and was dispositioned to use the washroom, cleanse and change clothes. He was warned of signs and symptoms of sepsis and told to come directly to ER if he experiences them. PLAN: See progress note from today's date. Colton Nguyen MD Urology PGY3 02/16/2020 10:23 AM I was present and assisted and performed portions of the procedure. Lacey Medrano DO 02/16/2020 5:43 PM Colton Nguyen MD PROCEDURE/MINOR SURG ICAL ORDERABLES * URINALYSIS AUTO - POINT OF CARE (AMB) [facility] (02/16/2020 8:34 AM CDT) Only the most recent of4 resultswithin the time period is included. Glucose UA neg Bilirubin UA POCT neg Ketones UA POCT neg Specific [place] UA 1.030 Blood Urine POCT neg pH UA 5.0 Protein UA 0.15 g/L Urobilinogen UA 3.5 umol/L Nitrite UA neg WBC UA neg Urine URINE / Unknown 02/16/2020 8 :34 AM CDT Lacey Medrano DO LAB - POINT OF CAR E ORDERABLES * MRI PELVIS MALE WWO CONTRAST (01/21/2020 11:58 AM CDT) Anatomical Region Laterality Modality Pelvis Magnetic Resonan ce 01/22/2020 8:19 AM CDT Impressions 01/22/2020 10:51 AM CDT IMPRESSION: Diffuse patchy low T2 signal and mild diffusion restriction throughout the transition zone that is nonspecific, but could represent multifocal cancer (PI-RADS 3). This report was approved by Leonides Mendosa Dr on 01/22/2020 9:24 AM . I, Dr. ANAM BUCK M.D. have personally reviewed and interpreted this examination/study. This report was electronically signed by ANAM BUCK M.D. on 01/22/2020 10:51 AM . Narrative 01/22/2020 10:51 AM CDT Exam: MRI prostate with and without contrast History: 59-year-old male with past medical history significant for symptomatic benign prostatic hypertrophy, presenting for preoperative evaluation for transurethral prostatectomy. Noted elevated PSA 21.3 and family history of prostate cancer. Comparison: No prior imaging is available for comparison at this time. Technique: Multiplanar multiecho MR sequences of the prostate gland were performed with and without contrast using a pelvic phased array coil at 3 [place], according to PI-RADS v2 criteria prior to and after the uneventful administration of 20 ml MultiHance intravenous contrast. Legend for Prostate Lesion Location (delete before signing report) Anterior stroma : refers to the anterior fibrous tissue of the prostate Base, mid-gland, and apex : refer to craniocaudal position, with apex being the most inferior and base being the most superior. Anterior and Posterior : refer to the anterior and posterior within the sites listed above (anterior is from 9:00 12:00, and 12:00-3:00) FINDINGS: Prostate gland measurements Max AP Dimension (T2 midline sagittal): 3.1 cm Max TV Dimension (T2 axial): 4.3 cm Max CC Dimension (T2 midline sagittal): 3.9 cm Prostatic Volume: -Ellipsoid volume: 35.29 mL -Bulla volume: 44.11 mL Lesion 0.8 cm simple cyst in the right anterior transition zone. Patchy diffusion restriction seen throughout the transition zone without substantial corresponding diffusion restriction. No focal lesion is seen in the prostate that is concerning for prostate cancer, however, there is diffuse patchy low T2 signal and mild diffusion restriction throughout the transition zone that is nonspecific, but could represent multifocal cancer. Invasion Right seminal vesicle invasion: No Left seminal vesicle invasion: No Bladder neck invasion: No Membranous urethra invasion: No PI-RADS Category PI-RADS: 3 There is moderate benign prostatic hypertrophy (BPH). The median lobe is not substantially enlarged. The length of the membranous urethra is 14 mm on coronal sequences. Lymph Nodes: No pelvic or inguinal lymphadenopathy is identified. Marrow Signal: Marrow signal is within normal limits. Extraprostatic Findings: Susceptibility artifact from a right total hip arthroplasty is present. Procedure Note Anam Buck MD - 01/22/2020 Exam: MRI prostate with and without contrast History: 59-year-old male with past medical history significant for symptomatic benign prostatic hypertrophy, presenting for preoperative evaluation for transurethral prostatectomy. Noted elevated PSA 21.3 and family history of prostate cancer. Comparison: No prior imaging is available for comparison at this time. Technique: Multiplanar multiecho MR sequences of the prostate gland were performed with and without contrast using a pelvic phased array coil at3 [place], according to PI-RADS v2 criteria prior to and after theuneventful administration of 20 ml MultiHance intravenous contrast. Legend for Prostate Lesion Location (delete before signing report) Anterior stroma : refers to the anterior fibrous tissue of the prostate Base, mid-gland, and apex : refer to craniocaudal position, with apex being the most inferior and base being the most superior. Anterior and Posterior : refer to the anterior and posterior within the sites listed above (anterior is from 9:00 12:00, and 12:00-3:00) FINDINGS: Prostate gland measurements Max AP Dimension (T2 midline sagittal): 3.1 cm Max TV Dimension (T2 axial): 4.3 cm Max CC Dimension (T2 midline sagittal): 3.9 cm Prostatic Volume: -Ellipsoid volume: 35.29 mL -Bulla volume: 44.11 mL Lesion 0.8 cm simple cyst in the right anterior transition zone. Patchy diffusion restriction seen throughout the transition zone without substantial corresponding diffusion restriction. No focal lesion is seen in the prostate that is concerning for prostate cancer, however, there is diffuse patchy low T2 signal and milddiffusion restriction throughout the transition zone that is nonspecific, butcould represent multifocal cancer. Invasion Right seminal vesicle invasion: No Left seminal vesicle invasion: No Bladder neck invasion: No Membranous urethra invasion: No PI-RADS Category PI-RADS: 3 There is moderate benign prostatic hypertrophy (BPH). The median lobe is not substantially enlarged. The length of the membranous urethra is 14 mm on coronal sequences. Lymph Nodes: No pelvic or inguinal lymphadenopathy is identified. Marrow Signal: Marrow signal is within normal limits. Extraprostatic Findings: Susceptibility artifact from a right total hip arthroplasty is present. IMPRESSION: Diffuse patchy low T2 signal and mild diffusion restriction throughoutthe transition zone that is nonspecific, but could represent multifocalcancer (PI-RADS 3). This report was approved by Leonides Mendosa Dr on 01/22/2020 9:24 AM . IDr. ANAM M.D. have personally reviewed and interpreted this examination/study. This report was electronically signed by ANAM BUCK M.D. on01/22/2020 10:51 AM . Lacey Medrano DO MR ORDERABLES * CREATININE - POCT INTERFACED (01/21/2020 10:36 AM CDT) Creatinine POCT 0.75 0.30 - 1.30 mg/dL 01/21/2020 1:08 PM CDT [facility] eGFR >60 >60 mL/min/1.7 3 m2 01/21/2020 1:08 PM CDT [facility] Blood BLOOD SPECIMEN / Unknown 01/21/2020 10:36 AM CDT 01/21/2020 1:08 PM CDT Lacey Medrano DO LAB - POINT OF CAR E ORDERABLES [facility] [address] [address], [facility] [phone] * LAB RESULTS ORDER (11/24/2019 11:40 AM CDT) Only the most recent of3 resultswithin the time period is included. Narrative 11/24/2019 11:40 AM CDT Ordered by an unspecified provider. Scanned Document LAB - THERAPEUTIC DR UG MONITORING ORDERABLES * AR CYSTOURETHROSCOPY (11/06/2019 9:54 PM CDT) Narrative Lacey Medrano DO - 11/06/2019 9:54 PM CDT Lacey Medrano DO 11/06/2019 9:57 PM DOS:11/01/2019 Cystoscopy: The urethral meatus was cleaned with betadine and the patient was draped. Lidocaine urojet was injected into the urethra and given sufficient time to take effect. The flexible cystoscope was passed through the urethral meatus and carried proximally to reveal a normal urethra. There was a well coapting sphincter. Prostate showed obstructing lateral lobe hyperplasia with the prostatic urethra measuring 4cm in length and the lateral lobes coapting in the midline. He had no significant median lobe. The bladder was entered and carefully inspected. Bladder wall was minimally trabeculated. Bladder mucosa was normal with no tumors, polyps, inflammatory changes or other abnormalities. No bladder stones or bladder diverticuli. The ureteral orifices were easily identified. There was no bloody efflux appreciated from either ureteral orifice. I retroflexed the scope and looked at the bladder outlet and saw no abnormal lesions. I removed the cystoscope. The patient tolerated the procedure well. Lacey Medrano DO Lacey Medrano DO PROCEDURE/MINOR YOU RGICAL ORDERABLES * STREP A SCREEN (06/25/2019) Strep A Rapid POCT Negative Negative Strep A Internal Control Present Lot # [id number] Expiration Date 01/23/21 Throat ENTIRE THROAT (SURFACE REGION OF NECK) / Unknown 06/25/2019 Tona Santos HOUSE PIPING INSPECTOR-LINER REROLL TENDER LAB - POINT OF CARE ORDERABLES * AR MSR PVR U&/BLADD CAPCTY US NON (03/31/2019 2:12 PM GASKET FORMER) Narrative Shashi Goddard - 03/31/2019 2:12 PM GASKET FORMER Shashi Goddard 03/31/2019 2:42 PM PVR per bladder scanner 56 ml Patriciagila Knightjaycee COLINDRES PROCEDURE/MINOR SURGICAL ORDERABLES * PATHOLOGY TISSUE FOR DERMATOLOGY (01/27/2012 12:00 AM CDT) Result CASE: [id number] PATIENT: JUNIOR PALM PATHOLOGIC DIAGNOSIS: Right forerarm: HYPERPLASTIC (HYPERTROPHIC) ACTINIC KERATOSIS CLINICAL DATA: R/O SCC, LSC GROSS DESCRIPTION: Received is one formalin filled container labeled with the patient's name and designated right forearm. The specimen consists of a punch biopsy measuring [id number], bisected. Jar 0. MICROSCOPIC DESCRIPTION: There is hyperkeratosis alternating with parakeratosis. There is epidermal hyperplasia with disorderly maturation of keratinocytes with nuclear pleomorphism confined to the lower half of the epidermis. There is associated human papilloma virus changes. Final Diagnosis performed by Josie Morris M.D. Electronically signed 01/29/2012 4:30:52PM [facility] Comment: Performed at: Dermatopathology Laboratory [facility] - Department of Dermatology [address] [place] [address], [address] [place] [address] Phone number: [phone] Toll Free: [phone] FAX: [phone] 01/27/2012 01/28/2012 Jonathan Navarro MD LAB - PATHOLOGY/CYTO LOGY ORDERABLES [facility] [address] [place] [address]. 5[address] Floor Lab [address] [phone] Care Teams Community Health Worker Relationship Specialty Start Date End Date Michelle Fabian APRN-CNP [address] [address] PCP - General 03/29/19
--- OUTSIDE RECORDS SUMMARY | 2024-07-04 08:54 | XMS_ITS | Referral Summary ---
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 Immunizations Immunization Administration Dates Next Due Influenza, Quadrivalent, Split, Intramuscular Influenza, Trivalent, IM (MDV) 02/25/2020 Social History Tobacco Use Types Packs/Day Years [...] on file 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 The test result will be approximately 20% lower when compared to the equimolar-standardized total PSA (Keely Montez). Comparison of serial PSA results should be interpreted with this fact in mind. This test was performed using the Siemens chemiluminescent method. Values obtained from different assay methods cannot be used interchangeably. PSA levels, regardless of value, should not be interpreted as absolute evidence of the presence or absence of disease. 08/27/2022 9:42 AM CDT 08/27/2022 9:43 AM CDT us Jose Gusman MD LAB BLOOD ORDERABLES Final Resul t [facility] [address] [place] [address] * CT Abdomen W Contrast (09/08/2012 3:30 [...] Most Recently Relevant to Health Maintenance Insurance [facility] [employer] [facility] Care Teams Perforator Operator Oil Well Relationship Specialty Start Date End Date Foster Padilla MD [address] [facility] [place] [address] PCP - General Family Medicine 04/29/22 Andre Rosales MD Referring Physician Nephrology 05/06/20
--- OUTSIDE RECORDS SUMMARY | 2024-07-04 08:54 | XMS_ITS | Patient Health Record ---
Author Organization [facility] Address [address] [place] [address] Care Team Providers Care Warehouse Distribution Manager Name Role Phone Javy Kennedy Primary Care Provider [phone] Allergies No Known Allergies Reason For Referral No Information Medications Medication SIG (Take, Route, Frequency, Duration) Notes Start Date End Date Status Lisinopril 10 MG 1 tablet Orally Once a day for 30 day(s) Active Pravastatin Sodium 20 MG 1 tablet Orally Once a day for 30 day(s) Active Atenolol 25 MG 1 tablet Orally Once a day for 30 day(s) Active Problems Problem Type SNOMED Code ICD Code Onset Dates Problem Status W/U Status Risk Notes Problem Attention deficit hyperactivity disorder, predominantly inattentive type (disorder) (16983368) Attention and concentration deficit (R41.840) Active confirmed Plan Of Treatment No Information Insurance Providers Payer Name Payer Address Payer Phone Subscriber Number Group Number Insured Name Patient Relationship to Insured Coverage Start Date Coverage End Date [facility] Claims Department [address] [facility] [place] [address] [phone] [id number] Junior Rand Self - patient is the insured 2 Medical (General) History Medical History History ICD Code HTN HLD Decreased GFR Surgical History Surgery Date(Month/Year) Hip replacement Cholecysectomy 3 back surgeries 2 knee arthroplasties Hospitalization History Reason Date(Month/Year) Kidneys
--- OUTSIDE RECORDS SUMMARY | 2024-07-04 08:54 | XMS_ITS | Encounter Summary ---
Author Organization [facility] Address [facility] [place] [address] Care Team Providers Care Electronic Sales And Service Technician Name Role Phone Bteh Chaparro DO Primary Care Provider Encounter Details Date Type Department Care Team (Late st Contact Info) Description 04/21/2024 [employer] Message Enc [facility] Family Medicine [facility] [address] [facility], [address] [place] [address] Beth Chaparro DO [address] [place], [place] [phone] blood pressure Social History Tobacco Use Types Packs/Day Years Used Date Smoking Tobacco: Former Cigarettes Passive Smoke Exposure: Never Smokeless Tobacco: Never Alcohol Use Standard Drinks/Week Comments Yes 0 (1 standard drink = 0.6 oz pur e alcohol) 1 drink weekly PHQ-2 Answer Date Recorded Patient Health Questionnaire-2 Score 0 01/03/2024 Sex and Gender Information Value Date Recorded Sex Assigned at Male 06/08/2024 10:17 AM [employer]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 Legal Sex Male 5:06 PM CDT Gender Identity Male 06/08/2024 10:17 AM 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 Sexual Orientation Not on file Occupation Industry Job Start Date Job End Date Self Employed Not on file Not on file Not on file documented as of this encounter Plan of Treatment Not on file documented as of this encounter Visit Diagnoses Not on filedocumented in this encounter Additional Health Concerns Infection Onset Date Last Indicated Resolved Time COVID-19 Rule Out 06/08/2024 06/08/2024 06/08/2024 10:49 AM [employer]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
--- OUTSIDE RECORDS SUMMARY | 2024-07-04 08:55 | XMS_ITS | Clinical Summary ---
Author Organization [facility] Address Counts include 234 beds at the [facility] [place] [address] Care Team Providers Care Batch Or Continuous Still Operator Name Role Phone Rufino Enriquez DO Primary Care Provider [phone] Allergies No known active allergies Medications omeprazole (PRILOSEC) 20 MG capsule Take 1 capsule (20 mg total) by mouth every morning. 4 Active fenofibrate 160 MG tablet 0.5 tablets (80 mg total). 4 Active Cholecalciferol (VITAMIN D3) 1000 units Cap Take 4 tablets by mouth daily. Active losartan (COZAAR) 100 MG tabletIndicatio ns:Essential hypertension, benign Take 1 tablet (100 mg total) by mouth daily. 90 tablet 1 5 Active amLODIPine (NORVASC) 10 MG tabletIndicatio ns:Essential hypertension, benign Take 1 tablet (10 mg total) by mouth nightly at bedtime. 90 tablet 1 5 Active albuterol sulfate HFA 108 (90 Base) MCG/ACT inhalerIndicati ons:Acute cough,Flu-like symptoms Inhale 1 puff into the lungs every 6 (six) hours as needed for Wheezing or Shortness of breath. 18 g 5 Active atenolol (TENORMIN) 25 MG tabletIndicatio ns:Essential hypertension, benign Take 1 tablet (25 mg total) by mouth daily. 90 tablet 1 5 Active losartan (COZAAR) 50 MG tablet Take 1 tablet (50 mg total) by mouth daily. 06/08/19 25 Discontinu ed(Reorder ) amLODIPine (NORVASC) 5 MG tablet TAKE 1 TABLET BY MOUTH NIGHTLY AT BEDTIME. 90 tablet 4 06/08/19 25 Discontinu ed(Reorder ) oseltamivir (TAMIFLU) 75 MG capsuleIndicati ons:Flu-like symptoms Take 1 capsule (75 mg total) by mouth 2 (two) times daily for 5 days. 10 capsule 5 06/13/19 25 benzonatate (TESSALON PERLES) 100 MG capsuleIndicati ons:Acute cough,Chronic kidney disease, stage 4 (severe) (CMS/HCC HHS/HCC),Atrial paroxysmal tachycardia (HHS/HCC),Essen tial hypertension, benign,THOMPSON (generalized anxiety disorder),Flu-l parul symptoms Take 1 capsule (100 mg total) by mouth 3 (three) times daily as needed for Cough. 20 capsule 5 06/15/19 25 azithromycin (ZITHROMAX Z-RIGO) 250 MG tabletIndicatio ns:Acute non-recurrent frontal sinusitis Take one table for 6 days 6 tablet 5 06/19/19 25 Active Problems Problem Noted Date Diagnosed Date Atrial paroxysmal tachycardia (HHS/HCC) 01/03/20 Osteoarthrosis 11/24/2023 Prediabetes 09/22/2023 Chronic pain of right knee 09/22/2023 Atypical chest pain 09/22/2023 Sinus bradycardia 09/22/2023 Snoring 09/22/2023 Gastroesophageal reflux disease without esophagi tis 03/29/2022 Stage 4 chronic kidney disease ([facility]/HCC HHS/HCC) 11/01/2020 Hypertriglyceridemia 06/07/2020 Essential hypertension, benign 04/01/2020 Acute renal failure 04/01/2020 Benign prostatic hyperplasia with urinary obstru ction 03/04/2020 Encounters Date Type Department Care Team Description 06/14/2024 10:20 AM RIG BUILDER HELPER Office Visit [facility] Family Medicine - [address], [address] [place] [phone] Rufino Enriquez, Congestion (Pt here for congestion and and cough symptoms been going on since last visit on 06/08/24. [facility]) 06/14/2024 Telephone [facility] [address] [facility], [address] [place] [phone] Rufino Enriquez DO Medication Information 06/14/2024 Travel 06/08/2024 10:20 AM RIG BUILDER HELPER Office Visit [facility] [address] [facility], [address] [place] [phone] Rufino Enriquez DO Congestion (Pt here for head and chest congestion symptoms started on Wednesday. [facility]) 06/08/2024 Travel 04/24/2024 Telephone [facility] [address] Pascale Jennings, PREPRESS TECHNICIAN Results 04/21/2024 10:05 AM RIG BUILDER HELPER - 04/21/2024 11:59 PM RIG BUILDER HELPER Hospital Encounter [facility] [place] [address] Oscar Huang MD Discharge Disposition: Home or Self Care (Routine Discharge) 04/21/2024 MyChart Message Enc [facility] [address] [facility], [address] [place] [address] [phone] Rufino Enriquez, blood pressure 04/21/2024 Travel 04/10/2024 Telephone [facility] [address] [facility], [address] [place] [phone] Rufino Enriquez DO Results 04/05/2024 9:00 AM RIG BUILDER HELPER Office Visit [facility], [address] [address] Oscar Huang MD Chest Pain (3-4mo); Lipids from Last 3 Months Immunizations Name Administration Dates Next Due Influenza (Generic) 02/25/2020,05/11/2013 Influenza Adult (Generic) 03/30/2022,,02/13/2020,03/04/2018,2015 Tdap (Generic) 10/07/2015,12/04/2014 Family History Medical History Relation Comments Breast Cancer Mother Hypertension Mother Relation Status Comments Mother Social History Tobacco Use Types Packs/Day Years Used Date Smoking Tobacco: Former Cigarettes Passive Smoke Exposure: Never Smokeless Tobacco: Never Tobacco Cessation:Counseling Given: Yes Alcohol Use Standard Drinks/Week Comments Yes 0 (1 standard drink = 0.6 oz pur e alcohol) 1 drink weekly PHQ-2 Answer Date Recorded Patient Health Questionnaire-2 Score 0 06/08/2024 Sex and Gender Information Value Date Recorded Sex Assigned at Male 06/08/2024 10:17 AM RIG BUILDER HELPER Legal Sex Male 5:06 PM CDT Gender Identity Male 06/08/2024 10:17 AM RIG BUILDER HELPER Sexual Orientation Not on file Occupation Industry Job Start Date Job End Date Self Employed Not on file Not on file Not on file Last Filed Vital Signs Vital Sign Reading Time Taken Comments Blood Pressure 140/80 06/14/2024 10:28 AM RIG BUILDER HELPER Pulse 101 06/14/2024 10:28 AM RIG BUILDER HELPER Temperature 36.7 C (98 F) 06/14/2024 10:28 AM RIG BUILDER HELPER Respiratory Rate 18 06/14/2024 10:28 AM RIG BUILDER HELPER Oxygen Saturation 97% 06/14/2024 10:28 AM RIG BUILDER HELPER Inhaled Oxygen Concentration - - Weight 116.1 kg (256 lb) 06/14/2024 10:28 AM RIG BUILDER HELPER Height 180.3 cm (5' 11 ) 06/14/2024 10:28 AM RIG BUILDER HELPER Body Mass Index 35.7 06/14/2024 10:28 AM RIG BUILDER HELPER Plan of Treatment Health Maintenance Due Date Last Done Comments Colorectal Cancer Screening Colonoscopy (10 Years) 1960 Pneumococcal Vaccine: 65+ Years (1 of 2 - PCV) 1964 Zoster Vaccines (1 of 2) 2008 RSV Immunization or 60+ Years (1 - Risk 60-74 years 1-dose series) 2018 Annual Medicare Wellness Visit 2023 COVID-19 Vaccine ( - season) 2023 Influenza Adult (#1) 2024 03/30/2022, 02/11/2021, 02/25/2020, Additional history exists DTaP, Tdap and Td Vaccines (3 - Td or Tdap) 10/06/2025 10/07/2015, 12/04/2014 Hepatitis C Completed 03/12/2020 AAA SCREENING Completed 01/03/2024, 05/28, 03/06/2020, Additional history exists PHQ-2 (Physician [facility]) Completed 06/08/2024 Meningococcal B Vaccine Aged Out No l onger eligible based on patient's age to complete this topic Meningococcal Vaccine Aged Out No pravin ulysses eligible based on patient's age to complete this topic RSV Immunizations Under 20 Months Aged Out No longer eligible based on patient's age to complete this topic Procedures Procedure Name Priority Date/Time Associated Diagnosis Comments CULTURE STREP A Routine 06/08/2024 10:39 AM RIG BUILDER HELPER Acute cough CORONAVIRUS (COVID-19) INFLUENZA A & B ANTIGEN IA PANEL Routine 06/08/2024 Acute cough STREP A RAPID Routine 06/08/2024 Acute cough NM PHARM NUC STRESS TEST 1DAY W TRACING Routine 04/21/2024 12:45 PM RIG BUILDER HELPER Chest pain, unspecified CARDIOLOGY STRESS TEST ONLY, EXERCISE Routine 04/21/2024 10:05 AM RIG BUILDER HELPER Chest pain, unspecified CT ABD+PEL WO CON STAT 01/03/2024 3:1 6 PM CDT CKD (chronic kidney disease) stage 4, GFR 15-29 ml/min Lymphadenopathy Right upper quadrant abdominal pain from Last 3 Months or Most Recently Relevant to Health Maintenance Results * CULTURE STREP A (MG/[facility]/SMD Only) (06/08/2024 10:39 AM RIG BUILDER HELPER) THROAT CULTURE STREP A ONLY Negative for Group A Streptococci Negative for Group A Streptococci 06/09/2024 6:25 PM RIG BUILDER HELPER [facility] STRUCTURE OF ANTERIOR PORTION OF NECK / Unknown 06/08/2024 10:39 AM RIG BUILDER HELPER Rufino Shankar DO MICROBIOLOGY - GENERAL ORDERABL ES Final Result Performing Organization Address City/[facility]/ZIP Co de Phone Number BEBE DORAN [facility] [address] [facility] [place] [address], [place] [phone] * CORONAVIRUS (COVID-19) INFLUENZA A & B ANTIGEN IA PANEL (06/08/2024) CORONAVIRUS ANTIGEN IA NEGATIVE NEGATIVE [facility] [place] [place] INFLUENZA A NEGATIVE NEGATIVE [facility] [place] [place] INFLUENZA B NEGATIVE NEGATIVE [facility] [place] [place] Internal Control: VALID VALID [facility] [place] [place] NASAL STRUCTURE / Unknown 06/08/2024 Rufino Shankar DO MICROBIOLOGY - GENERAL ORDERABL ES Final Result Performing Organization Address City/[facility] Co de Phone Number [facility] [place] [place] [address] [facility] [place] [address], [place] [phone] * STREP A RAPID (06/08/2024) RAPID STREP TEST NEGATIVE NEGATIVE [facility] [place] [place] Internal Control: VALID VALID [facility] [place] [place] STRUCTURE OF ANTERIOR PORTION OF NECK / Unknown 06/08/2024 Rufino Shankar DO MICROBIOLOGY - GENERAL ORDERABL ES Final Result Performing Organization Address City/[facility] Co de Phone Number [facility] [place] [place] [address] [facility] [address] [place] [address], [place] [phone] * NM PHARM NUC STRESS TEST 1 DAY W TRACING (04/21/2024 12:45 PM RIG BUILDER HELPER) Anatomical Region Laterality Modality Cardiac Nuclear Medicine 04/21/2024 10:1 6 AM RIG BUILDER HELPER Narrative 04/21/2024 4:43 PM RIG BUILDER HELPER Myocardial Perfusion Imaging Pat.Name: JUNIOR RAND Pat.ID: [id number] .Date: 04/21/2024 Refer.: Shankar Exam Time: 10:16:00 AM Study Type:CA NC HT MUSCLE IMAGE SPECT MULTI Height: 71 in Weight: 261 lb BSA: 2.36 m2 Age: 11 1960,64Y Sex: M Sonogrphr: KRISTY Duran Pat. Stat.:Outpatient Reason for Study:Chest pain, Shortness of breath, Left arm pain, Fatigue History / Clinical:Pre-diabetes, Hypertension, GERD, Sleep Apnea, Ex-Smoker Procedures: Nuclear Stress Test with Lexiscan Race: W Surgery: Nuclear Stress Test, Echocardiogram ++++++++++++++++++++++++++++++++++++ SUMMARY: ++++++++++++++++++++++++++++++++++++ Stress conclusion: 1. Clinically negative. 2. Electrocardiographically negative stress test for ischemia. 3. Scintigraphic images to follow. Perfusion conclusion: 1. Excellent study quality. No motion correction was applied to images. Diaphragm attenuation is noted. Prone imaging was performed. 2. Normal myocardial perfusion SPECT imaging. 3. Normal wall motion with an ejection fraction of 69%. 4. Stress test with myocardial perfusion imaging shows overall low risk for a cardiac event. ++++++++++++++++++++++++++++++++++++ FINDINGS: ++++++++++++++++++++++++++++++++++++ Protocol: Lexiscan 0.4mg was given as a rapid injection IV over a period of 10 seconds with the radiopharmaceutical injected at 20 seconds. The images were processed using the standard SPECT technique. A gated study was performed on the stress images. Impression: SPECT images demonstrate normal perfusion of normal intensity. Heart Size: The left ventricle is normal. LV Wall Motion: The LVEF is calculated to be 69%. Gated SPECT images reveal normal wall motion. Transient Ischemic Dilatation: The TID is 1.07. There is no evidence of Transient Ischemic Dilatation. ++++++++++++++++++++++++++++++++++++ STRESS: ++++++++++++++++++++++++++++++++++++ Baseline Vital Signs: ECG: Normal sinus rhythm, non-specific T changes HR: 72 bmp Rest BP: 141/73 Regadenoson Peak Dose: 0.4 mg Stress Test Results: Max HR: 95 bmp Target HR: 154 bmp % Target: 62 % Max BP: 154/76 Max RPP: [id number] O2 sat: 98 % Symptoms and Complications: Terminated: Protocol completed Symptoms: Jittery Complications: None Stress ECG Interp: Normal sinus rhythm, frequent PVCs, non-specific T changes <Electronic Signature> 04/21/2024 04:43 PM Oscar Huang M.D. Procedure Note Oscar Huang MD - 04/21/2024 Myocardial Perfusion Imaging Pat.Name: JUNIOR RAND Pat.ID: [id number] .Date: 04/21/2024 Refer.MD: Shankar Exam Time: 10:16:00 AM Study Type:CA ND HT MUSCLE IMAGE SPECT MULTI Height: 71 in Weight: 261 lb BSA: 2.36 m2 Age: 11 1960,64Y Sex: M Sonogrphr: KRISTY Duran Pat. Stat.:Outpatient Reason for Study:Chest pain, Shortness of breath, Left arm pain, Fatigue History / Clinical:Pre-diabetes, Hypertension, GERD, Sleep Apnea, Ex-Smoker Procedures: Nuclear Stress Test with Lexiscan Race: W Surgery: Nuclear Stress Test, Echocardiogram ++++++++++++++++++++++++++++++++++++ SUMMARY: ++++++++++++++++++++++++++++++++++++ Stress conclusion: 1. Clinically negative. 2. Electrocardiographically negative stress test for ischemia. 3. Scintigraphic images to follow. Perfusion conclusion: 1. Excellent study quality. No motion correction was applied to images. Diaphragm attenuation is noted. Prone imaging was performed. 2. Normal myocardial perfusion SPECT imaging. 3. Normal wall motion with an ejection fraction of 69%. 4. Stress test with myocardial perfusion imaging shows overall low risk for a cardiac event. ++++++++++++++++++++++++++++++++++++ FINDINGS: ++++++++++++++++++++++++++++++++++++ Protocol: Lexiscan 0.4mg was given as a rapid injection IV over a period of 10 seconds with the radiopharmaceutical injected at 20 seconds. The images were processed using the standard SPECT technique. A gated study was performed on the stress images. Impression: SPECT images demonstrate normal perfusion of normal intensity. Heart Size: The left ventricle is normal. LV Wall Motion: The LVEF is calculated to be 69%. Gated SPECT images reveal normal wall motion. Transient Ischemic Dilatation: The TID is 1.07. There is no evidence of Transient Ischemic Dilatation. ++++++++++++++++++++++++++++++++++++ STRESS: ++++++++++++++++++++++++++++++++++++ Baseline Vital Signs: ECG: Normal sinus rhythm, non-specific T changes HR: 72 bmp Rest BP: 141/73 Regadenoson Peak Dose: 0.4 mg Stress Test Results: Max HR: 95 bmp Target HR: 154 bmp % Target: 62 % Max BP: 154/76 Max RPP: 47553 O2 sat: 98 % Symptoms and Complications: Terminated: Protocol completed Symptoms: Jittery Complications: None Stress ECG Interp: Normal sinus rhythm, frequent PVCs, non-specific T changes <Electronic Signature> 04/21/2024 04:43 PM Oscar Huang M.D. us Oscar Huang MD NUC MED Final Res ult * CT ABD+PEL WO CON (01/03/2024 3:16 PM CDT) Anatomical Region Laterality Modality Abdomen Computed Tomogra phy 01/03/2024 3:31 PM CDT Impressions 01/03/2024 3:40 PM CDT Impression: 1. Within limitations of noncontrast technique, no etiology identified for the patient's abdominal pain. Normal appendix. Status post cholecystectomy. 2. Prominent retroperitoneal lymph nodes measuring up to 1.6 cm. Correlate with any available prior imaging and consider follow-up in 6-12 months to ensure stability. Referred By: RUFINO ENRIQUEZ Interpreted By: Hernandez Hansen MD, 01/03/2024 3:31 PM Narrative 01/03/2024 3:40 PM CDT [place] [id number] CT abdomen and pelvis without IV contrast Comparison: None available. Indication: right upper abdomein, right pain, hx of 2.6cm retroperitoneal , ckd 4. Technique: CT imaging of the abdomen and pelvis was performed without intravenous contrast. Coronal and sagittal reformatted images were generated and reviewed. Findings: Limited assessment given the lack of IV contrast, particularly of the solid organs, bowel, and vasculature. - Lower Thorax: No suspicious pulmonary abnormalities. No pleural or pericardial effusions. Mild coronary artery calcifications partially visualized. - Liver: Unremarkable noncontrast appearance. - Biliary and Gallbladder: No intrahepatic or extrahepatic bile duct dilatation. Gallbladder is surgically absent. - Spleen: Normal in size. - Pancreas: Unremarkable noncontrast appearance. - Adrenal Glands: Normal. - Kidneys: Symmetric in size. No renal stones. No hydronephrosis. Nonspecific bilateral symmetric perinephric stranding. There is a 3.1 cm inferior pole right renal simple cyst for which no additional follow-up is required. - Abdominal and Pelvic Vasculature: No abdominal aortic aneurysm. Mild atherosclerotic plaque. - Gastrointestinal Tract: No evidence of bowel obstruction. Mild colonic diverticulosis without evidence for acute diverticulitis. The appendix is identified and is within normal limits. - Peritoneum/Mesentery/Retroperitoneum: No free fluid. No free intraperitoneal air. - Lymph Nodes: Prominent retroperitoneal lymph nodes which demonstrate large fatty larissa and thin cortex, for reference left periaortic measuring 1.6 cm on axial image 55, and 1.1 cm left periaortic lymph node seen on axial image 71. - Bladder: Normal in appearance. - Pelvic Organs: Limited evaluation secondary to streak artifact from the patient's right hip arthroplasty. - Body Wall: Tiny umbilical hernia containing only fat. - Musculoskeletal: No aggressive appearing osseous lesions. Status post right hip arthroplasty. Degenerative changes lumbar spine with multilevel Schmorl's nodes. Procedure Note Hernandez Hansen MD - 01/03/2024 [place] [id number] [place] [address] CT abdomen and pelvis without IV contrast Comparison: None available. Indication: right upper abdomein, right pain, hx of 2.6cm retroperitoneal, ckd 4. Technique: CT imaging of the abdomen and pelvis was performed withoutintravenous contrast. Coronal and sagittal reformatted images weregenerated and reviewed. Findings: Limited assessment given the lack of IV contrast, particularly of thesolid organs, bowel, and vasculature. - Lower Thorax: No suspicious pulmonary abnormalities. No pleural orpericardial effusions. Mild coronary artery calcifications partiallyvisualized. - Liver: Unremarkable noncontrast appearance. - Biliary and Gallbladder: No intrahepatic or extrahepatic bile ductdilatation. Gallbladder is surgically absent. - Spleen: Normal in size. - Pancreas: Unremarkable noncontrast appearance. - Adrenal Glands: Normal. - Kidneys: Symmetric in size. No renal stones. No hydronephrosis.Nonspecific bilateral symmetric perinephric stranding. There is a 3.1 cminferior pole right renal simple cyst for which no additional follow-up isrequired. - Abdominal and Pelvic Vasculature: No abdominal aortic aneurysm. Mildatherosclerotic plaque. - Gastrointestinal Tract: No evidence of bowel obstruction. Mild colonicdiverticulosis without evidence for acute diverticulitis. The appendix isidentified and is within normal limits. - Peritoneum/Mesentery/Retroperitoneum: No free fluid. No freeintraperitoneal air. - Lymph Nodes: Prominent retroperitoneal lymph nodes which demonstratelarge fatty larissa and thin cortex, for reference left periaortic measuring1.6 cm on axial image 55, and 1.1 cm left periaortic lymph node seen onaxial image 71. - Bladder: Normal in appearance. - Pelvic Organs: Limited evaluation secondary to streak artifact from thepatient's right hip arthroplasty. - Body Wall: Tiny umbilical hernia containing only fat. - Musculoskeletal: No aggressive appearing osseous lesions. Status postright hip arthroplasty. Degenerative changes lumbar spine with multilevelSchmorl's nodes. Impression: 1. Within limitations of noncontrast technique, no etiology identifiedfor the patient's abdominal pain. Normal appendix. Status postcholecystectomy. 2. Prominent retroperitoneal lymph nodes measuring up to 1.6 cm.Correlate with any available prior imaging and consider follow-up in 6-12months to ensure stability. Referred By: RUFINO ENRIQUEZ Interpreted By: Hernandez Hansen MD, 01/03/2024 3:31 PM Rufino Enriquez DO CT Final Result from Last 3 Months or Most Recently Relevant to Health Maintenance Insurance MEDICARE Care Teams Batch Or Continuous Still Operator Relationship Specialty Start Date End Date Rufino Enriquez DO [address] [place] [id number] PCP - General FAMILY PRACTICE 09/22/23
--- OUTSIDE RECORDS SUMMARY | 2024-07-04 08:55 | XMS_ITS | Clinical Summary ---
Author Organization [facility] Address [address], [place] [address] Phone Care Team Providers Care Supervisor Pole Yard Name Role Phone Michelle Fabian NP Primary Care Provider [phone] Allergies No known active allergies Medications Medication Sig Dispensed Refills Start Date End Date Status atenolol (TENORMIN) 25 MG tablet Take 25 mg by mouth 2 (two) times a day 05/10/2020 Active famotidine (PEPCID) 20 MG tablet Take 20 mg by mouth 2 (two) times a day 07/24/2020 Active amphetamine-dextroa mphetamine (ADDERALL) 10 MG tablet dextroamphetamine-a mphetamine 10 mg tablet Active montelukast (SINGULAIR) 10 MG tablet TAKE 1 TABLET BY MOUTH EVERYDAY AT BEDTIME 10/31/2020 Active pravastatin (PRAVACHOL) 20 MG tablet pravastatin 20 mg tablet Active omeprazole (PriLOSEC) [address] capsule Take by mouth 1 (one) time each day 01/13/2022 Active fluticasone (FLONASE) 50 MCG/ACT nasal spray ADMINISTER 2 SPRAYS INTO EACH NOSTRIL 2 TIMES A DAY 01/20/2022 Active losartan (COZAAR) 25 MG tablet Take 1 tablet (25 mg total) by mouth 1 (one) time each day 30 tablet 11 01/28/2022 Active Active Problems Problem Noted Date Diagnosed Date Mixed anxiety and depressive disorder 02/11/2021 Chronic kidney disease stage 4 11/01/2020 Epigastric pain 07/25/2020 Lower urinary tract symptoms 07/24/2020 Acute kidney failure 06/07/2020 Hyperlipidemia 06/07/2020 Hyperglycemia 06/07/2020 Steatohepatitis 06/07/2020 Benign essential hypertension 04/01/2020 Benign prostatic hypertrophy with outflow obstru ction 03/04/2020 Atrial paroxysmal tachycardia 01/15/2019 Immunizations Name Administration Dates Next Due Influenza (IM) Preservative Free 05/11/2013,04/26 Influenza TIV (IM) 02/25/2020,02/25/2020 Influenza, Injectable, Quadrivalent 01/25,02/13/2020,05/06/2015,2015 Influenza, Injectable, Quadr ivalent, Preservative Free 02/11/2021,03/04/2018,03/04/2018 Tdap 10/07/2015,,12/04/2014,2014 Social History Tobacco Use Types Packs/Day Years Used Date Smoking Tobacco: Former Smokeless Tobacco: Never Alcohol Use Standard Drinks/Week Comments Not Currently 0 (1 standard drink = 0.6 oz pur e alcohol) Sex and Gender Information Value Date Recorded Sex Assigned at Not on file Gender Identity Not on file Sexual Orientation Not on file Last Filed Vital Signs Vital Sign Reading Time Taken Comments Blood Pressure 142/72 01/28/2022 11:43 AM CDT Pulse 60 01/28/2022 11:43 AM CDT Temperature 36.2 C (97.1 F) 01/28/2022 11:43 AM CDT Respiratory Rate - - Oxygen Saturation - - Inhaled Oxygen Concentration - - Weight 108 kg (238 lb) 01/28/2022 11:43 AM CDT Height 180.3 cm (5' 11 ) 01/28/2022 11:43 AM CDT Body Mass Index 33.19 01/28/2022 11:43 AM CDT Plan of Treatment Health Maintenance Due Date Last Done Comments Pneumococcal PPSV23/PCV13 65 + Years / High and Highest Risk (1 of 4 - PCV) 1966 Pneumococcal PPSV23/PCV13 65 + Years / Low and Medium Risk (1 of 4 - PCV) 2023 Influenza Vaccine (#1) 2023 , 02/25/2020, 02/25/2020, Additional history exists Care Teams Supervisor Pole Yard Relationship Specialty Start Date End Date Michelle Fabian NP [facility] [place] [address] PCP - General Internal Medicine 06/04/20
[2024-07-04 09:00] LABS: Estimated Glomerular Filt Rate 19
== END 2024-07-04 08:33 | disposition home or self-care (01) ==
PROVIDERS: Visit Provider Internal Medicine Hematology & Oncology
DX: R59.0 Localized enlarged lymph nodes (principal)
CPT/HCPCS: 71250; 74176

== ENCOUNTER 2024-07-11 14:36 | Outpatient (CLI) | payer MEDICARE, SELFPAY ==
[2024-07-11 14:47] LABS: Basophils Absolute Auto 0.1 K/mm3 (0.0-0.1); Basophils Percent Auto 0.8 % (0.2-1.2); Eosinophils Absolute Auto 0.2 K/mm3 (0-0.3); Eosinophils Percent Auto 2.3 % (0-4.4); Hematocrit 39.5 % (42.0-52.0); Hemoglobin 12.6 g/dL (14.0-18.0); Immature Granulocyte Absolute 0.04 K/mm3 (0.00-0.031); Immature Granulocyte Percent A 0.5 % (0-0.5); Lymphocytes Absolute Auto 1.82 K/mm3 (0.9-3.2); Lymphocytes Percent Auto 23.5 % (18.3-44.2); Mean Corpuscular HGB Conc 31.9 g/dl (32-36); Mean Corpuscular Hemoglobin 27.2 pg (26-34); Mean Corpuscular Volume 85.1 fl (80-100); Mean Platelet Volume 9.5 fl (7.4-10.4); Monocytes Absolute Auto 0.7 K/mm3 (0.1-0.6); Monocytes Percent Auto 9.2 % (2.6-8.5); Neutrophils Absolute Auto 4.9 K/mm3 (1.3-6.7); Neutrophils Percent Auto 63.7 % (45.5-73.1); Platelet Count Result 291 k/mm3 (150-375); Red Blood Count 4.64 M/mm3 (4.6-6.20); Red Cell Distribution Width 14.2 % (11.5-14.5); White Blood Count 7.7 K/mm3 (4.5-10.0)
[2024-07-11 14:50] LABS: Blood Urea Nitrogen 43 mg/dL (8-26); Carbon Dioxide 21 mmol/L (22-30); Chloride 111 mmol/L (98-109); Estimated Glomerular Filt Rate 20; Glucose 104 mg/dL (70-105); Ionized Calcium (POC) 1.22 mmol/L (1.11-1.31); Potassium 4.8 mmol/L (3.5-4.9); Sodium 141 mmol/L (138-146)
--- OUTSIDE RECORDS SUMMARY | 2024-07-11 16:27 | XMS_ITS | Clinical Summary ---
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 Comparison of serial PSA results should be [...] LAB BLOOD ORDERABLES Final Resul t [facility] [employer] [place] [address] [address] * CT Abdomen W Contrast (09/08/2012 3:30 [...] Most Recently Relevant to Health Maintenance Insurance [facility] Care Teams Loss Control Technician Relationship Specialty Start Date End Date Foster Padilla MD [address] [facility] [place] [address] PCP - General Family Medicine 04/29/22 Andre Rosales MD Referring Physician Nephrology 05/06/20
--- OUTSIDE RECORDS SUMMARY | 2024-07-11 16:27 | XMS_ITS | Encounter Summary ---
Author Organization [facility] Address [facility] [place] [address] Care Team Providers Care Leather Worker Name Role Phone Beth Chaparro DO Primary Care Provider [phone] Encounter Details Date Type Department Care Team (Late st Contact Info) Description 04/21/2024 [employer] Message Enc [facility] Family Medicine [facility] [address] [facility], [address] [place] [address] Beth Chaparro DO [address] [place], [place] [id number] blood pressure Social History Tobacco Use Types [...] Sex Assigned at Male 06/08/2024 10:17 AM SURGICAL AIDE Legal Sex Male 5:06 PM CDT Gender Identity Male 06/08/2024 10:17 AM SURGICAL AIDE Sexual Orientation Not on file Occupation Industry [...] Rule Out 06/08/2024 06/08/2024 06/08/2024 10:49 AM SURGICAL AIDE Assessment Noted Time PHQ-9 Depression Total Score: 0 01/03/20 1:27 PM CDT documented as of this encounter Care Teams Leather Worker Relationship Specialty Start Date End Date Beth Chaparro DO [address] [place] [address] PCP - General FAMILY PRACTICE 09/22/23 documented as of this encounter
--- OUTSIDE RECORDS SUMMARY | 2024-07-11 16:27 | XMS_ITS | Patient Health Record ---
Author Organization [facility] Address [address] [place] [address] Care Team Providers Care Saw Grinder Name Role Phone Javy Kennedy Primary Care Provider [phone] Allergies No Known Allergies Reason For Referral [...] deficit hyperactivity disorder, predominantly inattentive type (disorder) (60687329) Attention and concentration deficit (R41.840) Active confirmed Plan Of Treatment No Information Insurance Providers Payer Name Payer Address Payer Phone Subscriber Number Group Number Insured Name Patient Relationship to Insured Coverage Start Date Coverage End Date [facility] Claims Department [address] [facility] [place] [address] [phone] [id number] Junior Rand Self - patient is the insured 2 Medical (General) History Medical History History ICD Code HTN HLD Decreased GFR Surgical History Surgery Date(Month/Year) Hip replacement Cholecysectomy 3 back surgeries 2 knee arthroplasties Hospitalization History Reason Date(Month/Year) Kidneys
--- OUTSIDE RECORDS SUMMARY | 2024-07-11 16:27 | XMS_ITS | Clinical Summary ---
Author Organization [facility] Address [address], [place] [address] Phone Care Team Providers Care Digital Sales Planner Name Role Phone Michelle Fabian NP Primary Care Provider [phone] Allergies No known active allergies Medications Medication [...] 02/25/2020, 02/25/2020, Additional history exists Care Teams Digital Sales Planner Relationship Specialty Start Date End Date Michelle Fabian NP [facility] [place] [address] PCP - General Internal Medicine 06/04/20
--- OUTSIDE RECORDS SUMMARY | 2024-07-11 16:27 | XMS_ITS | Encounter Summary ---
Author Organization [facility] [email or web address] [facility] Address [address] [place] [address] Care Team Providers Care Ritual Circumciser Name Role Phone Beth Chaparro DO Primary Care Provider [phone] Reason for Visit * Reason Comments Follow Up Encounter Details Date Type Department Care Team (Late st Contact Info) Description 07/11/2024 2:45 PM CDT Office Visit [facility] Oncology and Hematology - [place] [address] 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 Gender Identity Not on file Sexual Orientation Not on file documented as of this encounter Last Filed Vital Signs Vital Sign Reading Time Taken Comments Blood Pressure 117/77 07/11/2024 2:59 PM CDT Pulse 68 07/11/2024 2:59 PM CDT Temperature 36.6 C (97.8 F) 07/11/2024 2:59 PM CDT Respiratory Rate 16 07/11/2024 2:59 PM CDT Oxygen Saturation 97% 07/11/2024 2:59 PM CDT Inhaled Oxygen Concentration - - Weight 116.2 kg (256 lb 3.2 oz) 07/11/2024 2:59 PM CDT Height - - Body Mass Index 35.73 02/16/2022 11:19 AM CDT documented in this encounter Progress Notes * Fito Guerra MD - 07/11/2024 2:55 PM CDT HEMATOLOGY / ONCOLOGY PROGRESS NOTE Patient Identification: Name: Junior Rand Age: 64 y.o. Sex: male : 1960 DIAGNOSIS Anemia of chronic kidney disease Retroperitoneal lymphadenopathy CURRENT TREATMENT Expectant TREATMENT HISTORY SUBJECTIVE Patient came into the office for follow-up visit. He denies any night sweats fever chills and weight loss. Denies any bleeding and bruising. He has gained 8 pound weight. No other new complaints. Review of system Constitutional: Patient did not mention fevers, sweats, denies any tiredness and fatigue, 8 pound weight gain HEENT: Patient did not mention sinus congestion, hearing or vision problems Respiratory: Patient did not mention cough, dyspnea, wheeze Cardiovascular: Patient did not mention chest pain, exertional chest pressure/discomfort, nausea, syncope, shortness of breath GI: Patient did not mention constipation, diarrhea, dsyphagia, reflux symptoms, vomiting, melena : Patient did not mention dysuria, frequency, incontinence, urgency Integumentary system: no lymphadenopathy, sweats, flushing Musculoskeletal: Patient not mention: myalgia, arthralgia Neurological: Patient did not mention blurry or disturbed vision, numbness/weakness, dizziness Skin: No lumps, bumps or rashes. Objective: Vital signs in last 24 hours: As per nursing note Exam: General appearance: alert, cooperative, no distress, appears stated age Head: normocephalic, without obvious abnormality, atraumatic Eyes: conjunctivae/corneas clear, EOM's intact Ears: normal external ear canals AU Nose: Nares normal. Septum midline. Mucosa normal. No drainage or sinus tenderness Throat: Lips, mucosa, and tongue normal. Teeth and gums normal Neck: supple, symmetrical, trachea midline. Lungs: clear to auscultation bilaterally Heart: regular rate and rhythm, S1, S2 normal, no murmur, click, rub or gallop Abdomen: soft, non-tender. Bowel sounds normal. No masses, No organomegaly Extremities: extremities normal, atraumatic, no cyanosis or edema Skin: Skin color, texture, turgor normal. No rashes or lesions Lymph nodes: No lymphadenopathy Neuro: No obvious focal deficit PATH LABS Labs from July 11 showed creatinine 3.2 GFR 20 hemoglobin 12.6 WBC 7.7 platelet 291,000 umunhwaews80% lymphocyte 23% @IMAGEIMP@ Assessment: Plan: Patient Active Problem List Diagnosis Date Noted Lymphadenopathy, retroperitoneal 06/04/2021 Anemia of chronic kidney disease. No need for Procrit injection. Will continue to follow-up in 6 months. I will check iron studies and vitamin B12 level on return to clinic. Chronic kidney stage IV disease. He will follow-up with Dr. Rosales. Retroperitoneal lymphadenopathy. CT scan chest abdomen pelvis done on July 04, 2024 showed no evidence of lymphadenopathy. I recommended regular exercise and weight loss. Follow-up in 6 months. ? TOBACCO COUNSELING He is not a tobacco/nicotine user. 07/11/2024 Fito Guerra MD documented in this encounter Plan of Treatment Upcoming Encounters Date Type Department Care Team (Late st Contact Info) Description 01/16/2025 2:45 PM CDT Office Visit [facility] Oncology and Hematology - [place] [address] [facility] [address] [place] [address] Fito Guerra MD [address] [place] [address] Scheduled Orders Name Type Priority Associated Diagnoses Orde r Schedule CBC WITH DIFFERENTIAL Lab Stat Chronic anemia Expected: 01/11/2025, Expires: 07/11/2025 BASIC METABOLIC PANEL Lab Stat Chronic anemia Expected: 01/11/2025, Expires: 07/11/2025 FERRITIN Lab Routine Chronic anemia Expected: 01/11/2025, Expires: 07/11/2025 IRON, TIBC, AND PERCENT SATURATION Lab Routine Chronic anemia Expected: 01/11/2025, Expires: 07/11/2025 VITAMIN B12 AND FOLATE Lab Routine Chronic anemia Expected: 01/11/2025, Expires: 07/11/2025 documented as of this encounter Visit Diagnoses Diagnosis Chronic anemia- Primary Anemia, unspecified documented in this encounter Care Teams Ritual Circumciser Relationship Specialty Start Date End Date Beth Chaparro DO [address] [facility] [address] [place] [id number] PCP - General Family Practice 07/11/24 documented as of this encounter
--- OUTSIDE RECORDS SUMMARY | 2024-07-11 16:27 | XMS_ITS | Encounter Summary ---
Author Organization [facility] [employer] [facility] Address [address] [place] [address] Care Team Providers Care Air Crew Officer Name Role Phone Michelle Fabian BRAIN Primary Care Provider [phone] Encounter Details Date Type Department Care Team (Late Contact Info) Description 07/05/2024 Orders Only [facility] Oncology and Hematology [address] [place] [address] Fito Guerra MD [facility] [address] [place] [address] Social History Tobacco Use Types Packs/Day Years Used Date Smoking Tobacco: Never Smokeless Tobacco: Never Alcohol Use Standard Drinks/Week Comments Never 0 (1 standard drink = 0.6 oz pur e alcohol) Sex and Gender Information Value Date Recorded Sex Assigned at Not on file 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 Gender Identity Not on file Sexual Orientation Not on file documented as of this encounter Plan of Treatment Upcoming Encounters Date Type Department Care Team (Late st Contact Info) Description 01/16/2025 2:45 PM CDT Office Visit [facility] Oncology and Hematology [address] [place] [address] Fito Guerra MD [facility] [address] [place] [address] documented as of this encounter Procedures Procedure Name Priority Date/Time Associated Diagnosis Comments CT CHEST ABDOMEN PELVIS WO CONT Routine 07/04/2024 8:55 AM CDT documented in this encounter Results * CT CHEST ABDOMEN PELVIS WO CONT (07/04/2024 8:55 AM CDT) Anatomical Region Laterality Modality Chest Other Fito Guerra MD CT ORDERABLES Final Result documented in this encounter Visit Diagnoses Not on filedocumented in this encounter Care Teams Air Crew Officer Relationship Specialty Start Date End Date Michelle Fabian ANP [address] [address] PCP - General Nurse Practitioner Adult Health 06/04/21 07/10/24 documented as of this encounter
--- OUTSIDE RECORDS SUMMARY | 2024-07-11 16:27 | XMS_ITS | Referral Summary ---
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 The test result will be approximately 20% lower when compared to the equimolar-standardized total PSA (Keely [place]). Comparison of serial PSA results should be [...] LAB BLOOD ORDERABLES Final Resul t [facility] [employer] [address] [place] [address] * CT Abdomen W Contrast (09/08/2012 3:30 [...] Most Recently Relevant to Health Maintenance Insurance [facility] Care Teams Mud Mixer Operator Relationship Specialty Start Date End Date Foster Padilla MD [address] [facility] [place] [address] PCP - General Family Medicine 04/29/22 Andre Rosales MD Referring Physician Nephrology 05/06/20
--- OUTSIDE RECORDS SUMMARY | 2024-07-11 16:27 | XMS_ITS | Clinical Summary ---
Author Organization [facility] Address [facility] [place] [address] Care Team Providers Care Refrigeration Mechanic Name Role Phone Rufino Enriquez DO Primary Care Provider [phone] Allergies No known active allergies Medications omeprazole (PRILOSEC) 20 MG capsule Take 1 capsule (20 mg total) by mouth every morning. 09/16/19 24 Active fenofibrate 160 MG tablet 0.5 tablets (80 mg total). 06/21/19 24 Active Cholecalciferol (VITAMIN D3) 1000 units Cap Take 4 tablets by mouth daily. Active losartan (COZAAR) 100 MG tabletIndicatio ns:Essential hypertension, benign Take 1 tablet (100 mg total) by mouth daily. 90 tablet 1 06/08/19 25 Active amLODIPine (NORVASC) 10 MG tabletIndicatio ns:Essential hypertension, benign Take 1 tablet (10 mg total) by mouth nightly at bedtime. 90 tablet 1 06/08/19 25 Active atenolol (TENORMIN) 25 MG tabletIndicatio ns:Essential hypertension, benign Take 1 tablet (25 mg total) by mouth daily. 90 tablet 1 06/14/19 25 Active albuterol sulfate HFA 108 (90 Base) MCG/ACT inhalerIndicati ons:Acute cough,Flu-like symptoms INHALE 1 PUFF INTO THE LUNGS EVERY 6 HOURS NEEDED FOR WHEEZING OR SHORTNESS OF BREATH. 18 g 07/06/19 25 Active oseltamivir (TAMIFLU) 75 MG capsuleIndicati ons:Flu-like symptoms Take 1 capsule (75 mg total) by mouth 2 (two) times daily for 5 days. 10 capsule 06/08/19 25 025 albuterol sulfate HFA 108 (90 Base) MCG/ACT inhalerIndicati ons:Acute cough,Flu-like symptoms Inhale 1 puff into the lungs every 6 (six) hours as needed for Wheezing or Shortness of breath. 18 g 06/08/19 25 025 Discontinued benzonatate (TESSALON PERLES) 100 MG capsuleIndicati ons:Acute cough,Chronic kidney disease, stage 4 (severe) ([facility]),Atrial paroxysmal tachycardia ([facility]),Essen tial hypertension, benign,THOMPSON (generalized anxiety disorder),Flu-l parul symptoms Take 1 capsule (100 mg total) by mouth 3 (three) times daily as needed for Cough. 20 capsule 06/08/19 25 025 azithromycin (ZITHROMAX Z-RIGO) 250 MG tabletIndicatio ns:Acute non-recurrent frontal sinusitis Take one table for 6 days 6 tablet 06/14/19 25 025 Active Problems Problem Noted Date Diagnosed Date Atrial paroxysmal tachycardia ([facility]) 01/03/20 Osteoarthrosis 11/24/2023 Prediabetes 09/22/2023 Chronic pain of right knee 09/22/2023 Atypical chest pain 09/22/2023 Sinus bradycardia 09/22/2023 Snoring 09/22/2023 Gastroesophageal reflux disease without esophagi tis 03/29/2022 Stage 4 chronic kidney disease ([facility]) 11/01/2020 Hypertriglyceridemia 06/07/2020 Essential hypertension, benign 04/01/2020 Acute renal failure 04/01/2020 Benign prostatic hyperplasia with urinary obstru ction 03/04/2020 Encounters Date Type Department Care Team Description 06/14/2024 10:20 AM EQUIPMENT OPERAT0R Office Visit [facility] Family Medicine - [address], [address] [place] [address] Rufino Enriquez DO Congestion (Pt here for congestion and and cough symptoms been going on since last visit on 06/08/24. [facility]) 06/14/2024 Telephone [facility] [address], [address] [place] [phone] Rufino Enriquez DO Medication Information 06/14/2024 Travel 06/08/2024 10:20 AM EQUIPMENT OPERAT0R Office Visit [facility] [address], [address] [place] [phone] Rufino Enriquez DO Congestion (Pt here for head and chest congestion symptoms started on Wednesday. [facility] lab) 06/08/2024 Travel 04/24/2024 Telephone [facility], [address] [address] Pascale Jennings, WASTE EXAMINER Results 04/21/2024 10:05 AM EQUIPMENT OPERAT0R - 04/21/2024 11:59 PM EQUIPMENT OPERAT0R Hospital Encounter [facility] [place] [address] Oscar Huang MD Discharge Disposition: Home or Self Care (Routine Discharge) 04/21/2024 MyChart Message Enc [facility] [address], [address] [place] [phone] Rufino Enriquez DO blood pressure 04/21/2024 Travel from Last 3 Months Immunizations Name Administration [...] Sex Assigned at Male 06/08/2024 10:17 AM EQUIPMENT OPERAT0R Legal Sex Male 5:06 PM CDT Gender Identity Male 06/08/2024 10:17 AM EQUIPMENT OPERAT0R Sexual Orientation Not on file Occupation Industry Job Start Date Job End Date Self Employed Not on file Not on file Not on file Last Filed Vital Signs Vital Sign Reading Time Taken Comments Blood Pressure 140/80 06/14/2024 10:28 AM EQUIPMENT OPERAT0R Pulse 101 06/14/2024 10:28 AM EQUIPMENT OPERAT0R Temperature 36.7 C (98 F) 06/14/2024 10:28 AM EQUIPMENT OPERAT0R Respiratory Rate 18 06/14/2024 10:28 AM EQUIPMENT OPERAT0R Oxygen Saturation 97% 06/14/2024 10:28 AM EQUIPMENT OPERAT0R Inhaled Oxygen Concentration - - Weight 116.1 kg (256 lb) 06/14/2024 10:28 AM EQUIPMENT OPERAT0R Height 180.3 cm (5' 11 ) 06/14/2024 10:28 AM EQUIPMENT OPERAT0R Body Mass Index 35.7 06/14/2024 10:28 AM EQUIPMENT OPERAT0R Plan of Treatment Health Maintenance Due Date [...] 05/28, 03/06/2020, Additional history exists PHQ-2 (Physician [place]) Completed 06/08/2024 Meningococcal B Vaccine Aged Out [...] CULTURE STREP A Routine 06/08/2024 10:39 AM EQUIPMENT OPERAT0R Acute cough CORONAVIRUS (COVID-19) INFLUENZA A & B ANTIGEN IA PANEL Routine 06/08/2024 Acute cough STREP A RAPID Routine 06/08/2024 Acute cough NM PHARM NUC STRESS TEST 1DAY W TRACING Routine 04/21/2024 12:45 PM EQUIPMENT OPERAT0R Chest pain, unspecified CARDIOLOGY STRESS TEST ONLY, EXERCISE Routine 04/21/2024 10:05 AM EQUIPMENT OPERAT0R Chest pain, unspecified CT ABD+PEL WO CON STAT 01/03/2024 3:1 6 PM CDT CKD (chronic kidney disease) stage 4, GFR 15-29 ml/min Lymphadenopathy Right upper quadrant abdominal pain from Last 3 Months or Most Recently Relevant to Health Maintenance Results * CULTURE STREP A (MG/SJS/SMD Only) (06/08/2024 10:39 AM EQUIPMENT OPERAT0R) THROAT CULTURE STREP A ONLY Negative for Group A Streptococci Negative for Group A Streptococci 06/09/2024 6:25 PM EQUIPMENT OPERAT0R [facility] STRUCTURE OF ANTERIOR PORTION OF NECK / Unknown 06/08/2024 10:39 AM EQUIPMENT OPERAT0R us Rufino Shankar DO MICROBIOLOGY - GENERAL ORDERABL ES Final Result [facility] [address] [place] [address], [place] [phone] * CORONAVIRUS (COVID-19) INFLUENZA A & B ANTIGEN IA PANEL (06/08/2024) CORONAVIRUS ANTIGEN IA NEGATIVE NEGATIVE [facility] [place] [place] INFLUENZA A NEGATIVE NEGATIVE [facility] [place] [place] INFLUENZA B NEGATIVE NEGATIVE [facility] [place] [place] Internal Control: VALID VALID [facility] [place] [place] NASAL STRUCTURE / Unknown 06/08/2024 Rufino Shankar DO MICROBIOLOGY - GENERAL ORDERABL ES Final Result [facility] [place] [place] [address] [place] [address], [place] [phone] * STREP A RAPID (06/08/2024) RAPID STREP TEST NEGATIVE NEGATIVE [facility] [place] [place] Internal Control: VALID VALID [facility] [place] [place] STRUCTURE OF ANTERIOR PORTION OF NECK / Unknown 06/08/2024 Rufino Shankar DO MICROBIOLOGY - GENERAL ORDERABL ES Final Result Performing Organization Address City/[facility] Co de Phone Number [facility] [place], [place] [address] [facility] [address] [address] [place] [address], [place] [phone] * NM PHARM NUC STRESS TEST 1 DAY W TRACING (04/21/2024 12:45 PM EQUIPMENT OPERAT0R) Anatomical Region Laterality Modality Cardiac Nuclear Medicine 04/21/2024 10:1 6 AM EQUIPMENT OPERAT0R Narrative 04/21/2024 4:43 PM EQUIPMENT OPERAT0R Myocardial Perfusion Imaging Pat.Name: JUNIOR RAND Pat.ID: [id number] St.Date: 04/21/2024 Refer.: Shankar Exam Time: 10:16:00 AM [...] 62 % Max BP: 154/76 Max RPP: [id number] O2 sat: 98 % Symptoms and Complications: Terminated: Protocol completed Symptoms: Jittery Complications: None Stress ECG Interp: Normal sinus rhythm, frequent PVCs, non-specific T changes <Electronic Signature> 04/21/2024 04:43 PM Oscar Huang M.D. Procedure Note Oscar Huang MD - 04/21/2024 Myocardial Perfusion Imaging Pat.Name: JUNIOR RAND Pat.ID: [id number] St.Date: 04/21/2024 Refer.MD: Shankar Exam Time: 10:16:00 AM [...] 62 % Max BP: 154/76 Max RPP: [id number] O2 sat: 98 % Symptoms and Complications: Terminated: Protocol completed Symptoms: Jittery Complications: None Stress ECG Interp: Normal sinus rhythm, frequent PVCs, non-specific T changes <Electronic Signature> 04/21/2024 04:43 PM Oscar Huang M.D. Oscar Huang MD NUC MED Final Res [...] 3:31 PM Narrative 01/03/2024 3:40 PM CDT [address] [address] [address] abdomen and pelvis without IV contrast [...] Procedure Note Hernandez Hansen MD - 01/03/2024 [address] [place] [address] CT abdomen and pelvis without IV contrast [...] to Health Maintenance Insurance MEDICARE Care Teams Refrigeration Mechanic Relationship Specialty Start Date End Date Rufino Enriquez DO [address] [place] [id number] PCP - General FAMILY PRACTICE 09/22/23
--- OUTSIDE RECORDS SUMMARY | 2024-07-11 16:27 | XMS_ITS | CONTINUITY OF CARE DOCUMENT ---
Author Name ilan talavera Address Unknown Organization [facility] Address [address] [place] [address] Phone [phone] Care Team Providers Care Pcu Rn Name Role Phone Waldo Caicedo MD Unavailable JAMAR HOOPER Unavailable JAMAR HOOPER Unavailable PROBLEMS Condition Status Date Provider Notes Cardiology examination active Waldo Caicedo MD Family History of Hypertension: active Emilia Caicedo MD Palpitations active Waldo Caicedo MD PAT active Waldo Caicedo MD ENCOUNTERS Date Type Provider Location Encounter Diag nosis - In-person encounter Office Visit Waldo Caicedo MD [place] - In-person encounter Office Visit Waldo Caicedo MD [facility] Cardiology examinationFamily History of Hypertension:Palpitation sPAT [...] required Maegan Tucker number of grandchildren Waldo Caciedo MD U laila Caicedo MD drug use, [...] Policy type / Coverage type [place] red democrat [place] (2) Medicaid [id number] ADVANCE DIRECTIVES Name Date POWER OF SLATE SPLITTING SUPERVISOR TREATMENT PLAN Date Name Performer Cardiology:Continue atenolol. [...]
--- OUTSIDE RECORDS SUMMARY | 2024-07-11 16:27 | XMS_ITS | Clinical Summary ---
Author Organization [facility] Rashard Bhatti Address [address] [place] [address] Care Team Providers Care Hot Die Press Feeder Name Role Phone Beth Chaparro DO Primary Care Provider Allergies No known active allergies Medications atenoloL (TENORMIN) 25 mg tablet Take by mouth 2 times daily. 9 Active omeprazole (PriLOSEC) 20 mg Capsule, Delayed Release(E.C.) Take by mouth. 9 Active fenofibrate (LOFIBRA) 54 mg 54 mg by See Admin Instructions route daily. 3 Active losartan (COZAAR) 100 mg tablet Take 100 mg by mouth daily. 5 Active CHOLECALCIFEROL , VITAMIN D3, ORAL Take by mouth daily. Active Active Problems Problem Noted Date Diagnosed Date Lymphadenopathy, retroperitoneal 06/04/2021 Encounters Date Type Department Care Team Description 07/11/2024 2:45 PM CDT Office Visit [facility] Oncology and Hematology - [address] [place] [address] Fito Guerra MD Chronic anemia (Primary Dx) 07/07/2024 Orders Only [facility] Oncology and Hematology - Sandeep [address] [facility] [place] [address] Fito Guerra MD Lymphadenopathy, retroperitoneal (Primary Dx) 07/05/2024 Orders Only [facility] Oncology and Hematology - [address] [place] [address] Fito Guerra MD 05/24/2024 External Device Data STL ABSTRACTION Provider, [...] on file 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 Gender Identity Not on file Sexual Orientation [...] 3.2 oz) 07/11/2024 2:59 PM CDT Height 180.3 cm (5' 11 ) 02/16/2022 11: 19 AM CDT Body Mass Index 35.73 02/16/2022 11:19 AM CDT Plan of Treatment Upcoming Encounters Date Type Department Care Team (Late st Contact Info) Description 01/16/2025 2:45 PM CDT Office Visit [facility] Oncology and Hematology - [address] [facility] [address] [place] [address] Fito Guerra MD [address] [facility] [address] [place] [address] Health Maintenance Due Date Last [...] - Risk 60-74 years 1-dose series) 2018 Preventative Visit-Managed Medicaid 11/11/2023 11/09/2022 INFLUENZA VACCINE (#1) 2023 2, 02/11/2021, 02/25/2020, Additional history exists DTAP/TDAP/TD VACCINES (3 - T d or Tdap) 10/06/2025 10/07/2015, 12/04/2014 Procedures Procedure Name Priority Date/Time Associated Diagnosis Comments CT CHEST ABDOMEN PELVIS WO CONT Routine 07/04/2024 8:55 AM CDT from Last 3 Months Results * CT CHEST ABDOMEN PELVIS WO CONT (07/04/2024 8:55 AM CDT) Anatomical Region Laterality Modality Chest Other Fito Guerra MD CT ORDERABLES Final Result from Last 3 Months Insurance [facility] MEDICAID Care Teams Hot Die Press Feeder Relationship Specialty Start Date End Date Beth Chaparro DO [address] [facility] [address] [place] [phone] PCP - General Family Practice 07/11/24
--- OUTSIDE RECORDS SUMMARY | 2024-07-11 16:27 | XMS_ITS | Clinical Summary ---
Author Organization [facility] Address [address] [place] [address] Care Team Providers Care Inspector Optical Instrument Name Role Phone Elliscesar Michelle JARAD-CARRIAGE SETTER Primary Care Provider + Source Comments [facility],non-owned Affiliates and Associated Physician Practices is amultiple site organization consisting of ambulatory clinics and hospital sitesin [place], [place], [place] and [place]. This disclosure is being madepursuant to the Care Everywhere program and may not contain all information available regarding this patient. Last updated 18.[facility] Allergies No known active allergies Medications * [...] Comments Blood Pressure 151/90 04/09/2020 10:46 AM SHREDDING MACHINE OPERATOR Pulse 74 04/09/2020 10:46 AM SHREDDING MACHINE OPERATOR Temperature 36.1 C (97 F) 04/09/2020 10:46 AM SHREDDING MACHINE OPERATOR Respiratory Rate 18 04/09/2020 10:4 6 AM SHREDDING MACHINE OPERATOR Oxygen Saturation 99% 04/09/2020 10: 46 AM SHREDDING MACHINE OPERATOR Inhaled Oxygen Concentration - - Weight 107.2 kg (236 lb 6.4 oz) 020 10:46 AM SHREDDING MACHINE OPERATOR Height 180.3 cm (5' 11 ) 04/09/2020 10: 46 AM SHREDDING MACHINE OPERATOR Body Mass Index 32.97 04/09/2020 10:46 AM SHREDDING MACHINE OPERATOR Plan of Treatment Health Maintenance Due Date [...] Additional history exists COVID-19 VACCINE ( - season) 2023 INFLUENZA VACCINE (#1) 2023 0, [...] complete this topic MENINGOCOCCAL (Group B) VACCINE SHARED DECISION-MAKING Aged Out No longer eligible based on patient's age to complete this topic MENINGOCOCCAL GROUPS A/C/Y/W VACCINE Aged Out No longer eligible based on patient's age to complete this topic Medical Devices Implanted Type Area Wet Wash Assembler Device Identifier Shelf Expiration Date Model / Serial / Lot Kit Nima Drflw Embosafe Chrnc Dlys Implanted:Qty: 1 on 03/07/2020 at [facility] [employer] 03/25/2022 [id number] / / [id number] Procedures Procedure Name Priority Date/Time Associated Diagnosis Comments RENAL FUNCTION PANEL Routine 04/15/2020 12:54 PM SHREDDING MACHINE OPERATOR Acute kidney injury (HCC) HEPATITIS C AB SCREEN RFLX NAAT QUANT Routine 03/12/2020 1:33 PM SHREDDING MACHINE OPERATOR from Last 3 Months or Most Recently Relevant to Health Maintenance Results * (ABNORMAL) RENAL FUNCTION PANEL (04/15/2020 12:54 PM SHREDDING MACHINE OPERATOR) Glucose 96 65 - 99 mg/dL [facility] Comment: Fasting reference interval BUN 58(H) 7 - 25 mg/dL [facility] Creatinine 7.29(H) 0.70 - 1.25 mg/dL [facility] Comment: For patients >49 years of age, the reference limit for Creatinine is approximately 13% higher for people identified as -Afghan. eGFR by MDRD 7(L) > OR = [...] 5.1 g/dL [facility] Comment: Test Performed at: [facility] [address] [place] [address] HAMLET LAU DO,MPH Blood BLOOD SPECIMEN / Unknown 04/15/2020 12:54 PM SHREDDING MACHINE OPERATOR 04/15/2020 12:56 PM SHREDDING MACHINE OPERATOR Jermaine Yost MD LAB - CHEMISTRY YAW SIDDIQUI Performing Organization Address [facility] Co de Phone Number [facility] [address] [place] [phone] * HEPATITIS C AB SCREEN RFLX NAAT QUANT (03/12/2020 1:33 PM SHREDDING MACHINE OPERATOR) Hepatitis C Antibody Non-react viji Non-reac tividhya 03/12/2020 2:53 PM SHREDDING MACHINE OPERATOR [facility] Comment:Hepatitis C Antibody screen [...] Lab Venipuncture / Unknown 03/12/2020 1:33 PM SHREDDING MACHINE OPERATOR 03/12/2020 2:53 PM SHREDDING MACHINE OPERATOR Jose Garcia MD LAB - CHEMISTRY YAW SIDDIQUI [facility] [address] [place] [address], [place] [phone] from Last 3 Months or Most Recently Relevant to Health Maintenance Advance Directives * Full Code (Latest Code Status on File) Date Activated Date Inactivated Comments 03/04/2020 4:49 PM 03/16/2020 4:19 PM Care Teams Inspector Optical Instrument Relationship Specialty Start Date End Date Michelle Fabian APRN-MIHAI [address] [address] PCP - General 03/29/19
== END 2024-07-11 14:37 | disposition home or self-care (01) ==
LOC: ANHLAB 14:37
PROVIDERS: Visit Provider Internal Medicine Hematology & Oncology
DX: R59.0 Localized enlarged lymph nodes (principal)
CPT/HCPCS: 36415; 80047; 85025

== ENCOUNTER 2024-12-21 15:00 | Outpatient (CLI) | payer MEDICARE, SELFPAY ==
--- OUTSIDE RECORDS SUMMARY | 2024-12-21 15:06 | XMS_ITS | Clinical Summary ---
Author Organization [facility] Address [address] [place] [address] Care Team Providers Care Religion Instructor Name Role Phone Michelle Fabian JARAD-CLINICAL PHYSICIAN ASSISTANT Primary Care Provider + Source Comments [facility],non-owned Affiliates and Associated Physician Practices is amultiple site organization consisting of ambulatory clinics and hospital sitesin [place], [place], [place] and [place]. This disclosure is being madepursuant to the Care Everywhere program and may not contain all information available regarding this patient. Last updated 18.[facility] Allergies No known active allergies Medications * Be aware that medications may not be up to date on this document. Alwaysverify current medications with the patient. atenolol (TENORMIN) 25 MG tablet Take 25 mg by mouth 2 times daily 5 Active omeprazole (PRILOSEC) 20 MG capsule Take 20 mg by mouth as needed 0 Active ferrous sulfate 325 (65 FE) MG tabletIndicatio ns:Iron Deficiency Anemia Take 1 tablet by mouth once daily Reasons: Anemia From Inadequate Iron in the Body 100 tablet 4 0 Active neomycin-bacitr acin-polymyxin (NEOSPORIN) 400-5-5000 topical ointment Apply to affected area 3 times daily Affected area: opening of your urethra 30 g 2 0 Active Additional Information Patient not taking.Reported on 04/09/2020 cephalexin (KEFLEX) 500 MG tablet Take 1 (one) tablet by mouth 2 times daily 14 tablet 1 Active Active Problems Problem Noted Date Diagnosed [...] at Not on file Legal Sex Male 11:49 AM CDT Gender Identity Not on file Sexual Orientation Not on file 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 Not on file Not on file Last Filed Vital Signs Vital Sign Reading Time Taken Comments Blood Pressure 151/90 04/09/2020 10:46 AM CHIN STRAP MAKER Pulse 74 04/09/2020 10:46 AM CHIN STRAP MAKER Temperature 36.1 C (97 F) 04/09/2020 10:46 AM CHIN STRAP MAKER Respiratory Rate 18 04/09/2020 10:4 6 AM CHIN STRAP MAKER Oxygen Saturation 99% 04/09/2020 10: 46 AM CHIN STRAP MAKER Inhaled Oxygen Concentration - - Weight 107.2 kg (236 lb 6.4 oz) 020 10:46 AM CHIN STRAP MAKER Height 180.3 cm (5' 11) 04/09/2020 10: 46 AM CHIN STRAP MAKER Body Mass Index 32.97 04/09/2020 10:46 AM CHIN STRAP MAKER Plan of Treatment Health Maintenance Due Date Last Done Comments COLOGUARD (AGES 45-75) - COLON CA SCREENING [address] COLONOGRAPHY - COLON CA SCREENING [...] exists COVID-19 VACCINE ( - season) 2023 DEPRESSION SCREENING 04/26/2024 INFLUENZA VACCINE (#1) 2024 0, 02/13/2020, 03/04/2018, Additional history exists COLON MONITORING 09/09/2028 09/09/2018 COLONOSCOPY - COLON CA SCREENING 09/09/2028 09/09/2018 [...] this topic Medical Devices Implanted Type Area Customer Support Professional Device Identifier Shelf Expiration Date Model / Serial / Lot Kit Nima Drflw Embosafe Chrnc Dlys Implanted:Qty: 1 on 03/07/2020 at [facility] [employer] 03/25/2022 [id number] / / [id number] Procedures Procedure Name Priority Date/Time Associated Diagnosis Comments RENAL FUNCTION PANEL Routine 04/15/2020 12:54 PM CHIN STRAP MAKER Acute kidney injury HEPATITIS C AB SCREEN RFLX NAAT QUANT Routine 03/12/2020 1:33 PM CHIN STRAP MAKER from Last 3 Months or Most Recently Relevant to Health Maintenance Results * (ABNORMAL) RENAL FUNCTION PANEL (04/15/2020 12:54 PM CHIN STRAP MAKER) Pathologist [facility] Glucose 96 65 - 99 mg/dL [facility] Comment: Fasting reference interval BUN 58(H) 7 - 25 mg/dL [facility] Creatinine 7.29(H) 0.70 - 1.25 mg/dL [facility] Comment: For patients >49 years of age, the reference limit for Creatinine is approximately 13% higher for people identified as -Senegalese. eGFR by MDRD 7(L) > OR = [...] 5.1 g/dL [facility] Comment: Test Performed at: [facility] [address] [place] [address] HAMLET LAU DO,MPH Blood BLOOD SPECIMEN / Unknown 04/15/2020 12:54 PM CHIN STRAP MAKER 04/15/2020 12:56 PM CHIN STRAP MAKER Jermaine Yost MD LAB - CHEMISTRY ORDERABLES Final Result [facility] [address] [place] [address] * HEPATITIS C AB SCREEN RFLX NAAT QUANT (03/12/2020 1:33 PM CHIN STRAP MAKER) Pathologist [facility] Hepatitis C Antibody Non-react viji Non-reac tive 03/12/2020 2:53 PM CHIN STRAP MAKER [facility] Comment:Hepatitis C Antibody [...] Lab Venipuncture / Unknown 03/12/2020 1:33 PM CHIN STRAP MAKER 03/12/2020 2:53 PM CHIN STRAP MAKER us Jose Garcia MD LAB - CHEMISTRY ORDERABLES F inal Result [facility] [address] [place] [address], [place] [phone] from Last 3 Months or Most Recently Relevant to Health Maintenance Insurance [facility] Advance Directives * Full Code (Latest Code Status on File) Date Activated Date Inactivated Comments 03/04/2020 4:49 PM 03/16/2020 4:19 PM Care Teams Religion Instructor Relationship Specialty Start Date End Date Michelle Fabian APRN-CNP [address] [phone] PCP - General 03/29/19
--- OUTSIDE RECORDS SUMMARY | 2024-12-21 15:06 | XMS_ITS | Encounter Summary ---
Author Organization [facility] Address [address] [place] [address] Care Team Providers Care Wanigan Clerk Name Role Phone Beth Chaparro DO Primary Care Provider [phone] Reason for Visit * Reason Onset Date Comments Pre-visit Gap Closure 12/20/2024 Encounter Details Date Type Department Care Team (Late st Contact Info) Description 12/20/2024 Patient Outreach [facility] [address] [place] [id number] Kika Pulliam LPN Pre-visit Gap Closure Social History Tobacco Use Types Packs/Day Years Used Date Smoking Tobacco: Former Cigarettes Passive Smoke Exposure: Never Smokeless Tobacco: Never Alcohol Use Standard Drinks/Week Comments Yes 0 (1 standard drink = 0.6 oz pur e alcohol) 1 drink weekly PHQ-2 Answer Date Recorded Patient Health Questionnaire-2 Score 0 06/08/2024 Sex and Gender Information Value Date Recorded Sex Assigned at Male 06/08/2024 10:17 AM EMISSION TECHNICIAN Legal Sex Male 5:06 PM CDT Gender Identity Male 06/08/2024 10:17 AM EMISSION TECHNICIAN Sexual Orientation Not on file Occupation Industry Job Start Date Job End Date Self Employed Not on file Not on file Not on file documented as of this encounter Progress Notes * Kika Pulliam LPN - 12/20/2024 2:56 PM CDT I am a patient quality advocate calling this patient on behalf of the virtual stand work team to assess the below quality gaps. If you need to contact me directly- my number is [phone]. Preventive Screenings: Colorectal Cancer Screening: Needs Follow Up Notes: documented in this encounter Plan of Treatment Not on file documented as of this encounter Visit Diagnoses Not on filedocumented in this encounter Additional Health Concerns Assessment Noted Time PHQ-9 Depression Total Score: 0 06/08/19 25 10:25 AM EMISSION TECHNICIAN documented as of this encounter Care Teams Wanigan Clerk Relationship Specialty Start Date End Date Beth Chaparro DO [address] [place] [address] PCP - General FAMILY PRACTICE 09/22/23 documented as of this encounter
--- OUTSIDE RECORDS SUMMARY | 2024-12-21 15:06 | XMS_ITS | Clinical Summary ---
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 Gender Identity Not on file Sexual Orientation [...] 2:59 PM CDT Height 180.3 cm (5' 11) 02/16/2022 11: 19 AM CDT Body Mass Index 35.73 02/16/2022 11:19 AM CDT Plan of Treatment Upcoming Encounters Date Type Department Care Team (Late st Contact Info) Description 01/16/2025 2:45 PM CDT Office Visit [facility] Oncology and Hematology - [place] [address] [facility] [address] [place] [address] Fito Guerra MD [address] [facility] [address] [place] [address] Health Maintenance Due Date Last [...] years 1-dose series) 2018 INFLUENZA VACCINE (#1) 2024 2, 02/11/2021, 02/25/2020, Additional history exists DTAP/TDAP/TD VACCINES (3 - T d or Tdap) 10/06/2025 10/07/2015, 12/04/2014 Insurance MEDICARE PART A AND B Care Teams Licensed Dispensing Optician Relationship Specialty Start Date End Date Beth Chaparro DO [address] [place] [address] PCP - General Family Practice 07/11/24
--- OUTSIDE RECORDS SUMMARY | 2024-12-21 15:06 | XMS_ITS | Clinical Summary ---
Author Organization [facility] Address [address] [place] [address] Care Team Providers Care Sap Business Analyst Name Role Phone Andre Rosales MD Unavailable [phone] Foster Padilla MD Primary Care Provider [phone] Allergies No known active allergies Medications atenoloL [...] (08/21/2020): Added automatically from request for surgery [id number] Lower urinary tract symptoms (LUTS) 07/24/2020 Stricture [...] on file Legal Sex Male 3:22 AM HEAD OF INSIGHT Gender Identity Not on file Sexual Orientation [...] 9:44 AM CDT Height 180.3 cm (5' 11) 08/04/2022 9:44 AM CDT Body Mass Index [...] Screen 2023 09/08/2012 Well Visit 65+ 2023 Prostate Cancer Screening-PSA 08/27/2024 08/27/2022, 05/06/2020 Influenza Vaccine (#1) 2024 2, 02/11/2021, 02/25/2020, Additional history exists Procedures Procedure Name Priority Date/Time Associated Diagnosis [...] compared to the equimolar-standardized total PSA (Keely Phoenix). Comparison of serial PSA results should be [...] LAB BLOOD ORDERABLES Final Resul t [facility] [employer] [place] [id number] [place] [phone] * CT Abdomen W Contrast (09/08/2012 3:30 [...] Most Recently Relevant to Health Maintenance Insurance [facility] Care Teams Sap Business Analyst Relationship Specialty Start Date End Date Foster Padilla MD [address] [facility] [place] [address] PCP - General Family Medicine 04/29/22 Andre Rosales MD Referring Physician Nephrology 05/06/20
--- OUTSIDE RECORDS SUMMARY | 2024-12-21 15:06 | XMS_ITS | Encounter Summary ---
Author Organization [facility] Address [facility] [place] [address] Care Team Providers Care Wire Bound Box Machine Operator Name Role Phone Beth Chaparro DO Primary Care Provider [phone] Encounter Details Date Type Department Care Team (Late st Contact Info) Description 04/21/2024 Fleck Message Enc [facility] Family Medicine [facility] [address] [facility], [address] [place] [address] Beth Chaparro DO [address] [place], [place] [id number] blood pressure Social History Tobacco Use Types [...] Sex Assigned at Male 06/08/2024 10:17 AM MONEY MARKET DEALER Legal Sex Male 5:06 PM CDT Gender Identity Male 06/08/2024 10:17 AM MONEY MARKET DEALER Sexual Orientation Not on file Occupation Industry [...] Rule Out 06/08/2024 06/08/2024 06/08/2024 10:49 AM MONEY MARKET DEALER Assessment Noted Time PHQ-9 Depression Total Score: 0 01/03/20 1:27 PM CDT documented as of this encounter Care Teams Wire Bound Box Machine Operator Relationship Specialty Start Date End Date Beth Chaparro DO [address] [place] [address] PCP - General FAMILY PRACTICE 09/22/23 documented as of this encounter
--- OUTSIDE RECORDS SUMMARY | 2024-12-21 15:06 | XMS_ITS | Encounter Summary ---
Author Organization [facility] Address [facility] [place] [address] Care Team Providers Care Retail Sales Consultant Name Role Phone Beth Chaparro DO Primary Care Provider [phone] Encounter Details Date Type Department Care Team (Late st Contact Info) Description 12/06/2024 Results Follow-Up [facility] Family Medicine - [place] [address] [facility], [address] [place] [address] Beth Chaparro DO [address] [place], [place] [address] TB INTRADERMAL TEST (BACK OFFICE) Social History Tobacco Use Types Packs/Day Years Used Date Smoking Tobacco: Former Cigarettes Passive Smoke Exposure: Never Smokeless Tobacco: Never Alcohol Use Standard Drinks/Week Comments Yes 0 (1 standard drink = 0.6 oz pur e alcohol) 1 drink weekly PHQ-2 Answer Date Recorded Patient Health Questionnaire-2 Score 0 06/08/2024 Sex and Gender Information Value Date Recorded Sex Assigned at Male 06/08/2024 10:17 AM GARMENT PATTERNMAKER Legal Sex Male 5:06 PM CDT Gender Identity Male 06/08/2024 10:17 AM GARMENT PATTERNMAKER Sexual Orientation Not on file Occupation Industry Job Start Date Job End Date Self Employed Not on file Not on file Not on file documented as of this encounter Plan of Treatment Not on file documented as of this encounter Visit Diagnoses Not on filedocumented in this encounter Additional Health Concerns Assessment Noted Time PHQ-9 Depression Total Score: 0 06/08/19 25 10:25 AM GARMENT PATTERNMAKER documented as of this encounter Care Teams Retail Sales Consultant Relationship Specialty [place] [address] [place] [address] PCP - General FAMILY PRACTICE 09/22/23 documented as of this encounter
--- OUTSIDE RECORDS SUMMARY | 2024-12-21 15:06 | XMS_ITS | Encounter Summary ---
Author Organization [facility] Address [facility] [place] [address] Care Team Providers Care Receptionist Secretary Name Role Phone Beth Chaparro DO Primary Care Provider [phone] Reason for Visit * Reason Onset Date Comments Lab Results 11/02/2024 CBC, CMP, TSH wi th reflex Encounter Details Date Type Department Care Team (Latest Contact Info) Description 11/02/2024 Results Follow-Up [facility] Family Medicine - [place] [address] [facility], [address] [place] [phone] Beth Chaparro DO [address] [place] [address] COMPREHENSIVE METABOLIC PANEL, CBC W/DIFF AUTOMATED, TSH W/REFLEX Social History Tobacco Use Types Packs/Day Years Used Date Smoking Tobacco: Former Cigarettes Passive Smoke Exposure: Never Smokeless Tobacco: Never Alcohol Use Standard Drinks/Week Comments Yes 0 (1 standard drink = 0.6 oz pur e alcohol) 1 drink weekly PHQ-2 Answer Date Recorded Patient Health Questionnaire-2 Score 0 06/08/2024 Sex and Gender Information Value Date Recorded Sex Assigned at Male 06/08/2024 10:17 AM SCRAP PREPARATION SUPERVISOR Legal Sex Male 5:06 PM CDT Gender Identity Male 06/08/2024 10:17 AM SCRAP PREPARATION SUPERVISOR Sexual Orientation Not on file Occupation Industry Job Start Date Job End Date Self Employed Not on file Not on file Not on file documented as of this encounter Progress Notes * Nakia Clayton LPN - 11/07/2024 3:05 PM CDT Spoke with patient and informed him of his lab results and recommendations as noted per Dr. Chaparro. Patient verbalized understanding of results and agrees to recommendations. Opportunity given for all questions to be answered, no further needs voiced at this time. Patient reported he saw the aba tutor yesterday and he told patient that is level was fine considering he is at a Stage 4 kidney disease. Patient does not use any NSAIDS at this time. Has a followup in clinic with you tomorrow @ 2:20 and will be happy to discuss his CKD at that time also. * Nakia Clayton LPN - 11/07/2024 3:02 PM CDT ----- Message from Dr. Beth Chaparro sent at 11/07/2024 2:41 PM CDT ----- Creatinine has gone up 2.75 please followup with aba tutor . When is his appt? Avoid nsaids, Blood count is normal Tsh is normal ----- Message ----- From: User,[email or web address] Sent: 11/02/2024 4:46 AM CDT To: Beth Chaparro DO documented in this encounter Plan of Treatment Not on file documented as of this encounter Visit Diagnoses Not on filedocumented in this encounter Additional Health Concerns Assessment Noted Time PHQ-9 Depression Total Score: 0 06/08/19 25 10:25 AM SCRAP PREPARATION SUPERVISOR documented as of this encounter Care Teams Receptionist Secretary Relationship Specialty Start Date End Date Beth Chaparro DO [address] [place] [address] PCP - General FAMILY PRACTICE 09/22/23 documented as of this encounter
--- OUTSIDE RECORDS SUMMARY | 2024-12-21 15:06 | XMS_ITS | Clinical Summary ---
Author Organization [facility] Address [facility] [place] [address] Care Team Providers Care Conversion Worker Name Role Phone Rufino Enriquez DO Primary Care Provider [phone] Allergies No known active allergies Medications * This document contains information received from the source organization and may not represent a complete record from that organization. Cholecalciferol (VITAMIN D3) 1000 units Cap Take 4 tablets by mouth daily. Active losartan (COZAAR) 100 MG tabletIndications:E ssential hypertension, benign Take 1 tablet (100 mg total) by mouth daily. 90 tablet 3 5 Active omeprazole (PRILOSEC) 20 MG capsuleIndications: Essential hypertension, benign,Obesity, morbid (CMS/HCC),Stage 4 chronic kidney disease (CMS/HCC HHS/HCC),Encounter for screening for malignant neoplasm of prostate Take 1 capsule (20 mg total) by mouth every morning. 90 capsule 3 5 Active atenolol (TENORMIN) 25 MG tabletIndications:E ssential hypertension, benign Take 1 tablet (25 mg total) by mouth daily. 90 tablet 3 5 Active fenofibrate 160 MG tabletIndications:E ssential hypertension, benign,Obesity, morbid (CMS/HCC),Stage 4 chronic kidney disease (CMS/HCC HHS/HCC),Encounter for screening for malignant neoplasm of prostate Take 0.5 tablets (80 mg total) by mouth daily. 90 tablet 3 5 Active olopatadine (PATADAY) 0.7 % ophthalmic solutionIndications :Allergic conjunctivitis of both eyes Place 1 drop into both eyes daily. 2.5 mL 1 5 Active atorvastatin (LIPITOR) 80 MG tabletIndications:F amilial hypercholesterolemi a,Hypertriglyceride anastacia Take 1 tablet (80 mg total) by mouth nightly at bedtime. 90 tablet 1 5 Active Active Problems Problem Noted Date Diagnosed Date Obesity, morbid 11/08/2024 Atrial paroxysmal tachycardia ([facility]/HCC) 01/03/20 24 Osteoarthrosis 11/24/2023 Prediabetes 09/22/2023 Chronic pain of right knee 09/22/2023 Atypical chest pain 09/22/2023 Sinus bradycardia 09/22/2023 Snoring 09/22/2023 Gastroesophageal reflux disease without esophagi tis 03/29/2022 Stage 4 chronic kidney disease ([facility]/HCC HHS/HCC) 11/01/2020 Hypertriglyceridemia 06/07/2020 Essential hypertension, benign 04/01/2020 Acute renal failure 04/01/2020 Benign prostatic hyperplasia with urinary obstru ction 03/04/2020 Encounters * This document contains information received from the source organization and may not represent a complete record from that organization. Date Type Department Care Team Description 12/20/2024 Patient Outreach [facility] [address] [place] [address] Kika Pulliam LPN Pre-visit Gap Closure 12/06/2024 10:00 AM CDT Allied Health/Nurse Visit [facility] [address], [address] [place] [phone] Rufino Enriquez DO PPD 12/06/2024 Results Follow-Up [facility] [address], [address] [place] [phone] Rufino Enriquez DO TB INTRADERMAL TEST (BACK OFFICE) 12/06/2024 Travel 12/04/2024 9:40 AM CDT Allied Health/Nurse Visit [facility] [address], [address] [place] [phone] Rufino Enriquez DO Imm/Inj 12/04/2024 8:00 AM CDT Office Visit [facility] [address] [place] [address] Rufino Enriquez DO Mueller, Abbie T, SCHOOL BUS DRIVER Generalized Weakness 12/04/2024 Travel 11/30/2024 8:00 AM CDT Office Visit [facility] [address] [place] [address] Rufino Enriquez DO Mueller, Abbie T, SCHOOL BUS DRIVER Generalized Weakness 11/30/2024 Travel 11/23/2024 10:45 AM CDT - 11/23/2024 11:59 PM CDT Hospital Encounter [facility] [address] [place] [address] Quinn Braden MD Discharge Disposition: Home or Self Care (Routine Discharge) 11/23/2024 Results Follow-Up [facility] Pre Access Team [address] [place] [address] HEART SCREEN CALCIUM SCORE PROMO 11/23/2024 Travel 11/22/2024 8:00 AM CDT Office Visit [facility] [address] [place] [address] Rufino Enriquez DO Lueken, Anne H, PT Initial Evaluation 11/22/2024 Travel 11/21/2024 Scan [facility] HEALTH INFO SRVCS Scanned, [facility] 11/16/2024 Results Follow-Up [facility] [address], [address] [place] [phone] Rufino Enriquez DO LIPID PANEL, HEMOGLOBIN, GLYCOSYLATED, PROSTATE SPECIFIC ANTIGEN,SCREENING, VITAMIN D, 25 OH 11/08/2024 2:20 PM CDT Office Visit [facility] [address], [address] [place] [phone] Rufino Enriquez, Follow Up (Pt here for lab follow up. Pt also wanting to see a machine design engineer. [facility] ) 11/08/2024 Travel 11/02/2024 Results Follow-Up [facility] [place] [address], [address] [place] [phone] Rufino Enriquez, COMPREHENSIVE METABOLIC PANEL, CBC W/DIFF AUTOMATED, TSH W/REFLEX 10/18/2024 Scan [facility] HEALTH INFO SRVCS Scanned, [facility] from Last 3 Months Immunizations Immunization Administration Dates Next Due Influenza (Generic) 02/25/2020,05/11/2013 Influenza Adult (Generic) 03/30/2022,,02/13/2020,03/04/2018,2015 Tdap (Generic) 10/07/2015,12/04/2014 Family History Medical History Relation Comments Breast Cancer Mother Hypertension Mother Relation Status Comments Mother Social History Tobacco Use Types Packs/Day Years Used Date Smoking Tobacco: Former Cigarettes Passive Smoke Exposure: Never Smokeless Tobacco: Never Tobacco Cessation:Counseling Given: No Alcohol Use Standard Drinks/Week Comments Yes 0 (1 standard drink = 0.6 oz pur e alcohol) 1 drink weekly PHQ-2 Answer Date Recorded Patient Health Questionnaire-2 Score 0 06/08/2024 Sex and Gender Information Value Date Recorded Sex Assigned at Male 06/08/2024 10:17 AM CANDY ATTENDANT Legal Sex Male 5:06 PM CDT Gender Identity Male 06/08/2024 10:17 AM CANDY ATTENDANT Sexual Orientation Not on file Occupation Industry Job Start Date Job End Date Self Employed Not on file Not on file Not on file Last Filed Vital Signs Vital Sign Reading Time Taken Comments Blood Pressure 128/78 11/08/2024 2:04 PM CDT Pulse 60 11/08/2024 2:04 PM CDT Temperature 36.3 C (97.3 F) 11/08/2024 2:04 PM CDT Respiratory Rate 18 11/08/2024 2:04 PM CDT Oxygen Saturation 96% 11/08/2024 2:04 PM CDT Inhaled Oxygen Concentration - - Weight 112.5 kg (248 lb) 11/08/2024 2:04 PM CDT Height 180.3 cm (5' 11) 11/08/2024 2:04 PM CDT Body Mass Index 34.59 11/08/2024 2:04 PM CDT Plan of Treatment Health Maintenance Due Date Last Done Comments Colorectal Cancer Screening Colonoscopy (10 Years) 1960 Pneumococcal Vaccine: 50+ Years (1 of 2 - PCV) 1977 Zoster Vaccines (1 of 2) 2008 RSV Immunization or 60+ Years (1 - Risk 60-74 years 1-dose series) 2018 Annual Medicare Wellness Visit 2023 COVID-19 Vaccine (1 - season) 2023 DTaP, Tdap and Td Vaccines (3 - Td or Tdap) 10/06/2025 10/07/2015, 12/04/2014 Hepatitis C Completed 03/12/2020, 02/24, 03/12/2020, Additional history exists AAA SCREENING Completed 01/03/2024, 05/28, 03/07/2020, Additional history exists PHQ-2 (Physician Rousseau) Completed 06/08/2024 Meningococcal B Vaccine Aged Out No l onger eligible based on patient's age to complete this topic Meningococcal Vaccine Aged Out No pravin ulysses eligible based on patient's age to complete this topic RSV Immunizations Under 20 Months Aged Out No longer eligible based on patient's age to complete this topic Procedures Procedure Name Priority Date/Time Associated Diagnosis Comments TB INTRADERMAL TEST (BACK OFFICE) Routine 12/04/2024 9:50 AM CDT PPD screening test CT HEART SCREEN CALCIUM SCORE PROMO Routine 11/23/2024 11:13 AM CDT Screening for heart disease VITAMIN D, 25 OH Routine 11/15/2024 7:34 AM CDT PROSTATE SPECIFIC ANTIGEN,SCREENING Routine 11/15/2024 7:34 AM CDT Encounter for screening for malignant neoplasm of prostate HEMOGLOBIN, GLYCOSYLATED Routine 11/15/2024 7:34 AM CDT Essential hypertension, benign Obesity, morbid (CMS/HCC) Stage 4 chronic kidney disease (CMS/HCC HHS/HCC) Encounter for screening for malignant neoplasm of prostate Abnormal finding of blood chemistry, unspecified LIPID PANEL Routine 11/15/2024 7:34 AM CDT Essential hypertension, benign Obesity, morbid (CMS/HCC) Stage 4 chronic kidney disease (CMS/HCC HHS/HCC) Encounter for screening for malignant neoplasm of prostate TSH W/REFLEX Routine 11/01/2024 7:21 AM CDT CBC W/DIFF AUTOMATED Routine 11/01/2024 7:21 AM CDT Essential hypertension, benign COMPREHENSIVE METABOLIC PANEL Routine 11/01/2024 7:21 AM CDT Essential hypertension, benign CT ABD+PEL WO CON STAT 01/03/2024 3:1 6 PM CDT CKD (chronic kidney disease) stage 4, GFR 15-29 ml/min Lymphadenopathy Right upper quadrant abdominal pain from Last 3 Months or Most Recently Relevant to Health Maintenance Results * TB INTRADERMAL TEST (BACK OFFICE) (12/04/2024 9:50 AM CDT) MM INDURATION 0mm PPD SKIN TEST negative NOT REQUIRED 12/04/2024 9:50 AM CDT us Rufino Shankar DO MICROBIOLOGY - GENERAL ORDERABL ES Final Result * CT HEART SCREEN CALCIUM SCORE PROMO (11/23/2024 11:13 AM CDT) Anatomical Region Laterality Modality Chest Computed Tomogra phy 11/23/2024 3:26 PM CDT Impressions 11/23/2024 3:27 PM CDT =====IMPRESSION:===== Total Score: 676 Extensive plaque, high risk, high likelihood of significant stenosis (>50%). Ordered By: QUINN BRADEN Interpreted By: Roger Thompson MD, 11/23/2024 3:26 PM Narrative 11/23/2024 3:27 PM CDT [address] [address] EXAMINATION: Multislice Helical CT Coronary Calcium Scoring REASON FOR EXAM: Screening for heart disease COMPARISON: None TECHNIQUE: Multislice helical CT images of the proximal coronary arteries with a computer generated calcification score. A dose lowering technique was used for this procedure, which may include, but is not limited to, dose reduction technique, automated exposure control, iterative reconstruction, ALARA (As Low As Reasonably Achievable), or Image Gently techniques. Results: Left main: 0 LAD: 286 Circumflex: 215 Right coronary: 178 Total Score: 676 Comments: There is no mediastinal adenopathy, and there are no pulmonary nodules in the visualized portions of the chest. Calcium score guidelines: Total Score* Calcium Plaque [place] *Risk *Probability of significant CAD 0 No Plaque Very Low Very unlikely 1-10 Minimal Plaque Low Unlikely 11-100 Mild Plaque Moderate Low likelihood of significant stenosis <50% 101-400 Moderate Plaque Moderately High Moderate likelihood of significant stenosis (>50%) Over 400 Extensive Plaque High High likelihood of significant stenosis (>50%) The amount of coronary artery calcification correlates with the severity of coronary atherosclerosis and the probability of future significant event. Calcification is not site specific for stenosis and does not identify non-calcified atherosclerotic plaque, but rather indicates the extent of atherosclerosis in the coronary arteries overall. The score may be used as an indicator for risk factor modification or additional cardiac testing. Significant change in calcium score over time may be indicative of subsequent disease development or useful as a benchmark to assess preventative programs. Procedure Note Roger Thompson MD - 11/23/[address] [address] EXAMINATION: Multislice Helical CT Coronary Calcium Scoring REASON FOR EXAM: Screening for heart disease COMPARISON: None TECHNIQUE: Multislice helical CT images of the proximal coronary arterieswith a computer generated calcification score. A dose lowering techniquewas used for this procedure, which may include, but is not limited to,dose reduction technique, automated exposure control, iterativereconstruction, ALARA (As Low As Reasonably Achievable), or Image Gentlytechniques. Results: Left main: 0 LAD: 286 Circumflex: 215 Right coronary: 178 Total Score: 676 Comments: There is no mediastinal adenopathy, and there are no pulmonarynodules in the visualized portions of the chest. Calcium score guidelines: Total Score* Calcium Plaque [place] *Risk *Probability ofsignificant CAD 0 No Plaque Very LowVery unlikely 1-10 Minimal Plaque LowUnlikely 11-100 Mild Plaque ModerateLow likelihood of significant stenosis <50% 101-400 Moderate Plaque Moderately HighModerate likelihood of significant stenosis (>50%) Over 400 Extensive Plaque HighHigh likelihood of significant stenosis (>50%) The amount of coronary artery calcification correlates with the severityof coronary atherosclerosis and the probability of future significantevent. Calcification is not site specific for stenosis and does notidentify non-calcified atherosclerotic plaque, but rather indicates theextent of atherosclerosis in the coronary arteries overall. The score may be used as an indicator for risk factor modification oradditional cardiac testing. Significant change in calcium score over timemay be indicative of subsequent disease development or useful as abenchmark to assess preventative programs. =====IMPRESSION:===== Total Score: 676 Extensive plaque, high risk, high likelihood ofsignificant stenosis (>50%). Ordered By: QUINN BRADEN Interpreted By: Roger Thompson MD, 11/23/2024 3:26 PM us Quinn Braden MD CT Final Res ult * (ABNORMAL) HEMOGLOBIN, GLYCOSYLATED (11/15/2024 7:34 AM CDT) HGB A1C 6.1(H) <5.7 % of total Hgb [facility] Comment: For someone without known diabetes, a hemoglobin A1c value between 5.7% and 6.4% is consistent with prediabetes and should be confirmed with a follow-up test. For someone with known diabetes, a value <7% indicates that their diabetes is well controlled. A1c targets should be individualized based on duration of diabetes, age, comorbid conditions, and other considerations. This assay result is consistent with an increased risk of diabetes. Currently, no consensus exists regarding use of hemoglobin A1c for diagnosis of diabetes for children. 11/15/2024 7:34 AM CDT 11/15/2024 7:37 AM CDT Narrative [facility] - [facility]DERS - 11/16/2024 8:17 AM CDT FASTING:YES FASTING: YES Resulting Agency Comment Performing Organization Information: Site ID: [id number] Name: [id number] Address: [address] [place] [address] Director: Otoniel Rosenbaum us Rufino Shankar DO LABORATORY Final Result [facility] [place], [place] [address] [place] [phone], * PROSTATE SPECIFIC ANTIGEN,SCREENING (11/15/2024 7:34 AM CDT) PSA TOTAL 0.67 < OR = 2.50 ng/mL [facility] Comment: The total PSA value from this [...] of the presence or absence of disease. 11/15/2024 7:34 AM CDT 11/15/2024 7:37 AM CDT Narrative [facility] - [facility]DERS - 11/16/2024 8:17 AM CDT FASTING:YES FASTING: YES Resulting Agency Comment Performing Organization Information: Site ID: [place] Name: [facility] Address: [address] [address] Director: Otoniel Rosenbaum MD us Rufino Shankar DO LABORATORY Final Result Performing Organization Address City/[facility]/ZIP Co de Phone Number [facility] - [facility] [address] [address], * (ABNORMAL) LIPID PANEL (11/15/2024 7:34 AM CDT) CHOLESTEROL 185 <200 mg/dL [facility] HDL 42 > OR = 40 mg/dL [facility] TRIGLYCERIDES 168(H) <150 mg/dL [facility] LDL (CALCULATED) 115(H) mg/dL (calc) [facility] Comment: Reference range: <100 Desirable range <100 mg/dL for primary prevention; <70 mg/dL for patients with CHD or diabetic patients with > or = 2 CHD risk factors. LDL-C is now calculated using the Nell calculation, which is a validated novel method providing better accuracy than the Friedewald equation in the estimation of LDL-C. Wm SS et al. KATLIN. 2013;310(19): 1618-9261 (http://education.EternoGen/faq/ZEC996) CHOL/HDL RATIO 4.4 <5.0 (calc) [facility] NON HDL CHOLESTEROL 143(H) <130 mg/dL (calc) [facility] Comment: For patients with diabetes plus 1 major ASCVD risk factor, treating to a non-HDL-C goal of <100 mg/dL (LDL-C of <70 mg/dL) is considered a therapeutic option. 11/15/2024 7:34 AM CDT 11/15/2024 7:37 AM CDT Narrative [facility] - 11/16/2024 8:17 AM CDT FASTING:YES FASTING: YES Resulting Agency Comment Performing Organization Information: Site ID: [place] Name: [facility] Address: [address] [address] Director: Otoniel Rosenbaum MD us Rufino Shankar DO LABORATORY Final Result Performing Organization Address City/[facility]/ZIP Co de Phone Number [facility] [address] [address], * VITAMIN D, 25 OH (11/15/2024 7:34 AM CDT) VITAMIN D 25 HYDROXY TOTAL S/P/B 39 30 - 100 ng/mL [facility] Comment: Vitamin D Status 25-OH Vitamin D: Deficiency: <20 ng/mL Insufficiency: 20 - 29 ng/mL Optimal: > or = 30 ng/mL For 25-OH Vitamin D testing on patients on D2-supplementation and patients for whom quantitation of D2 and D3 fractions is required, the [facility]ure[facility](TM) 25-OH VIT D, (D2,D3), LC/MS/MS is recommended: order code 96503 (patients >2yrs). See Note 1 Note 1 For additional information, please refer to http://education.EternoGen/faq/ABM391 (This link is being provided for informational/ educational purposes only.) 11/15/2024 7:34 AM CDT 11/15/2024 7:37 AM CDT Narrative [employer] ORDERS - 11/16/2024 8:17 AM CDT FASTING:YES FASTING: YES Resulting Agency Comment Performing Organization Information: Site ID: [place] Name: [facility] Address: [address] [place] [phone] Director: Otoniel Rosenbaum MD us Rufino Shankar DO LABORATORY Final Result [facility] - [facility] [id number] [place] [phone], * TSH W/REFLEX (11/01/2024 7:21 AM CDT) TSH 1.39 0.40 - 4.50 mIU/L [email or web address] 11/01/2024 7:21 AM CDT 11/01/2024 7:21 AM CDT Narrative [facility] - [facility]DERS - 11/02/2024 4:43 AM CDT FASTING:YES FASTING: YES Resulting Agency Comment Performing Organization Information: Site ID: [place] Name: [facility] [employer] Address: [address] [place] [phone] Director: Otoniel Rosenbaum MD us Rufino Shankar DO LABORATORY Final Result [facility] - [facility] [address] [address], XR * (ABNORMAL) COMPREHENSIVE METABOLIC PANEL (11/01/2024 7:21 AM CDT) GLUCOSE 127(H) 65 - 99 mg/dL [facility] Comment: Fasting reference interval For someone without known diabetes, a glucose value >125 mg/dL indicates that they may have diabetes and this should be confirmed with a follow-up test. BUN 47(H) 7 - 25 mg/dL [facility] CREATININE S/P/B 2.75(H) 0.70 - 1.35 mg/dL [facility] GFR ESTIMATE 25(L) > OR = 60 mL/min/1. 73m2 [facility] BUN CREATININE RATIO 17 6 - 22 (calc) [facility] SODIUM S/P/B 141 135 - 146 mmol/L [facility] POTASSIUM S/P/B 4.5 3.5 - 5.3 mmol/L [facility] CHLORIDE S/P/B 112(H) 98 - 110 mmol/L [facility] [place] CO2 20 20 - 32 mmol/L [facility] [email or web address] [place] CALCIUM S/P/B 9.4 8.6 - 10.3 mg/dL [facility] TOTAL PROTEIN S/P/B 6.5 6.1 - 8.1 g/dL [facility] ALBUMIN S/P/B 4.3 3.6 - 5.1 g/dL [facility] GLOBULIN 2.2 1.9 - 3.7 g/dL (calc) [facility] ALBUMIN/GLOBULIN RATIO 2.0 1.0 - 2.5 (calc) [facility] [place] BILIRUBIN TOTAL S/P/B 0.3 0.2 - 1.2 mg/dL [facility] [place] ALKALINE PHOSPHATASE S/P/B 39 35 - 144 U/L [facility] AST 15 10 - 35 U/L [facility] ALT 16 9 - 46 U/L [facility] 11/01/2024 7:21 AM CDT 11/01/2024 7:21 AM CDT Narrative [facility] - 11/02/2024 4:43 AM CDT FASTING:YES FASTING: YES Resulting Agency Comment Performing Organization Information: Site ID: [place] Name: [facility] Address: [address] [address] Director: Otoniel Rosenbaum MD us Rufino Shankar DO LABORATORY Final Result [facility] [place] [address] [address], [place] [address], * (ABNORMAL) CBC W/DIFF AUTOMATED (11/01/2024 7:21 AM CDT) WBC 7.3 3.8 - 10.8 Thousand/ uL [facility] [place] RBC 4.61 4.20 - 5.80 Million/u L [facility] [place] HGB 12.4(L) 13.2 - 17.1 g/dL [facility] [place] HCT 39.8 38.5 - 50.0 % [facility] [place] MCV 86.3 80.0 - 100.0 fL [facility] [place] MCH 26.9(L) 27.0 - 33.0 pg [facility] [place] MCHC 31.2(L) 32.0 - 36.0 g/dL [facility] [place] Comment: For adults, a slight decrease in the calculated MCHC value (in the range of 30 to 32 g/dL) is most likely not clinically significant; however, it should be interpreted with caution in correlation with other red cell parameters and the patient's clinical condition. RDW 14.0 11.0 - 15.0 % [facility] [place] PLT 275 140 - 400 Thousand/ uL [facility] [place] MPV 10.1 7.5 - 12.5 fL [facility] [place] ABS. NEUTROPHILS 4,628 1,500 - 7,800 cells/uL [facility] [place] ABS. LYMPHOCYTES 1,796 850 - 3,900 cells/uL [facility] [place] ABS. MONOCYTES 650 200 - 950 cells/uL [facility] [place] ABS. EOSINOPHILS 168 15 - 500 cells/uL [facility] [place] ABS. BASOPHILS 58 0 - 200 cells/uL [facility] [place] SEG NEUTROPHILS 63.4 % [facility] [place] LYMPHOCYTES 24.6 % [facility] [place] MONOCYTES 8.9 % [facility] [place] EOSINOPHILS 2.3 % [facility] [place] BASOPHILS 0.8 % [facility] [place] 11/01/2024 7:21 AM CDT 11/01/2024 7:21 AM CDT Narrative [facility] - 11/02/2024 4:43 AM CDT FASTING:YES FASTING: YES Resulting Agency Comment Performing Organization Information: Site ID: [place] Name: [facility] Address: [id number] [place] [phone] Director: Otoniel Rosenbaum MD us Rufino Enriquez DO LABORATORY Final Result [facility] [place] [id number] [place] [address] [place] [address], [place] * CT ABD+PEL WO CON (01/03/2024 3:16 [...] 3:31 PM Narrative 01/03/2024 3:[address] [address] [address] abdomen and pelvis without IV contrast [...] Procedure Note Hernandez Hansen MD - 01/03/[address] [address] [address] abdomen and pelvis without IV contrast [...] By: Hernandez Hansen MD, 01/03/2024 3:31 PM us Rufino Enriquez DO CT Final Result from Last 3 Months or Most Recently Relevant to Health Maintenance Insurance MEDICARE Care Teams Conversion Worker Relationship Specialty Start Date End Date Rufino Enriquez DO [address] [place] [id number] PCP - General FAMILY PRACTICE 09/22/23
--- OUTSIDE RECORDS SUMMARY | 2024-12-21 15:06 | XMS_ITS | Clinical Summary ---
Author Organization [facility] Address [address] [address] Phone Care Team Providers Care Clinic Licensed Practical Nurse Name Role Phone Michelle Fabian NP Primary Care Provider [phone] Allergies No known active allergies Medications atenolol (TENORMIN) 25 MG tablet Take 25 mg by mouth 2 (two) times a day 1 Active famotidine (PEPCID) 20 MG tablet Take 20 mg by mouth 2 (two) times a day 1 Active amphetamine-dex troamphetamine (ADDERALL) 10 MG tablet dextroamphetamin e-amphetamine 10 mg tablet Active montelukast (SINGULAIR) 10 MG tablet TAKE 1 TABLET BY MOUTH EVERYDAY AT BEDTIME 1 Active pravastatin (PRAVACHOL) 20 MG tablet pravastatin 20 mg tablet Active omeprazole (PriLOSEC) [address] capsule Take by mouth 1 (one) time each day 2 Active fluticasone (FLONASE) 50 MCG/ACT nasal spray ADMINISTER 2 SPRAYS INTO EACH NOSTRIL 2 TIMES A DAY 2 Active losartan (COZAAR) 25 MG tablet Take 1 tablet (25 mg total) by mouth 1 (one) time each day 30 tablet 11 2 Active Active Problems Problem Noted Date Diagnosed Date Mixed anxiety and depressive disorder 02/11/2021 Chronic kidney disease stage 4 11/01/2020 Epigastric pain 07/25/2020 Lower urinary tract symptoms 07/24/2020 Acute kidney failure 06/07/2020 Hyperlipidemia 06/07/2020 Hyperglycemia 06/07/2020 Steatohepatitis 06/07/2020 Benign essential hypertension 04/01/2020 Benign prostatic hypertrophy with outflow obstru ction 03/04/2020 Atrial paroxysmal tachycardia 01/15/2019 Immunizations Immunization Administration Dates Next Due Influenza (IM) Preservative [...] at Not on file Legal Sex Male 8:12 AM [facility] Gender Identity Not on file Sexual Orientation [...] 11:43 AM CDT Height 180.3 cm (5' 11) 01/28/2022 11:43 AM CDT Body Mass Index 33.19 01/28/2022 11:43 AM CDT Plan of Treatment Health Maintenance Due Date Last Done Comments Pneumococcal PPSV23/PCV13 65 + Years / Low and Medium Risk (1 of 2 - PCV) 2008 Influenza Vaccine (#1) 2024 , 02/25/2020, 02/25/2020, Additional history exists Insurance [place] [employer] Care Teams Clinic Licensed Practical Nurse Relationship Specialty Start Date End Date Michelle Fabian NP [facility] [place] [address] PCP - General Internal Medicine 06/04/20
[2024-12-21 15:31] LABS: Hematocrit 37.2 % (42.0-52.0); Hemoglobin 11.8 g/dL (14.0-18.0); Immature Granulocyte Percent A 0.8 % (0-0.5); Lymphocytes Absolute Auto 2.00 K/mm3 (0.9-3.2); Mean Corpuscular HGB Conc 31.7 g/dl (32-36); Mean Corpuscular Hemoglobin 26.7 pg (26-34); Mean Corpuscular Volume 84.2 fl (80-100); Nucleated Red Blood Cells Absolute Auto 0.000 K/mm3 (0.0-0.012); Nucleated Red Blood Cells Perc 0.0 % (0.0-0.2); Platelet Count Result 260 k/mm3 (150-375); Red Blood Count 4.42 M/mm3 (4.6-6.20); White Blood Count 8.9 K/mm3 (4.5-10.0)
[2024-12-21 15:53] LABS: CRP 1.1 mg/dL (<1.0)
== END 2024-12-21 15:01 | disposition home or self-care (01) ==
LOC: ANHLAB 15:02
PROVIDERS: PCP Family Medicine; Visit Provider Orthopaedic Surgery
DX: M25.551 Pain in right hip (principal); Z96.641 Presence of right artificial hip joint
CPT/HCPCS: 36415; 85025; 85652; 86140

== ENCOUNTER 2025-02-16 11:53 | Outpatient (CLI) | payer MEDICARE, SELFPAY ==
--- OUTSIDE RECORDS SUMMARY | 2025-02-16 09:45 | XMS_ITS | Encounter Summary ---
Author Organization [facility] Healthcare Address [address] [place] [address] Care Team Providers Care Floor Coverings Salesperson Name Role Phone Andre Rosales MD Unavailable [phone] Beth Chaparro DO Primary Care Provider [phone] Reason for Referral * Consultation (Routine) - Closed Specialty Diagnoses / Procedures Referred By Blake rachel Referred To Contact Pain Management Diagnoses Right lumbar radiculopathy Lumbar stenosis without neurogenic claudication Karime Jovel NP [address] [facility] [address] [place] [address] Phone: tel: fax: Leny Morley MD PhD [id number] [place] [address] Phone: tel: fax: Referral ID Status Reason Start Date Expiration Date V isits Requested Visits Authorized [id number] Closed Specialty Services Required 01/29/2025 02/28/2026 1 1 Question Answer Please select the performing region: [facility] [[id number]] To Provider NOTE: we will do our best to honor your provider preference, but scheduling the patient in a timely manner in our clinic will take precedence. LENY MORLEY [[id number]] # of visits: 1 Comments R L3/4 TFESI * Diagnostic Imaging (Routine) - Closed Specialty Diagnoses / Procedures Referred By Contac t Referred To Contact Diagnoses Lumbar radiculopathy Procedures Imaging Lumbar/Sacral Selective Nerve Root INJ (TFE) Right ([id number]) Leny Morley MD PhD [address] [facility] [address] [facility] [phone] [place] [address] Phone: tel: fax: [address] [phone] Referral ID Status Reason Start Date Expiration Date Visits Re quested Visits Authorized [id number] Closed 01/29/2025 02/28/2026 1 1 * Diagnostic Imaging (Routine) - Pending Review Specialty Diagnoses / Procedures Referred By Contac t Referred To Contact Diagnoses Lumbar radiculopathy Procedures Imaging Lumbar/Sacral Selective Nerve Root INJ (TFE) Bilateral ([id number]) Leny Morley MD PhD [address] [facility] [address] [facility] [phone] [place] [address] Phone: tel: fax: [address] [phone] Referral ID Status Reason Start Date Expiration Date V isits Requested Visits Authorized [id number] Pending Review 02/13/2025 03/15/2026 1 1 Reason for Visit * Reason Comments Initial Consult Back Pain Right side low back shooting into anterior right leg at times * Diagnostic Imaging (Routine) - Closed Specialty Diagnoses / Procedures Referred By Contac t Referred To Contact Diagnoses Lumbar radiculopathy Procedures Imaging Lumbar/Sacral Selective Nerve Root INJ (TFE) Right ([id number]) Leny Morley MD PhD [address] [facility] [address] [address] [facility] [phone] [place] [address] Phone: tel: fax: [address] [place] [address] Referral ID Status Reason Start Date Expiration Date Visits Re quested Visits Authorized [id number] Closed 01/29/2025 02/28/2026 1 1 Encounter Details Date Type Department Care Team (Latest Contact Info) Description 02/16/2025 9:45 AM CDT Hospital Encounter [facility] [address] [facility] [address] [place] [address] Leny Morley MD PhD [address] [facility] [id number] [place] [address] Lumbar radiculopathy (Primary Dx) Social History Tobacco Use Types Packs/Day Years Used Date Smoking Tobacco: Former Cigarettes 0.5 4.4 1 977 - 09/05/1980 Smokeless Tobacco: Never Tobacco Cessation:Counseling Given: Not Answered Alcohol Use Standard Drinks/Week Comments Not Currently 0 (1 standard drink = 0.6 oz pur e alcohol) Very Rare AUDIT-C Answer Date Recorded Q1: How often do you have a drink containing alcohol? Never 02/16/2025 Q2: How many drinks containi ng alcohol do you have on a typical day when you are drinking? Patient does not drink Q3: How often do you have si x or more drinks on one occasion? Never 02/16/2025 Sex and Gender Information Value Date Recorded Sex Assigned at Not on file Legal Sex Male 3:22 AM [employer] Gender Identity Not on file Sexual Orientation Not on file documented as of this encounter Last Filed Vital Signs Vital Sign Reading Time Taken Comments Blood Pressure 148/73 02/16/2025 11:02 AM CDT Pulse 63 02/16/2025 11:02 AM CDT Temperature 36.4 C (97.5 F) 02/16/2025 10:02 AM CDT Respiratory Rate 17 02/16/2025 10:55 AM CDT Oxygen Saturation 97% 02/16/2025 11:02 AM CDT Inhaled Oxygen Concentration - - Weight 113.4 kg (250 lb) 02/16/2025 10:02 AM CDT Height 180.3 cm (5' 11) 02/16/2025 10:02 AM CDT Body Mass Index 34.87 02/16/2025 10:02 AM CDT documented in this encounter Functional Status * AUDIT-C Score Answer Date of Assessment Author 0 02/16/2025 10:20 AM CDT Alexey Otero, RINA * Question Answer Date of Assessment Author Q1: How often do you have a drink containing alcohol? Never 02/16/2025 10:20 AM CDT Charisse Otero R N Q2: How many drinks containing alcohol do you have on a typical day when you are drinking? Patient does not drink 02/16/2025 10:20 AM CDT Charisse Otero RN Q3: How often do you have six or more drinks on one occasion? Never 02/16/2025 10:20 AM CDT Charisse Otero R N documented as of this encounter Plan of Treatment Scheduled Orders Name Type Priority Associated Diagnoses Orde r Schedule Imaging Lumbar/Sacral Selective Nerve Root INJ (TFE) Bilateral ([id number]) Imaging Schedule Routine, Read Routine (OP Routine) Lumbar radiculopathy Expected: 02/13/2025, Expires: 02/13/2026 Scheduled Referrals Name Type Priority Associated Diagnoses Order Schedule Ambulatory referral to Pain Management Outpatient Referral Routine Once for 1 Occurrences starting 02/16/2025 until 02/16/2025 documented as of this encounter Goals Goal Patient Goal Type Associated Problems Recent Progress Patient-Stated? Author CCM Chronic Pain Care Plan Chronic Care Management Worsening( 10:13 AM CDT) No Charisse Otero, RINA Note: Problem: Chronic Pain Goals: 1. Minimize further functional decline 2. Maximize quality of life 3. Control pain Strategies: - Activity/exercise program recommendation - Conservative stepwise pain medicine strategy with multi-disciplinary approach - Recommend healthy lifestyle strategies and compensatory methods as needed documented as of this encounter Procedures Procedure Name Priority Date/Time Associated Diagnosis Comments PAIN MGMT IMAGING LUMBAR/SACRAL SELECTIVE NERVE ROOT INJ (TFE) RIGHT Schedule Routine, Read Routine (OP Routine) 02/16/2025 10:54 AM CDT Lumbar radiculopathy documented in this encounter Results * Imaging Lumbar/Sacral Selective Nerve Root INJ (TFE) Right ([id number]) (02/16/2025 10:54 AM CDT) Narrative [facility] - 02/16/2025 10:54 AM CDT The images from this study are not interpreted by Radiology. Please refer to the physician's procedure / OR operative note. us Leny Morley MD PhD IMG PAIN MGMT PROCEDURES Final Result [facility] documented in this encounter Visit Diagnoses Diagnosis Lumbar radiculopathy- Primary Thoracic or lumbosacral neuritis or radiculitis, unspecified documented in this encounter Administered Medications Active Administered Medications - up to 3 most recent administrations Medication Order MAR Action Action Date Dose Rate Site BUPivacaine (MARCAINE) 0.5 % (5 mg/mL) preservative free injection As needed, Starting on Wed02/16/25 at 1051, Intra-Op Given 02/16/2025 10:51 AM CDT 1 mL dexAMETHasone (DECADRON) preservative free solution intralumbar, Administer over 2 Minutes, As needed, Starting on Wed02/16/25 at 1051, Intra-Op Given 02/16/2025 10:51 AM CDT 10 mg iohexoL (OMNIPAQUE) 300 mg iodine/mL injection solution As needed, Starting on Wed02/16/25 at 1051, Intra-Op Given 02/16/2025 10:51 AM CDT 1 mL lidocaine (PF) (XYLOCAINE) 10 mg/mL (1 %) preservative free injection As needed, Starting on Wed02/16/25 at 1051, Intra-Op Given 02/16/2025 10:51 AM CDT 10 mL documented in this encounter Care Teams Floor Coverings Salesperson Relationship Specialty Start Date End Date Beth Chaparro DO [address] [place] [address] PCP - General Family Medicine 01/17/25 Andre Rosales MD Referring Physician Nephrology 05/06/20 documented as of this encounter
--- OUTSIDE RECORDS SUMMARY | 2025-02-16 11:56 | XMS_ITS | Clinical Summary ---
Author Organization [facility] Address [address] [address] Phone Care Team Providers Care Fashion Model Name Role Phone Michelle Fabian NP Primary Care Provider [phone] Allergies No known active allergies Medications atenolol [...] on file Legal Sex Male 8:12 AM [facility] Gender Identity Not on file Sexual Orientation [...] , 02/25/2020, 02/25/2020, Additional history exists Insurance [place] [employer] Care Teams Fashion Model Relationship Specialty Start Date End Date Michelle Fabian NP [facility] [place] [address] PCP - General Internal Medicine 06/04/20
--- OUTSIDE RECORDS SUMMARY | 2025-02-16 11:56 | XMS_ITS | Clinical Summary ---
Author Organization [facility] Address [address] [place] [address] Care Team Providers Care Line Controller Name Role Phone Andre Rosales MD Unavailable [phone] Beth Chaparro DO Primary Care Provider [phone] Allergies No known active allergies Medications atenoloL (TENORMIN) 25 mg tabletIndicatio ns:hypertension Take 1 tablet (25 mg total) by mouth 2 (two) times a day [...] 2-3 weeks 40 g 1 3 Active Additional Information Patient not taking.Reported on 02/16/2025 traMADoL (ULTRAM) 50 mg tablet Rarely uses for pain at night 5 Active atorvastatin (LIPITOR) 80 mg tablet Take 1 tablet (80 mg total) by mouth nightly 5 Active Active Problems Problem Noted Date Diagnosed Date Lumbar radiculopathy 02/13/2025 Chronic midline thoracic back pain 08/07/2021 CKD (chronic kidney disease) stage 4, GFR 15-29 ml/min 11/01/2020 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 urethral s tricture 08/21/2020 Overview (08/21/2020): Added automatically from request for surgery [id number] Lower urinary tract symptoms (LUTS) 07/24/2020 Stricture of anterior urethra in male 07/24/2020 Encounters Date Type Department Care Team Description 02/16/2025 9:45 AM CDT Hospital Encounter [facility] [address] [place] [address] Advanced Medicine [address] [place] [address] Leny Morley MD PhD Lumbar radiculopathy (Primary Dx) 01/29/2025 10:30 AM CDT Office Visit [facility] Medicine Neurosurgery [address] [place] [address] [address] [place] [address] Karime Jovel NP Right lumbar radiculopathy (Primary Dx); Lumbar stenosis without neurogenic claudication 01/29/2025 10:12 AM CDT - 01/29/2025 11:59 PM CDT Hospital Encounter [facility] [address] [place] [address] Discharge Disposition: Discharge to home or self care 01/29/2025 9:48 AM CDT - 01/29/2025 11:59 PM CDT Hospital Encounter [facility] Radiology [address] [place] [address] [address] [place] [address] Low back pain, non-specific Discharge Disposition: Discharge to home or self care 01/29/2025 Orders Only [facility] [address] [place] [address] Advanced Medicine [address] [place] [address] Leny Morley MD PhD Lumbar radiculopathy (Primary Dx) 01/24/2025 Orders Only [facility] Medicine Neurosurgery [address] [place] [address] 4 [address] [place] [address] Constantin Romero MD Low back pain, non-specific (Primary Dx) 01/16/2025 Telephone [facility] Medicine Scheduling [address] [id number] Shabana Montague from Last 3 Months Immunizations Immunization Administration Dates Next Due Influenza, Quadrivalent, Split, Intramuscular Influenza, Trivalent, IM (MDV) 02/25/2020 Surgical History Surgery Date Site/Laterality Comments TRANSURETHRAL RESECTION OF PROSTATE 03/04/2020 BACK SURGERY KNEE SURGERY CHOLECYSTECTOMY COLONOSCOPY TOTAL HIP ARTHROPLASTY Right PROSTATE BIOPSY 02/16/2020 OTHER SURGICAL HISTORY 07/14/2020 IR Central Line Removal SPINE SURGERY x2 2010, 2016 Medical History Medical History Date Comments Skin cancer Hypertension Chronic kidney disease Delayed emergence from gener al anesthesia 2018 Slow to wake up after Spine surgery (L4-L5) at [facility] Postoperative delirium 02/2020 Wild act ing waking up from anesthesia given for TURP (SLU) Gastric reflux Family History Medical History Relation Name Comments [...] on file Legal Sex Male 3:22 AM [employer] Gender Identity Not on file Sexual Orientation [...] Mass Index 34.87 02/16/2025 10:02 AM CDT Plan of Treatment Health Maintenance Due Date Last Done Comments Colon Cancer Screening-Colonoscopy 1960 Depression Screening 1960 Hepatitis C Screening 1958 Hepatitis B Screening 1976 Pneumococcal vaccine 65+ (1 of 1 - PCV) 2008 Zoster Vaccine (1 of 2) 2008 Fall Risk Assessment 09/10/2021 09/10/2020 Well Visit 65+ 2023 Prostate Cancer Screening-PSA 08/27/2024 08/27/2022, 05/06/2020 Influenza Vaccine (#1) 2024 2, 02/11/2021, 02/25/2020, Additional history exists DTaP/Tdap/Td Vaccine (2 - Td or Tdap) 10/06/2025 10/07/2015 Abdominal Aortic Aneurysm (A AA) Screen Completed 01/03/2024, 03/06/2020, 09/08/2012 Goals Goal Patient Goal Type Associated Problems Recent Progress Patient-Stated? Author CCM Chronic Pain Care Plan Chronic Care Management Worsening( 10:13 AM CDT) Charisse Uribe, RN Note: Problem: Chronic Pain Goals: 1. Minimize further functional decline 2. Maximize quality of life 3. Control pain Strategies: - Activity/exercise program recommendation - Conservative stepwise pain medicine strategy with multi-disciplinary approach - Recommend healthy lifestyle strategies and compensatory methods as needed Procedures Procedure Name Priority Date/Time Associated Diagnosis Comments PAIN MGMT IMAGING LUMBAR/SACRAL SELECTIVE NERVE ROOT INJ (TFE) RIGHT Schedule Routine, Read Routine (OP Routine) 02/16/2025 10:54 AM CDT Lumbar radiculopathy NEURO MR OUTSIDE REFERENCE Routine 01/29/2025 10:12 AM CDT XR SCOLIOSIS 6 OR MORE VIEWS Schedule Routine, Read Routine (OP Routine) 01/29/2025 10:08 AM CDT Low back pain, non-specific PSA SCREEN Routine 08/27/2022 9:[address] ABDOMEN W CONTRAST Routine 09/08/2012 3:30 PM CDT from Last 3 Months or Most Recently Relevant to Health Maintenance Results * Imaging Lumbar/Sacral Selective Nerve Root INJ (TFE) Right ([id number]) (02/16/2025 10:54 AM CDT) Narrative [facility] - 02/16/2025 10:54 AM CDT The images from this study are not interpreted by Radiology. Please refer to the physician's procedure / OR operative note. us Leny Morley MD PhD IMG PAIN MGMT PROCEDURES Final Result Performing Organization Address [facility]/ZIP Co de Phone Number [facility] * Neuro MR Outside Reference (01/29/2025 10:12 AM CDT) Impressions [facility] - 01/29/2025 10:12 AM CDT These images are for Reference purposes only and have not been reviewed by [facility] Radiology. There will be no report generated by a [facility] Radiologist. Narrative [facility] - 01/29/2025 10:12 AM CDT EXAMINATION: Images For Reference Purposes Only us Constantin Romero MD IMG MRI PROCEDURES Final R esult Performing Organization Address [facility]/ZIP Co de Phone Number [facility] * XR Scoliosis 6 or More Views (01/29/2025 10:08 AM CDT) Anatomical Region Laterality Modality Spine N/A Computed Radiogr aphy 01/29/2025 11:2 5 AM CDT Impressions 01/29/2025 12:06 PM CDT 1. No significant scoliosis. 2. Multilevel degenerative disc disease of the lumbar spine, worst and moderate at L3-L4. Dictated by: Kirt Galicia MD The radiology attending physician has personally reviewed this study, and had reviewed and/or edited this written report and agrees with it. Electronically signed by: Geovanny Adan M.D. Narrative 01/29/2025 12:06 PM CDT EXAMINATION: XR SCOLIOSIS 6 OR MORE VIEWS HISTORY: Lumbar pain COMPARISON: MRI 01/24/2025 and radiographs 10/23/2016 FINDINGS: Standing frontal and lateral radiographs of the entire spine as well as 4 dedicated radiographs of the lumbar spine are submitted. There is no significant scoliosis. There is no significant coronal imbalance. There is no significant sagittal imbalance. There is no significant pelvic obliquity. There is mild straightening of the lumbar lordosis. There is mild retrolisthesis of L2 on L3 which is unchanged in flexion and extension. There is multilevel degenerative disc disease of the lumbar spine, worst and moderate L3-L4. Aortic atherosclerotic calcifications. Cholecystectomy. Right total hip arthroplasty. Procedure Note Geovanny Adan MD PhD - 01/29/2025 EXAMINATION: XR SCOLIOSIS 6 OR MORE VIEWS HISTORY: Lumbar pain COMPARISON: MRI 01/24/2025 and radiographs 10/23/2016 FINDINGS: Standing frontal and lateral radiographs of the entire spine as well as 4 dedicated radiographs of the lumbar spine are submitted. There is no significant scoliosis. There is no significant coronal imbalance. There is no significant sagittal imbalance. There is no significant pelvic obliquity. There is mild straightening of the lumbar lordosis. There is mild retrolisthesis of L2 on L3 which is unchanged in flexion and extension. There is multilevel degenerative disc disease of the lumbar spine, worst and moderate L3-L4. Aortic atherosclerotic calcifications. Cholecystectomy. Right total hip arthroplasty. IMPRESSION: 1. No significant scoliosis. 2. Multilevel degenerative disc disease of the lumbar spine, worst and moderate at L3-L4. Dictated by: Kirt Galicia MD The radiology attending physician has personally reviewed this study, and had reviewed and/or edited this written report and agrees with it. Electronically signed by: Geovanny Adan M.D. Constantin Romero MD IMG XR PROCEDURES Final Re sult * PSA screen (08/27/2022 9:42 AM CDT) PSA 0.77 < OR = 4.00 ng/mL [facility] Comment: The total PSA value from this [...] MD LAB BLOOD ORDERABLES Final Resul t [facility] [address] [place] [address] * CT Abdomen W Contrast (09/08/2012 3:30 [...] Recently Relevant to Health Maintenance Insurance MEDICARE [facility] MEDICARE Care Teams Line Controller Relationship Specialty Start Date End Date Beth Chaparro DO [facility] [place] [address] PCP - General Family Medicine 01/17/25 Andre Rosales MD Referring Physician Nephrology 05/06/20
--- OUTSIDE RECORDS SUMMARY | 2025-02-16 11:56 | XMS_ITS ---
Author Organization [facility] it ([facility]) Address [address] [place] [id number] Care Team Providers Care Journeyman Press Operator Name Role Phone Unavailable Unavailable Unavailable Allergies, Adverse Reactions, Alerts This patient has no known allergies or adverse reactions. Problems This patient has no known problems.
--- OUTSIDE RECORDS SUMMARY | 2025-02-16 11:56 | XMS_ITS | Patient Health Record ---
Author Organization Formerly [facility] Address [address] [place] [address] Care Team Providers Care Hourly Shift Name Role Phone Javy Kennedy Primary Care Provider Allergies No Known Allergies Reason For Referral No Information Medications Medication SIG (Take, Route, Frequency, Duration) Notes Start Date End Date Status Lisinopril 10 MG 1 tablet Orally Once a day; Duration: 30 day(s) Active Pravastatin Sodium 20 MG 1 tablet Orally Once a day; Duration: 30 day(s) Active Atenolol 25 MG 1 tablet Orally Once a day; Duration: 30 day(s) Active Problems Problem Type SNOMED Code ICD Code Onset Dates Problem Status W/U Status Risk Notes Problem Information temporarily unavailable Attention and concentration deficit (R41.840) Active confirmed Plan Of Treatment No Information Insurance Providers Payer Name Payer Address Payer Phone Subscriber Number Group Number Insured Name Patient Relationship to Insured Coverage Start Date Coverage End Date [facility] Claims Department [address] [facility] [place] [address] [phone] [id number] Junior Rand Self - patient is the insured 2 Medical (General) History Medical History History ICD Code HTN HLD Decreased GFR Surgical History Surgery Date(Month/Year) Hip replacement Cholecysectomy 3 back surgeries 2 knee arthroplasties Hospitalization History Reason Date(Month/Year) Kidneys
--- OUTSIDE RECORDS SUMMARY | 2025-02-16 11:56 | XMS_ITS | Clinical Summary ---
Author Organization [facility] Address [address] [place] [address] Care Team Providers Care Engineering Job Titles Name Role Phone Michelle Fabian JARAD-SHOE FOLDER Primary Care Provider + Source Comments [facility],non-owned Affiliates and Associated Physician Practices is amultiple site organization consisting of ambulatory clinics and hospital sitesin [place], [place], [place] and [place]. This disclosure is being madepursuant to the Care Everywhere program and may not contain all information available regarding this patient. 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 Not on file Not on file Last Filed Vital Signs Vital Sign Reading Time Taken Comments Blood Pressure 151/90 04/09/2020 10:46 AM HOSPITALITY COORDINATOR Pulse 74 04/09/2020 10:46 AM HOSPITALITY COORDINATOR Temperature 36.1 C (97 F) 04/09/2020 10:46 AM HOSPITALITY COORDINATOR Respiratory Rate 18 04/09/2020 10:4 6 AM HOSPITALITY COORDINATOR Oxygen Saturation 99% 04/09/2020 10: 46 AM HOSPITALITY COORDINATOR Inhaled Oxygen Concentration - - Weight 107.2 kg (236 lb 6.4 oz) 020 10:46 AM HOSPITALITY COORDINATOR Height 180.3 cm (5' 11) 04/09/2020 10: 46 AM HOSPITALITY COORDINATOR Body Mass Index 32.97 04/09/2020 10:46 AM HOSPITALITY COORDINATOR Plan of Treatment Health Maintenance Due Date [...] 04/15/2023 0, 04/01/2020, 03/16/2020, Additional history exists DEPRESSION SCREENING 04/26/2024 COVID-19 VACCINE (1 - season) 2024 INFLUENZA VACCINE (#1) 2024 0, 02/13/2020, 03/04/2018, [...] this topic Medical Devices Implanted Type Area Mixing Plant Operator Device Identifier Shelf Expiration Date Model / Serial / Lot Kit Nima Drflw Embosafe Chrnc Dlys Implanted:Qty: 1 on 03/07/2020 at [facility] [employer] 03/25/2022 [id number] / / [id number] Procedures Procedure Name Priority Date/Time Associated Diagnosis Comments RENAL FUNCTION PANEL Routine 04/15/2020 12:54 PM HOSPITALITY COORDINATOR Acute kidney injury HEPATITIS C AB SCREEN RFLX NAAT QUANT Routine 03/12/2020 1:33 PM HOSPITALITY COORDINATOR from Last 3 Months or Most Recently Relevant to Health Maintenance Results * (ABNORMAL) RENAL FUNCTION PANEL (04/15/2020 12:54 PM HOSPITALITY COORDINATOR) Pathologist [facility] [place] Glucose 96 65 - 99 mg/dL [facility] Comment: Fasting reference interval BUN 58(H) 7 - 25 mg/dL [facility] Creatinine 7.29(H) 0.70 - 1.25 mg/dL [facility] Comment: For patients >49 years of age, the reference limit for Creatinine is approximately 13% higher for people identified as -Malian. eGFR by MDRD 7(L) > OR = [...] 5.1 g/dL [facility] Comment: Test Performed at: [email or web address] [address] [place] [address] HAMLET LAU DO,MPH Blood BLOOD SPECIMEN / Unknown 04/15/2020 12:54 PM HOSPITALITY COORDINATOR 04/15/2020 12:56 PM HOSPITALITY COORDINATOR Jermaine Yost MD LAB - CHEMISTRY ORDERABLES Final Result [facility] [address] [place] [address] * HEPATITIS C AB SCREEN RFLX NAAT QUANT (03/12/2020 1:33 PM HOSPITALITY COORDINATOR) Pathologist [facility] [place] Hepatitis C Antibody Non-react viji Non-reac tive 03/12/2020 2:53 PM HOSPITALITY COORDINATOR [facility] Comment:Hepatitis C Antibody screen indicates [...] Lab Venipuncture / Unknown 03/12/2020 1:33 PM HOSPITALITY COORDINATOR 03/12/2020 2:53 PM HOSPITALITY COORDINATOR us Jose Garcia MD LAB - CHEMISTRY ORDERABLES F inal Result [facility] [address] [place] [address], [place] [phone] from Last 3 Months or Most Recently Relevant to Health Maintenance Insurance [facility] Advance Directives * Full Code (Latest Code Status on File) Date Activated Date Inactivated Comments 03/04/2020 4:49 PM 03/16/2020 4:19 PM Care Teams Engineering Job Titles Relationship Specialty Start Date End Date Michelle Fabian APRN-CNP [address] [phone] PCP - General 03/29/19
[2025-02-16 12:05] LABS: Hematocrit 39.8 % (42.0-52.0); Hemoglobin 12.6 g/dL (14.0-18.0); Immature Granulocyte Percent A 0.5 % (0-0.5); Lymphocytes Absolute Auto 1.60 K/mm3 (0.9-3.2); Mean Corpuscular HGB Conc 31.7 g/dl (32-36); Mean Corpuscular Hemoglobin 27.3 pg (26-34); Mean Corpuscular Volume 86.1 fl (80-100); Nucleated Red Blood Cells Absolute Auto 0.000 K/mm3 (0.0-0.012); Nucleated Red Blood Cells Perc 0.0 % (0.0-0.2); Platelet Count Result 237 k/mm3 (150-375); Red Blood Count 4.62 M/mm3 (4.6-6.20); White Blood Count 8.0 K/mm3 (4.5-10.0)
[2025-02-16 12:09] LABS: Blood Urea Nitrogen 29 mg/dL (8-26); Carbon Dioxide 23 mmol/L (22-30); Chloride 108 mmol/L (98-109); Estimated Glomerular Filt Rate 27; Glucose 134 mg/dL (70-105); Ionized Calcium (POC) 1.21 mmol/L (1.11-1.31); Potassium 4.4 mmol/L (3.5-4.9); Sodium 142 mmol/L (138-146)
== END 2025-02-16 11:54 | disposition home or self-care (01) ==
LOC: ANHLAB 11:54
PROVIDERS: PCP Family Medicine; Visit Provider Internal Medicine Hematology & Oncology
DX: D64.9 Anemia, unspecified (principal)
CPT/HCPCS: 36415; 80047; 85025

== ENCOUNTER 2025-03-20 10:30 | Outpatient (RCR) | payer MEDICARE, SELFPAY ==
--- NOTE | 2025-02-13 17:34 | PTOPEVAL1 ---
Assessment and note entered by Charisse Stevens, PT Evaluation Information Assessment Status Evaluation Diagnosis Z96.641,M25.551 ICD-10 Condition Codes (PT) Pain in right hip M25.551,Difficulty Walking R26.2 ,Abnormalities of gait and mobility R26.9,Weakness R53.1 Onset 2 months ago Subjective Information Pt reports that he has been feeling R LE weakness he started noticing it when he was getting in and out of the car, getting in and out of bed. He received therapy at a different clinic supposed to be for the drop foot but it increased the pain on the back. He decided to cancel that and went to see Dr. June, received oral prednisone, cortisone injection and he felt relief right away with the pain levels, however the weakness persist . MRI results showed stenosis of the back. L LE numbness (chronic) h/o sciatic nerve involvement to RLE; Pain: stabbing, striking quick pain to the back then to the buttocks and legs feel like its gonna give out on him. worse: prolonged standing or walking, getting up from sitting relieves pain: sitting, laying on the R side Assessment PT Clinical Summary Patient presents with complaints of low back pain radiating into the RLE. Describes pain as sharp, shooting with intermittent numbness/tingling along the buttocks and hamstrings area. Pain worsens with coming up from bending forward position, prolonged standing, and transitional movements (e. g., [id number]). Relief noted with lying supine, sitting down or taking anti-inflammatory medications. Pt demos weakness of the hip abductors (gluteus medius/minimus), impaired single-leg stance stability, and a compensatory Trendelenburg gait pattern requiring AD for safety ; also presents with limited lumbar mobility, Neural tension and radicular symptoms, Core and LE weakness, Abnormal gait mechanics Patient demonstrates good rehab potential with no red flags at present. PT intervention is appropriate and medically necessary to improve safe and indep community ambulation. Plan of Care Interventions Check Out for Orthotic/Prosthetic,Electrical Stimulation,Gait Training,Hot Pack/Cold Pack, Manual Therapy,Neuro Re-education,Patient/ Caregiver Education,Therapeutic Activities, Therapeutic Exercise,Ultrasound PT Services Indicated Yes Treatment Frequency and 2x/wk x 12 visits Duration These treatments will address the objective and functional deficits as defined above. The patient will be advanced safely and appropriately in order for the patient to progress towards his/her prior level of function. Additional exercises will be introduced and as well as a comprehensive home exercise program upon discharge, if needed, ?to ensure carryover of functional gains achieved in the clinic. This treatment plan has been reviewed and agreement upon by the patient.
--- NOTE | 2025-02-20 09:14 | OPREHPOC ---
Outpatient Therapy Plan of Care This is a Multidisciplinary Plan of Care that may contain components documented by all disciplines (PT, OT, and ST.) PT Problem 1 PT Problem #1 Knowledge Deficit PT Goal 1 Goal / Goal Update Pt will demo good understanding of diagnosis, prognosis and perform return demo of HEPs with 90% accuracy without cues. Target Visit 10 PT Problem 2 PT Problem #2 Pain PT Goal 1 Goal / Goal Update Patient will report pain =3/10 with bed mobility, dynamic standing tasks and ambulation. Target Visit 12 PT Problem 3 PT Problem #3 Impaired Gait PT Goal 1 Goal / Goal Update Patient will demonstrate symmetrical gait and improved balance during ambulation on various surfaces without AD (e.g., turning, obstacle navigation). Target Visit 12 PT Problem 4 PT Problem #4 Impaired Functional Mobility PT Goal 1 Goal / Goal Update Patient will report =80% improvement in function on LEFS (Lower Extremity Functional Scale) or similar outcome measure. Target Visit 12
--- NOTE | 2025-03-20 14:41 | PTOPDC ---
Assessment and note entered by Charisse Stevens, PT Discharge Information Assessment Status Discharge Diagnosis Z96.641,M25.551 ICD-10 Condition Codes (PT) Pain in right hip M25.551,Difficulty Walking R26.2 ,Abnormalities of gait and mobility R26.9,Weakness R53.1 Onset 2 months ago Subjective Information Pt reports that his R hip and low back are not bothering him right now. Continue to feel pain with lifting R LE. Still experiencing difficulty getting in and out of the car, getting in and out of bed. He received a steroid injection for the back which took care of the pain in the back and the hip. States the exercises he does here in therapy has helped a lot. He is more aware of his posture and tries to use his core muscles more; the exercises has helped him get stronger generally. Reported Pain Level Pain Score 0: Self Report Additional Pain Score Comments at eval: 10/10 when turning in bed or turning the wrong way currently down to: 6/10 at worst Assessment PT Clinical Summary Pt received 9 treatment sessions and demos gains in strength, balance and endurance. He has partially met his goal but he is compliant with HEPs. He continues to demo antalgic gait pattern with trendelenburg sag and increased difficulty performing active hip and knee flexion on the R side which significantly impacts his ability to perform functional mobility and transfers (getting in and out of bed, in and out of the bus, going up the steps). He is agreeable to DC today and to consult with Ortho regarding a different treatment plan to address the pain and hip flexor weakness. He ambulates with a cane and was educated about the benefits of adding heel lift for alignment and postural correction. He will discuss this with his Ortho. Skilled PT discontinued at this time. Plan of Care PT Services Indicated No
== END 2025-03-23 11:40 | disposition home or self-care (01) ==
LOC: ANHPT 10:30
PROVIDERS: PCP Family Medicine; Visit Provider Orthopaedic Surgery
DX: Z47.1 Aftercare following joint replacement surgery (principal); M25.551 Pain in right hip; Z96.641 Presence of right artificial hip joint
CPT/HCPCS: 97014; 97110; 97140; 97161; 97530; 97750; G0283